=== PATIENT | male | born 1940 | race Caucasian/White ===

== ENCOUNTER → 2017-03-07 | Outpatient (CLI) | payer BC, OTHER ==
[~2017-03-07] MED LIST: AMANTADINE50 MG/5 ML PO; B COMPLEX1 EAC1 PO; B COMPLEX1 EACH PO; CENTRUM SILVER1 EAC2 PO; CIPRO500 MG PERTUBE; CIPRO500 MG PO; COENZYME Q10100 MG PO; COZAAR 50 MG TA50 M2 PO; CUBICIN500 MG IV; DIFLUCAN200 MG PO; EFFEXOR XR37.5 MG PO; EFFEXOR XR75 MG PO; JUVEN PACKET1 EACH PO; LIPITOR 20 MG T20 M1 PO; LOPRESSOR50 PO; METHYLPHENIDATE10 MG PO; MINOCIN100 MG PO; MOBIC7.5 MG PO; NEXIUM20 MG PO; NEXIUM40 MG PO; NORCO 5-325 TA1 EACH PO; NORVASC5 MG PO; NYSTATIN 1100000 U/M PO; OXYBUTYNIN 5 MG5 M2 PO; PLAVIX 75 MG TA75 M1 PO; PROSCAR 5MG TABL5 MG PO; VANCOMYCIN1 GM/2502 IVPB; VITAMIN D2000 UNIT PO; VITAMIN D3400 UNIT PO; VITAMINC500 PO; Vitamin D3 PO; XANAX 0.25 MG0.25 MG PO; ZINC50 MG PO
--- NOTE | 2017-03-08 13:25 | CON ---
[address] [address] CONSULTATION Name: GIANCARLODENIS Salomon Room: [facility]#: [id number] Admission: 03/07/17 Attend Phys: Jhonny Barahona DPM Discharge: Date of : 42 Report #: [id number] THIS REPORT FOR: //name// CC: Jhonny Arevalo DATE OF SERVICE: 03/07/2017 ATTENDING PHYSICIAN: Jhonny Barahona DPM REASON FOR EVALUATION: Right heel chronic ulceration with probable osteomyelitis involving the calcaneus. HISTORY OF PRESENT ILLNESS: Chart reviewed, the patient examined. The patient returns in followup. Clinically, he is about the same. Per spouse, he is eating well and has no evidence of fevers. On examination, the wound does appear to be generally clean; however, there is clearly exposed bone per debridement by Dr. Barahona. There is some bloody drainage. There is no evidence of purulence and no odor at this point. Deep right heel infection with exposed bone. I think at this point, we would extend the antibiotics, particularly minocycline at least another 2 weeks and may will be longer, he seems to be tolerating it okay, I suspect this is a better option than some sort of intervention where he ultimately his leg. <ELECTRONICALLY SIGNED> By: Travis Copeland MD 03/08/17 1325 0740 [id number] Copeland MD /kaden
== END ==
LOC: M.WC 01:51
DX: L89.614 Pressure ulcer of right heel, stage 4 (principal); I10 Essential (primary) hypertension; M86.071 Acute hematogenous osteomyelitis, right ankle and foot; Z85.51 Personal history of malignant neoplasm of bladder

== ENCOUNTER → 2017-03-21 | Outpatient (CLI) | payer BC, OTHER | LOC: M.WC 01:25 | DX: L89.614 Pressure ulcer of right heel, stage 4 (principal); M86.071 Acute hematogenous osteomyelitis, right ankle and foot; Z85.51 Personal history of malignant neoplasm of bladder; I10 Essential (primary) hypertension ==

== ENCOUNTER → 2017-04-04 | Outpatient (CLI) | payer BC, OTHER ==
--- NOTE | 2017-04-05 13:58 | CON ---
[address] [address] CONSULTATION Name: DENIS MONDRAGON Room: [facility].#: [id number] Admission: 04/04/17 Attend Phys: Jhonny Barahona DPM Discharge: Date of : 42 Report #: [id number] THIS REPORT FOR: //name// CC: Jhonny Arevalo DATE OF SERVICE: 04/04/2017 ATTENDING PHYSICIAN: Dr. Jhonny Mccann. He is seen in the outpatient wound care center for chronic infection involving the right heel, probable calcaneal osteomyelitis. 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 He was switched to a topical gentamicin. The wound clinically has improved. There is a minimal residual inflammation, it has actually decreased in size fairly dramatically, although there is still communication with the bone on probing. Chronic calcaneal osteomyelitis. At this point, continue current approach and see how he does clinically with the topical gentamicin. Secondly, he has developed some cloudiness in his urine. He has a longstanding indwelling catheter that was replaced recently. He is followed by Urology who did a culture earlier this week. Spouse is waiting to hear. At this point, he is not particularly symptomatic. He has not been systemically ill. He is not showing signs that he typically shows with urinary tract infections. We will hold off awaiting the culture results before we prescribe antibiotics. She is to call Urology in the morning. If family unable, to let me know and can empirically prescribe some therapy. <ELECTRONICALLY SIGNED> By: Travis Copeland MD 04/05/17 1358 0656 1054Josealirio Copeland MD /nt
== END ==
LOC: M.WC 01:28
DX: L89.614 Pressure ulcer of right heel, stage 4 (principal); M86.071 Acute hematogenous osteomyelitis, right ankle and foot; L89.892 Pressure ulcer of other site, stage 2; L89.893 Pressure ulcer of other site, stage 3; I10 Essential (primary) hypertension; Z85.51 Personal history of malignant neoplasm of bladder

== ENCOUNTER → 2017-04-18 | Outpatient (CLI) | payer BC, OTHER ==
--- NOTE | 2017-04-19 12:55 | CON ---
[address] [address] CONSULTATION Name: DENIS MONDRAGON Room: [facility]#: [id number] Admission: 04/18/17 Attend Phys: Jhonny Barahona DPM Discharge: Date of : 41 Report #: [id number] THIS REPORT FOR: //name// CC: Jhonny Arevalo DATE OF SERVICE: 04/18/2017 INFECTIOUS DISEASE CONSULTATION ATTENDING PHYSICIAN: Jhonny Barahona DPM. HISTORY OF PRESENT ILLNESS: He is here for ongoing treatment of right medial heel chronic ulceration and has clinical evidence of osteomyelitis, although he generally had been stable. The patient returns today in followup. He is on topical gentamicin at this point. The wound appears to be getting smaller, although there is still exposed bone. There is really minimal inflammation noted at the site. On questioning his spouse, he has not had fevers. He has been eating fairly well. He has had couple episodes of unexplained emesis, which is unusual for him. ASSESSMENT AND PLAN: Chronic right medial heel ulcer. At this point, we would continue the topical gentamicin based on previous cultures. We will monitor on an intermittent basis. At any point if he gets ill, we may have to reconsider systemic antibiotics. The wound appears to be getting smaller. The bone is hard at this point per Dr. Barahona. We will see him as needed. <ELECTRONICALLY SIGNED> By: Travis Copeland MD 04/19/17 1255 0728 1055Travis Copeland MD /kaden
== END ==
LOC: M.WC 01:46
DX: L89.614 Pressure ulcer of right heel, stage 4 (principal); M86.071 Acute hematogenous osteomyelitis, right ankle and foot; I10 Essential (primary) hypertension; L84 Corns and callosities; Z85.51 Personal history of malignant neoplasm of bladder

== ENCOUNTER → 2017-05-02 | Outpatient (CLI) | payer BC ==
--- NOTE | 2017-05-03 11:32 | CON ---
[address] [address] CONSULTATION Name: DENIS MONDRAGON Room: [facility].#: [id number] Admission: 05/02/17 Attend Phys: Jhonny Barahona DPM Discharge: Date of : 42 Report #: [id number] THIS REPORT FOR: //name// CC: Jhonny Arevalo DATE OF SERVICE: 05/02/2017 ATTENDING PHYSICIAN: Dr. Jhonny Barahona. He is here for chronic osteomyelitis involving the right calcaneus medial aspect setting of a chronic wound. HISTORY OF PRESENT ILLNESS: The patient returns today in followup of ongoing treatment, essentially topical for chronic osteomyelitis involving the left calcaneus. He has been fairly stable. He did receive a course of systemic antibiotics to treat a difficult complicated urinary tract infection and seems to have improved based on appearance and the spouse's opinion. He has not had fevers. He has been eating fairly well. On examination, the wound was debrided by Dr. Barahona. He noted there was some hard bone noted at the base, although milder inflammation noted superficially. Chronic ulceration involving the medial aspect of the right heel with suspected chronic osteomyelitis. We will continue topical gentamicin at this point. Wound actually seems to be healing with a sinus tract. Although given his overall situation and apparent lack of any sort of discomfort associated with it, I think it is reasonable to continue on this approach. See him in [address] weeks, [address]. Barahona is going to see him in 2. <ELECTRONICALLY SIGNED> By: Travis Copeland MD 05/03/17 1132 0653 0745Josealirio Copeland MD /nt
== END ==
LOC: M.WC 03:30
DX: L89.614 Pressure ulcer of right heel, stage 4 (principal); I10 Essential (primary) hypertension; M86.071 Acute hematogenous osteomyelitis, right ankle and foot; Z85.51 Personal history of malignant neoplasm of bladder

== ENCOUNTER → 2017-05-16 | Outpatient (CLI) | payer BC | LOC: M.WC 01:57 | DX: L89.614 Pressure ulcer of right heel, stage 4 (principal); I10 Essential (primary) hypertension; M86.071 Acute hematogenous osteomyelitis, right ankle and foot; Z85.51 Personal history of malignant neoplasm of bladder ==

== ENCOUNTER → 2017-05-30 | Outpatient (CLI) | payer BC ==
--- NOTE | 2017-05-31 10:52 | CON ---
[address] [address] CONSULTATION Name: DENIS MONDRAGON Room: [facility]#: [id number] Admission: 05/30/17 Attend Phys: Jhonny Barahona DPM Discharge: Date of : 41 Report #: [id number] THIS REPORT FOR: //name// CC: Jhonny Arevalo DATE OF SERVICE: 05/30/2017 ATTENDING PHYSICIAN: Jhonny Barahona DPM HISTORY OF PRESENT ILLNESS: He is here for chronic ulceration involving the posterolateral aspect of the right heel. On evaluation, it was noted surprisingly, he did have further decrease in the overall size of the wound, had longstanding issues with exposed bone that along with the case, has been utilizing topical therapy with gentamicin; however, he has developed 2 new wounds overlying 2 sites involving the Achilles as the insertion site was more proximal. These appear to be pressure related. There was some necrotic tissue at the base. Dr. Barahona removed that and bled easily. Secondly, he was called earlier this week, noted darkening of the urine, so urinalysis was sent off on Sunday which would have been the ; we are awaiting those results. The patient will perhaps start systemic antibiotics if indeed that culture proved to be positive. At this point, he is not overtly toxic. He had the catheter changed on the date of the culture and was collected after the exchange. Push the fluids including potentially acidifying the urine. We will discuss with him the next day or two as the results are available. We will see him back in 4 weeks. Continue topical therapy and wound care as prescribed by Dr. Barahona. <ELECTRONICALLY SIGNED> By: Travis Copeland MD 05/31/17 1052 1658 23Joyu Copeland MD /nt
== END ==
LOC: M.WC 02:26
DX: L89.614 Pressure ulcer of right heel, stage 4 (principal); M86.071 Acute hematogenous osteomyelitis, right ankle and foot; I10 Essential (primary) hypertension; Z85.51 Personal history of malignant neoplasm of bladder

== ENCOUNTER → 2017-06-06 | Outpatient (CLI) | payer BC | LOC: M.WC 01:43 | DX: S91.201D Unspecified open wound of right great toe with damage to nail, subsequent encounter (principal); S91.204D Unspecified open wound of right lesser toe(s) with damage to nail, subsequent encounter; S91.105D Unspecified open wound of left lesser toe(s) without damage to nail, subsequent encounter; L89.894 Pressure ulcer of other site, stage 4; M86.071 Acute hematogenous osteomyelitis, right ankle and foot; I10 Essential (primary) hypertension; Z85.51 Personal history of malignant neoplasm of bladder; X58.XXXD Exposure to other specified factors, subsequent encounter ==

== ENCOUNTER → 2017-06-13 | Outpatient (CLI) | payer BC | LOC: M.WC 02:52 | DX: L89.614 Pressure ulcer of right heel, stage 4 (principal); L89.893 Pressure ulcer of other site, stage 3; M86.071 Acute hematogenous osteomyelitis, right ankle and foot; I10 Essential (primary) hypertension; Z85.51 Personal history of malignant neoplasm of bladder ==

== ENCOUNTER → 2017-07-04 | Outpatient (CLI) | payer BC ==
[2017-07-04 15:05] LABS: URINE BILIRUBIN NEGATIVE (Negative); URINE BLOOD TRACE (Negative); URINE CLARITY CLOUDY; URINE COLOR YELLOW; URINE GLUCOSE-RANDOM NEGATIVE (Negative); URINE KETONES NEGATIVE (Negative); URINE LEUKOCYTES-REFLEX 2+ (Negative); URINE NITRITE-REFLEX POSITIVE (Negative); URINE PROTEIN 1+ (Negative); URINE SPECIFIC GRAVITY >= 1.030 (1.005-1.030); URINE UROBILINOGEN 0.2 E.U./dl (0.2-1.0)
[2017-07-04 15:12] LABS: HYALINE CASTS 0-3 Few /LPF (None Seen)
[2017-07-04 15:14] LABS: BACTERIA-REFLEX >30 Many /HPF (None Seen)
[2017-07-04 15:15] LABS: MUCUS 0-3 Light strn/LPF (None Seen); URINE WBC-REFLEX >25 Many /HPF (0-5); WBC CLUMPS Few (None Seen)
[2017-07-04 15:16] LABS: CRYSTALS None Seen /LPF (None Seen); SQUAMOUS 0-3 Few /LPF (0-3); URINE RBC 0-2 Rare /HPF (0-2)
--- NOTE | 2017-07-05 12:18 | CON ---
[address] [address] CONSULTATION Name: GIANCARLODENIS Latif Room: [facility]#: [id number] Admission: 07/04/17 Attend Phys: Jhonny Barahona DPM Discharge: Date of : 41 Report #: [id number] THIS REPORT FOR: //name// CC: Jhonny Arevalo DATE OF SERVICE: 07/04/2017 INFECTIOUS DISEASE CONSULTATION ATTENDING PHYSICIAN: Jhonny Barahona DPM. HISTORY OF PRESENT ILLNESS: Here for right heel chronic ulceration. Chart reviewed, the patient examined. The patient returns today in followup. Apparently, he has not been feeling well per spouse. Difficult to ascertain all the details. Certainly concerned about complicated urinary tract infection. He has a chronic indwelling Dumont. In addition to that, he has progression of the size of his heel wound. It is clear that he is unable to keep pressure off situated in his wheelchair. On examination, there is no exposed calcaneus at this point. ASSESSMENT AND PLAN: Chronic heel ulceration. We will continue efforts to offload in the setting of foot drop and ankle deviation, including topical therapy. We will additionally order a urinalysis for culture as required. We will see him back in 2 weeks. <ELECTRONICALLY SIGNED> By: Travis Copeland MD 07/05/17 1218 1453 [id number] Copeland MD /kaden
== END ==
LOC: M.WC 02:55
PROVIDERS: Podiatrist Foot & Ankle Surgery
DX: L89.614 Pressure ulcer of right heel, stage 4 (principal); I10 Essential (primary) hypertension; M86.071 Acute hematogenous osteomyelitis, right ankle and foot; R82.99 Other abnormal findings in urine; Z87.820 Personal history of traumatic brain injury; Z85.51 Personal history of malignant neoplasm of bladder

== ENCOUNTER → 2017-07-18 | Outpatient (CLI) | payer BC ==
--- NOTE | 2017-07-19 12:33 | CON ---
[address] [address] CONSULTATION Name: DENIS MONDRAGON Room: [facility].#: [id number] Admission: 07/18/17 Attend Phys: Jhonny Barahona DPM Discharge: Date of : 41 Report #: [id number] THIS REPORT FOR: //name// CC: Jhonny Arevalo DATE OF SERVICE: 07/18/2017 INFECTIOUS DISEASE CONSULTATION FOLLOWUP The patient is seen at the [facility] [place]. ATTENDING PHYSICIAN: Dr. Jhonny Mccann. HISTORY OF PRESENT ILLNESS: He is here for followup right posterior heel chronic ulceration. He likely has a calcaneal chronic osteomyelitis. The patient returns in followup, having been seen in the last couple of weeks. He was determined to have complicated urinary tract infection. He does have a long-standing indwelling Dumont catheter with growth of Escherichia coli. He was placed on ciprofloxacin and seems to have responded. On wound evaluation, there is still a moderate degree of debris and some necrotic material. There is no exposed bone at this point. The original wound seems to have healed over the medial aspect. ASSESSMENT AND PLAN: Chronic calcaneal osteomyelitis. At this point, utilizing some topical therapy to the wound site. He has been clinically stable. He is on ciprofloxacin and we will extend that. Due to ongoing issues with malodor of the urine, the catheter needs to be changed as well. I did discuss with the patient's spouse to see in followup at his next visit. <ELECTRONICALLY SIGNED> By: Travis Copeland MD 07/19/17 1233 0837 1035Josealirio Copeland MD /nt
== END ==
LOC: M.WC 03:41
DX: L89.614 Pressure ulcer of right heel, stage 4 (principal); S91.101D Unspecified open wound of right great toe without damage to nail, subsequent encounter; S91.204D Unspecified open wound of right lesser toe(s) with damage to nail, subsequent encounter; S91.105D Unspecified open wound of left lesser toe(s) without damage to nail, subsequent encounter; I10 Essential (primary) hypertension; M86.071 Acute hematogenous osteomyelitis, right ankle and foot; Z87.820 Personal history of traumatic brain injury; Z85.51 Personal history of malignant neoplasm of bladder; X58.XXXD Exposure to other specified factors, subsequent encounter

== ENCOUNTER → 2017-08-01 | Outpatient (CLI) | payer BC | LOC: M.WC 04:15 | DX: L89.614 Pressure ulcer of right heel, stage 4 (principal); I10 Essential (primary) hypertension; M86.071 Acute hematogenous osteomyelitis, right ankle and foot; Z87.820 Personal history of traumatic brain injury; Z85.51 Personal history of malignant neoplasm of bladder ==

== ENCOUNTER 2017-08-08 03:36 | Inpatient (IN) | payer BC ==
[~2017-08-08] VITALS: Ht 172.7 cm; Wt 76.2 kg
[~2017-08-08 03:36] MED LIST changes: -COENZYME Q10100 MG PO; -PLAVIX 75 MG TA75 M1 PO; -XANAX 0.25 MG0.25 MG PO; -ZINC50 MG PO
[2017-08-08 14:15] VITALS: BP 124/65
[2017-08-08] MEDS ORDERED: ZINC50 MG PO (15:31)
[2017-08-08] MEDS ORDERED: LOPRESSOR50 PO (15:32)
[2017-08-08] MEDS ORDERED: MOBIC7.5 MG PO (15:34)
[2017-08-08] MEDS ORDERED: COENZYME Q10100 MG PO (15:39)
[2017-08-08] MEDS ORDERED: AMANTADINE50 MG/5 ML PO (15:40)
[2017-08-08] MEDS ORDERED: XANAX 0.25 MG0.25 MG PO (15:40)
[2017-08-08 16:05] LABS: HEMATOCRIT 39.7 % (42.0-52.0); HEMOGLOBIN 13.3 gm/dL (14.0-18.0); MCH 29.7 pg (26.0-34.0); MCHC 33.6 g/dL (28.0-37.0); MCV 88.4 fL (80.0-100.0); MPV 8.2 fl. (7.2-11.1); RBC 4.49 mil/uL (4.50-6.00); RDW-CV 13.9 % (10.5-14.5); WBC 15.8 thou/uL (4.0-11.0)
[2017-08-08 16:05] LABS: URINE BILIRUBIN NEGATIVE (Negative); URINE BLOOD TRACE (Negative); URINE CLARITY CLEAR; URINE COLOR YELLOW; URINE GLUCOSE-RANDOM NEGATIVE (Negative); URINE KETONES NEGATIVE (Negative); URINE LEUKOCYTES-REFLEX 3+ (Negative); URINE NITRITE-REFLEX POSITIVE (Negative); URINE PROTEIN NEGATIVE (Negative); URINE SPECIFIC GRAVITY 1.025 (1.005-1.030); URINE UROBILINOGEN 0.2 E.U./dl (0.2-1.0)
[2017-08-08 16:13] LABS: SQUAMOUS NONE SEEN /LPF (0-3); URINE WBC-REFLEX >25 Many /HPF (0-5)
[2017-08-08 16:13] LABS: INR 1.1; PROTIME 10.4 Seconds (9.20-11.50)
[2017-08-08 16:14] LABS: CASTS None Seen /LPF (None Seen); CRYSTALS None Seen /LPF (None Seen); MUCUS None Seen strn/LPF (None Seen); URINE RBC 0-2 Rare /HPF (0-2); WBC CLUMPS Few (None Seen)
[2017-08-08 16:15] LABS: CALCIUM 9.9 mg/dL (8.5-10.1); CREATININE 0.9 mg/dL (0.6-1.3); POTASSIUM 4.2 mmol/L (3.5-5.1)
[2017-08-08 16:29] LABS: ALBUMIN 3.3 g/dL (3.4-5.0); TOTAL BILIRUBIN 0.4 mg/dL (<0.1-1.0); TOTAL PROTEIN 7.4 g/dL (6.4-8.2)
[2017-08-09 00:29] VITALS: BP 124/82
[2017-08-09 04:57] LABS: ABSOLUTE BASOPHILS 0.1 thou/uL (0.0-0.2); ABSOLUTE EOSINOPHILS 0.5 thou/uL (0.0-0.7); ABSOLUTE LYMPHOCYTES 3.1 thou/uL (0.8-5.3); ABSOLUTE MONOCYTES 1.3 thou/uL (0.0-1.2); ABSOLUTE NEUTROPHILS 7.9 thou/uL (1.6-8.1); BASOPHILS 0.9 %; EOSINOPHILS 3.7 %; HEMATOCRIT 37.8 % (42.0-52.0); HEMOGLOBIN 12.6 gm/dL (14.0-18.0); MCH 29.4 pg (26.0-34.0); MCHC 33.5 g/dL (28.0-37.0); MONOCYTES 10.3 %; MPV 8.2 fl. (7.2-11.1); NUCLEATED RBCS 0 /100WBC; PLATELET COUNT* 318 thou/uL (150-400); POLYS 61.1 %; RDW-CV 13.9 % (10.5-14.5); WBC 12.9 thou/uL (4.0-11.0)
[2017-08-09 05:09] LABS: CALCIUM 9.4 mg/dL (8.5-10.1); CREATININE 0.9 mg/dL (0.6-1.3); POTASSIUM 3.7 mmol/L (3.5-5.1)
[2017-08-09 09:30] VITALS: BP 113/55
--- NOTE | 2017-08-09 11:52 | CON ---
[facility] [address] [place] [address] CONSULTATION Name: DENIS MONDRAGON Room: [address] IN M.R.#: [id number] Admission: 08/08/17 Attend Phys: Ezekiel Downs MD Discharge: Date of : 41 Report #: [id number] THIS REPORT FOR: //name// CC: Ezekiel [facility] DATE OF SERVICE: 08/08/2017 INFECTIOUS DISEASE CONSULTATION ATTENDING PHYSICIAN: Ezekiel Downs M.D. REASON FOR EVALUATION: Chronic osteomyelitis involving the right calcaneus. HISTORY OF PRESENT ILLNESS: Chart reviewed, the patient examined. This is a 77-year-old with extensive medical history, who has traumatic brain injury; it has left quite debilitated. He is noncommunicative at the moment, but generally has very little interaction. It is unclear the degree in which he understands. He is paraplegic. He has had a chronic ulceration involving the right heel. He has been followed by the Wound Care Center. He had been on chronic suppressive therapy due to isolation with methicillin-resistant Staphylococcus aureus. He was seen in the Wound Care today and was felt to have progressed significantly from previous. He had been relatively stable from the wound standpoint for the last several weeks. He has had issues ongoing with chronic indwelling catheter and recurrent urinary tract infections. He continues to show evidence of marked pyuria and cultures, both the wound and the urine are pending, although gram stain of the former shows gram-positive cocci. He is scheduled for n.p.o. status for possible surgery. Imaging studies are pending. ALLERGIES: None known. MEDICATIONS: Include metoprolol, oxybutynin, finasteride, cholecalciferol, venlafaxine, amlodipine, pantoprazole, atorvastatin, losartan, ascorbic acid, enoxaparin, p.r.n. analgesics and antiemetics. PAST MEDICAL HISTORY: As described above, traumatic brain injury, hypertension, history of bladder cancer and right carotid endarterectomy. SOCIAL HISTORY: Former smoker. No ethanol. FAMILY HISTORY: Noncontributory. REVIEW OF SYSTEMS: Not obtained. PHYSICAL EXAMINATION: [place] [address] CONSULTATION Name: DENIS MONDRAGON Room: [address] IN [facility]#: [id number] Admission: 08/08/17 Attend Phys: Ezekiel Downs MD Discharge: Date of : 41 Report #: [id number] GENERAL: He is chronically ill-appearing. He is really minimally responsive at this point, in lcbu-ni-dhynnpob distress. VITAL SIGNS: Temperature 98.2, pulse 78, respirations 16 and blood pressure 124/65. SKIN: Warm and dry. NECK: Appears to be supple. LUNGS: Diminished breath sounds; otherwise, I think, fairly clear. HEART: Regular. I do not appreciate a murmur. ABDOMEN: Soft, mildly distended. There are no peritoneal signs. EXTREMITIES: He has got a dressing on his foot. GENITOURINARY: Deferred. RECTAL: Deferred. LABORATORY DATA: His wound culture is pending. Gram stain showed moderate gram-positive cocci, few white cells. CBC: White count of 15.8, H and H 13.3 and 39.7 and platelets of 342,000. Urinalysis greater than 25 white cells, 10-30 bacteria. Lactic acid 2.1. Electrolytes: Sodium 139, potassium 4.2, chloride 100, bicarbonate is 30, BUN and creatinine 25 and 0.9 and glucose 104. LFTs unremarkable. Albumin of 3.3. Total protein of 7.4. Estimated GFR of 82. ASSESSMENT AND PLAN: Chronic osteomyelitis involving the right calcaneus. We will start empiric therapy. He has known history of methicillin-resistant Staphylococcus aureus. He has really been on chronic suppressive therapy for a number of weeks to months, now seems to have worsened. We will await imaging studies, pending decision by Dr. Barahona about any surgical intervention at that point. I know there has been a discussion in the past about possible amputation. At this point, it does not seem like the leg is particularly functional and it may be a considered course of action. <ELECTRONICALLY SIGNED> By: Travis Copeland MD 08/09/17 1152 1646 0210Joyu Copeland MD /nt
--- NOTE | 2017-08-09 15:18 | EKG ---
[place] [address] ELECTROCARDIOGRAM REPORT Name: DENIS MONDRAGON Room: [address] ADM IN M.R.#: [id number] Admission: 08/08/17 Attend Phys: Ezekiel Downs MD Discharge: Date of : 41 Report #: [id number] THIS REPORT FOR: //name// [facility] Test Date: 2017-08-09 Test Time: 12:59:54 Pat Name: DENIS MONDRAGON Department: Room: [address] Gender: M Ammonia Refrigeration Technician: : 1940 Requested By: Jhonny Barahona Order Number: [id number] Reading MD: Harry Woody Measurements Intervals [place] Rate: 61 P: -59 SD: 232 QRS: 4 QRSD: 89 T: 101 QT: 405 QTc: 408 Interpretive Statements Sinus or ectopic atrial rhythm Prolonged SD interval Abnormal R-wave progression, early transition Nonspecific T abnormalities, lateral leads Compared to ECG 01/31/2017 16:22:03 Ectopic atrial rhythm now present First degree AV block now present Sinus rhythm no longer present T-wave abnormality still present Electronically Signed On 08-09-2017 15:18:04 CDT by Harry Woody [email or web address] <ELECTRONICALLY SIGNED> By: Harry Woody MD, [facility] 08/09/17 1518 1259 1259 Harry Woody MD, [facility] /EPI
[2017-08-09 18:54] VITALS: BP 131/68
[2017-08-09 19:45] VITALS: BP 152/65
[2017-08-10 00:31] VITALS: BP 120/54
[2017-08-10 03:53] VITALS: BP 133/58
[2017-08-10 07:50] VITALS: BP 114/54
[2017-08-10 11:09] VITALS: BP 120/47
[2017-08-10 16:59] VITALS: BP 132/62
[2017-08-10 19:45] VITALS: BP 105/60
[2017-08-11] VITALS (7 sets, daily range): BP systolic 103–139; BP diastolic 40–89
[2017-08-12 03:35] VITALS: BP 126/40
[2017-08-12 04:21] LABS: HEMATOCRIT 34.2 % (42.0-52.0); HEMOGLOBIN 11.5 gm/dL (14.0-18.0); MCH 29.9 pg (26.0-34.0); MCHC 33.8 g/dL (28.0-37.0); MCV 88.5 fL (80.0-100.0); MPV 8.1 fl. (7.2-11.1); RBC 3.86 mil/uL (4.50-6.00); RDW-CV 13.8 % (10.5-14.5); WBC 10.4 thou/uL (4.0-11.0)
[2017-08-12 04:42] LABS: CALCIUM 8.6 mg/dL (8.5-10.1); CREATININE 0.9 mg/dL (0.6-1.3)
[2017-08-12 08:06] VITALS: BP 136/64
[2017-08-12 12:00] VITALS: BP 120/58
[2017-08-12 16:08] VITALS: BP 100/51
[2017-08-12 20:30] VITALS: BP 137/59
[2017-08-13] VITALS (11 sets, daily range): BP systolic 115–154; BP diastolic 51–70
[2017-08-13 04:21] LABS: HEMATOCRIT 33.7 % (42.0-52.0); HEMOGLOBIN 11.3 gm/dL (14.0-18.0); MCH 29.4 pg (26.0-34.0); MCHC 33.4 g/dL (28.0-37.0); MCV 88.2 fL (80.0-100.0); RBC 3.83 mil/uL (4.50-6.00); RDW-CV 13.6 % (10.5-14.5); WBC 11.3 thou/uL (4.0-11.0)
[2017-08-13 04:38] LABS: CALCIUM 8.6 mg/dL (8.5-10.1); POTASSIUM 3.4 mmol/L (3.5-5.1)
[2017-08-14] VITALS (7 sets, daily range): BP systolic 112–158; BP diastolic 39–70
[2017-08-14 11:59] LABS: URINE BILIRUBIN NEGATIVE (Negative); URINE BLOOD NEGATIVE (Negative); URINE CLARITY CLEAR; URINE COLOR YELLOW; URINE GLUCOSE-RANDOM NEGATIVE (Negative); URINE KETONES NEGATIVE (Negative); URINE LEUKOCYTES-REFLEX NEGATIVE (Negative); URINE NITRITE-REFLEX NEGATIVE (Negative); URINE PROTEIN TRACE (Negative); URINE SPECIFIC GRAVITY 1.015 (1.005-1.030); URINE UROBILINOGEN 0.2 E.U./dl (0.2-1.0)
[2017-08-15] MEDS ORDERED: PLAVIX 75 MG TA75 M1 PO (00:15)
[2017-08-15 04:00] VITALS: BP 137/57
[2017-08-15 08:10] VITALS: BP 133/44
[2017-08-15 15:03] VITALS: BP 133/44
[2017-08-15 16:58] VITALS: BP 116/52
[2017-08-15 19:40] VITALS: BP 137/55
[2017-08-16] VITALS (8 sets, daily range): BP systolic 118–133; BP diastolic 44–55
[2017-08-16] MEDS ORDERED: PLAVIX 75 MG TA75 M1 PO (12:00)
--- NOTE | 2017-08-16 16:12 | PATH ---
[address] [address] PATHOLOGY RPT PROCEDURE Name: DENIS WILKINS Room: [address] IN M.R.#: [id number] Admission: 08/08/17 Date of : 42 Discharge: 08/16/17 Report #: [id number] Path Case #: [id number] [facility] Accession Number: [id number] . 01 Material submitted: . RIGHT CALCANEUS BONE, SUTURE ON DEEP BONE . 02 Diagnosis: Right calcaneus (suture on deep bone): - Two segments of benign bone with prominent osteomyelitis, and with sutured surface (black-inked) free of osteomyelitis. (DEBORAH:db; 08/16/2017) LBQ/08/16/2017 . 02 Electronically signed: . Cruzito Pompa MD, Pathologist NPI- [id number] . 01 Gross description: . Received in formalin labeled "Denis Wilkins, right calcaneus suture on deep bone" and consists of 2 solid, brown, taveras, and hemorrhagic bone fragments measuring 4.6 x 4.3 x 2.5 cm and 4.5 x 3.5 x 1.2 cm. A suture is attached to the smaller bone fragment. The side with attached suture is inked black. The larger bone fragment shows a smooth uniform margin while the opposite side is convex with markedly roughened articular cartilage. Sectioning the larger fragment reveals solid yellow taveras cancellous bone. Sectioning the smaller reveals a similar parenchyma. Caseworker sections are submitted in cassettes A1-A3 after decalcification. . A1 larger fragment of bone, hvac sales representative A2-A3 smaller fragment of bone with attached suture, hvac sales representative . ([facility]; 08/14/2017) . The wet specimen is reexamined and additional sections are submitted in A4-A6 (small oriented fragment of bone). ([facility]; 08/15/2017) JBR/JBR . 02 CPT . 964567, [id number] Performed at: [address] [id number] MD Adin Corcoran MD Phone: [phone] Performed at: [address] [address] [place], [place] [id number] [place] [address] PATHOLOGY RPT PROCEDURE Name: JUVENTINO WILKINSE Salomon Room: [address] IN M.R.#: [id number] Admission: 08/08/17 Date of : 42 Discharge: 08/16/17 Report #: [id number] Path Case #: [id number] [facility] Phone: [phone]
--- NOTE | 2017-08-22 12:45 | OP ---
[address] [address] OPERATIVE REPORT Name: DENIS MONDRAGON Room: [address] IN M.R.#: [id number] Admission: 08/08/17 Attend Phys: Ezekiel Downs MD Discharge: 08/16/17 Date of : 41 Report #: [id number] THIS REPORT FOR: //name// CC: Ezekiel Arevalo DATE OF SERVICE: 08/09/2017 SURGEON: Jhonny Barahona DPM PREOPERATIVE DIAGNOSIS: Osteomyelitis, right posterior calcaneus with nonhealing ulceration. POSTOPERATIVE DIAGNOSIS: Osteomyelitis, right posterior calcaneus with nonhealing ulceration. PROCEDURES: 1. Partial calcanectomy, right foot. 2. Pedicle skin flap, right foot. 3. Incision and drainage, right foot. ANESTHESIA: General endotracheal. INJECTABLES: 30 mL of a 1:1 mixture of 0.5% Marcaine plain and 1% lidocaine plain. HEMOSTASIS: Right calf tourniquet at 250 mmHg. ESTIMATED BLOOD LOSS: Minimal. SPECIMENS: Calcaneus, right foot. CULTURES: 1. Bone, right calcaneus, aerobic and anaerobic. 2. Soft tissue, right foot, aerobic and anaerobic. SUTURES: 2-0 nylon. COMPLICATIONS: None. DESCRIPTION OF PROCEDURE: The patient was brought to the OR and placed on the table supine with induction of general endotracheal anesthesia. He was then placed prone and proper positioning with padding. A well-padded right calf tourniquet was placed and the right ankle block was given. The extremity was prepped and draped aseptically, exsanguinated with inflation of the tourniquet. [address] [address] OPERATIVE REPORT Name: DENIS MONDRAGON Room: [address] IN M.R.#: [id number] Admission: 08/08/17 Attend Phys: Ezekiel Downs MD Discharge: 08/16/17 Date of : 41 Report #: [id number] Anesthesia was checked and found to be adequate. A #10 surgical blade was utilized to create a linear incision over the right posterior calcaneus. The incision originated at the distal tendo Achilles and I advanced it longitudinally along the central aspect of the calcaneus through the wound to the inferior heel where there was intact soft tissue. I then excised the posterior ulceration down to bone and excised it and sent to represent a portion for aerobic and anaerobic soft tissue cultures. The soft tissue envelope was reflected off the posterior calcaneus and the bone was discolored, soft and necrotic. There was an infected and necrotic soft tissue adjacent to the bone, which I debrided. A large oscillating saw blade was utilized to transect the right posterior calcaneus down to what appeared to be clinically create a healthy bone free of necrosis or infection. A portion of the transected bone was sent for aerobic and anaerobic bone cultures. Remaining bone was sent for pathology. I would like to note that 2 separate portions of bone were sent for pathology. The initial and larger tuberosity segment was submitted and then, a second thinner slice of bone was sent, which I placed a suture in for identification, which we labeled the proximal or deeper bone margin. Electrocautery was utilized for hemostasis and the wound was pulse lavaged with 3 liters of sterile saline with bacitracin irrigant. The skin was remodeled and the pedicled skin flap from the lateral aspect of the foot was mobilized more centrally and sutured with 2-0 nylon in simple interrupted fashion. Roughly 90% of the wound was primarily closed with suture and the central area where the tissue could not be was then packed with half inch NuGauze. The foot was cleansed and dried and dressed with 4 x 4s, ABDs, Kerlix and Darek wrap. Tourniquet was deflated. The patient left the OR alert and oriented with no complications noted. <ELECTRONICALLY SIGNED> By: Jhonny Barahona DPM 08/22/17 1245 2100Dasuad Barahona DPM /kaden
--- NOTE | 2017-08-22 12:45 | CON ---
[address] [address] CONSULTATION Name: DENIS MONDRAGON Room: [address] IN M.R.#: [id number] Admission: 08/08/17 Attend Phys: Ezekiel Downs MD Discharge: 08/16/17 Date of : 42 Report #: [id number] THIS REPORT FOR: //name// CC: Ezekiel Arevalo DATE OF SERVICE: 08/11/2017 CHIEF COMPLAINT: Status post right partial calcanectomy for osteomyelitis growing MRSA. He is on parenteral vancomycin and ceftazidime. He is scheduled for right lower extremity angiogram on Sunday for treatment of popliteal stenosis. No new labs for review. PHYSICAL EXAMINATION: Surgical incision is well coapted with no dehiscence, inflammation or kris cellulitis. The postoperative wound to the right heel has been packed with Aquacel Ag, with some delayed capillary refill to the domi-wound skin margins. There is no underlying fluctuance or crepitation. There is no active bleeding. Small amount of serous drainage is present on his bandage. His distal foot and toes are warmer today, with capillary refill roughly 0.5 seconds. IMPRESSION: Osteomyelitis, right calcaneus, status post partial calcanectomy. PLAN: I debrided the wound with a sterile curette to remove subcutaneous tissue and slough from the wound interior. Scant bleeding stopped with pressure. The wound was then flushed and packed with Aquacel Ag and then the exterior incision covered with the same. ABDs, Kerlix and loosely applied Darek were applied followed by a PRAFO boot for offloading. I will change the patient's bandage tomorrow. He is scheduled for angiogram on Sunday to address his right lower extremity to evaluate his right popliteal disease. <ELECTRONICALLY SIGNED> By: Jhonny Barahona DPM 08/22/17 1245 1151 1319Dasuad Barahona DPM /nt
--- NOTE | 2017-08-22 12:45 | CON ---
[address] [address] CONSULTATION Name: GIANCARLODENIS Salomon Room: [address] IN M.R.#: [id number] Admission: 08/08/17 Attend Phys: Ezekiel Downs MD Discharge: 08/16/17 Date of : 42 Report #: [id number] THIS REPORT FOR: //name// CC: Ezekiel Arevalo DATE OF SERVICE: 08/14/2017 CHIEF COMPLAINT: Status post right partial calcanectomy and status post angioplasty and popliteal stent to right lower extremity. He is stable. Surgical cultures growing MRSA. Surgical pathology report is pending. There are no new labs today for review. PHYSICAL EXAMINATION: Surgical incision is well coapted with no pallor, cyanosis or signs of dehiscence. The distal open surgical wound has some pallor and necrosis at the margins with no active bleeding from the wound bed. No inflammation or kris cellulitis to the right posterior heel or periwound. IMPRESSION: Osteomyelitis of right calcaneus, type 2 diabetes mellitus, peripheral vascular disease. PLAN: The wound was cleansed and repacked with Aquacel Ag. Externally, it was covered with Aquacel Ag, ABDs, Kerlix gauze and offload in a PRAFO boot. We will check surgical pathology for margins when available. <ELECTRONICALLY SIGNED> By: Jhonny Barahona DPM 08/22/17 1245 1740 [id number] Barahona DPM /kaden
--- NOTE | 2017-08-22 12:45 | CON ---
[address] [address] CONSULTATION Name: DENIS MONDRAGON Room: [address] IN M.R.#: [id number] Admission: 08/08/17 Attend Phys: Ezekiel Downs MD Discharge: 08/16/17 Date of : 42 Report #: [id number] THIS REPORT FOR: //name// CC: Ezekiel Arevalo DATE OF SERVICE: 08/15/2017 CHIEF COMPLAINT: Status post right partial calcanectomy for osteomyelitis with recent right popliteal angioplasty and stent placement. Surgical tissue and bone cultures growing MRSA. I do not see a surgical pathology report in the computer, so I have to call Pathology Department for that. The patient has been afebrile with no constitutional symptoms. No new labs for review. PHYSICAL EXAMINATION: Foot is warmer since the angioplasty and stenting. Surgical incision has well coapted with no dehiscence. The distal postoperative wound has some necrosis to the margins with purpura, relatively unchanged since yesterday. There is no active bleeding. Capillary refill is less than 1 second to the intact periwound tissue. IMPRESSION: Osteomyelitis, right calcaneus; type 2 diabetes mellitus; peripheral arterial disease. PLAN: Excisional ulcer debridement with a curette to remove subcutaneous tissue from the wound bed. The wound was cleansed and packed with Aquacel Ag, covered with ABDs, Kerlix, and a PRAFO boot. I will change bandage daily while he is hospitalized. <ELECTRONICALLY SIGNED> By: Jhonny Barahona DPM 08/22/17 1245 1502 [id number] Barahona DPM /nt
--- NOTE | 2017-08-22 12:45 | CON ---
[address] [address] CONSULTATION Name: GIANCARLODENIS Salomon Room: [address] IN M.R.#: [id number] Admission: 08/08/17 Attend Phys: Ezekiel Downs MD Discharge: 08/16/17 Date of : 42 Report #: [id number] THIS REPORT FOR: //name// CC: Ezekiel Arevalo MD DATE OF SERVICE: 08/12/2017 CHIEF COMPLAINT AND HISTORY OF PRESENT ILLNESS: Status post right partial calcanectomy for osteomyelitis that grew MRSA and bone and soft tissue. He is on parenteral ceftazidime and vancomycin. He is scheduled for a right lower extremity angiogram tomorrow with Dr. Ramesh. He has been afebrile, stable vitals. Pain appears well controlled. Surgical pathology is pending. LABORATORY DATA: WBC 10.4, RBC 3.86, hemoglobin 11.5, hematocrit 34.2, platelets 290. His BUN is 13, creatinine 0.9, glucose is 90. PHYSICAL EXAMINATION: The proximal incision remains well coapted with no inflammation, dehiscence or signs of acute vascular embarrassment. The surgical wound is stable with some nonblanching purpura along the skin margins indicative of some vascular compromise to the skin edges. No active bleeding, no fluctuance or crepitation, no odor or necrosis. The foot temperature gradient is warm proximally to cool to the toes. This is unchanged since prior to surgery. No popliteal adenopathy, no calf tenderness. IMPRESSION: Osteomyelitis, right calcaneus, status post partial calcanectomy. PLAN: Excisional wound debridement with a curette to excise subcutaneous tissue from the wound bed margin. Scant bleeding was stopped with pressure. The wound was cleansed and packed with Aquacel Ag and covered with Aquacel Ag, ABDs and Kerlix gauze with PRAFO boot for offloading. <ELECTRONICALLY SIGNED> By: Jhonny Barahona DPM 08/22/17 1245 1100 [id number] Barahona DPM /nt
--- NOTE | 2017-09-26 08:35 | OP ---
[facility] [address] [place] [address] OPERATIVE REPORT Name: DENIS MONDRAGON Room: [address] IN M.R.#: [id number] Admission: 08/08/17 Attend Phys: Ezekiel Downs MD Discharge: 08/16/17 Date of : 41 Report #: [id number] THIS REPORT FOR: //name// CC: Jhonny Aervalo DATE OF SERVICE: 08/13/2017 PREOPERATIVE DIAGNOSIS: Peripheral vascular disease with heel ulcer, right lower extremity. POSTOPERATIVE DIAGNOSIS: Peripheral vascular disease with heel ulcer, right lower extremity. SURGEON: John Ramesh DO. PLATING STRIPPER: None. PROCEDURE: 1. Ultrasound-guided access of left common femoral artery. 2. Aortogram. 3. Right lower extremity angiogram catheter position third order. 4. Angioplasty of tibioperoneal trunk, popliteal artery and distal superficial femoral artery with Bard Ultraverse 3 mm x 150 angioplasty balloon. 5. Stenting of the right popliteal and proximal superficial femoral artery with Bard LifeStent 6 mm x 120 mm, postdilated with Ultraverse 035, 6 mm x 100 mm. 6. Limited angiogram of the left common femoral artery. 7. Angio-Seal closure of the left common femoral artery. ANESTHESIA: Moderate sedation. ESTIMATED BLOOD LOSS: Minimal. SPECIMEN: None. COMPLICATIONS: None. CONDITION: Stable. DISPOSITION: Floor. INDICATIONS FOR THE PROCEDURE AND CONSENT: The patient is a 77-year-old male being managed by Dr. Barahona for a right heel ulcer. The patient was identified to have significant severe peripheral vascular disease unlikely to heal given inadequate blood flow. Recommendation for a right lower extremity angiogram and possible intervention was made. Risks and benefits were discussed, infection, [address] [address] OPERATIVE REPORT Name: DENIS MONDRAGON Room: [address] IN M.R.#: [id number] Admission: 08/08/17 Attend Phys: Ezekiel Downs MD Discharge: 08/16/17 Date of : 41 Report #: [id number] bleeding, need for additional procedures including bypass, amputation despite intervention, stroke, heart attack and . The patient wished to proceed, was consented and scheduled. PROCEDURE IN DETAIL: After timeout was performed, the patient was placed in the supine position with sterile prep and drape of the anterior and bilateral groins and bilateral thighs. Ultrasound was utilized to identify the left common femoral artery and Seldinger technique used to place 6-Japanese sheath. Glidewire Advantage and UF catheter were advanced into the infrarenal aorta and the aortogram performed. This demonstrated the aorta, bilateral common internal and external iliac arteries to be widely patent without flow limitation or stenosis. There is significant hardware visualized in the right hip area from previous orthopedic surgery. I retracted the UF catheter to the aortogram position and advanced the Glidewire Advantage and UF catheter into the right external iliac artery and performed a right lower extremity angiogram. This demonstrated the right proximal SFA to be patent in approximately the mid level just above Jeremy's canal. There were tandem stenoses. There was a significant stenosis of more than 95% just above the patella on the right side. Then the popliteal artery appeared to occlude. There was reconstitution of the vasculature through geniculate collaterals of the distal popliteal artery, which appeared diminutive and small. The anterior tibial, tibioperoneal trunk, posterior tibial and peroneal arteries appeared patent, although the posterior tibial had significant stenosis and disease proximally. Distally, the anterior tibial vessel appeared to be the main outflow for the foot. The posterior tibial distally was never well visualized. It appeared occluded in the midcalf and may perhaps have an AV malformation at that level. At the ankle level, the posterior tibial did reconstitute. I then systemically heparinized the patient with 6000 units of heparin with intention to treat. A 6-Japanese up and over sheath was advanced in the right external iliac artery and a Glidewire Advantage and seeker catheter were advanced down to the level of the near occlusion. I then was able to negotiate the Glidewire Advantage beyond the 95% stenosis and the wire actually advanced fairly easily down into the distal popliteal vessel. Repeat imaging at this level demonstrated a dissective pattern; however, the distal vasculature still appeared patent and I felt that at some point there was a connection between the anterior tibial on the location of the catheter at the popliteal vessel. I was able to negotiate a 0.014 wire into the anterior tibial vessel and performed balloon angioplasty of the occluded popliteal segment with the 3 mm Ultraverse balloon. After this was performed, I repeated imaging proximally using a ____ technology and there appeared to be in line flow into the anterior tibial vessel. I therefore stented the heavily calcified popliteal occlusion with the 6 mm LifeStent back and using a longer stent was able to treat the Jeremy's canal disease as well. This was then postdilated with a 6 mm balloon more gently distally as the vessel was small. A completion imaging demonstrated [address] [address] OPERATIVE REPORT Name: DENIS MONDRAGON Room: [facility] IN M.R.#: [id number] Admission: 08/08/17 Attend Phys: Ezekiel Downs MD Discharge: 08/16/17 Date of : 41 Report #: [id number] excellent radiographic result without flow limitation and preservation of the trifurcation. I was satisfied with this radiographic result. Retracting my sheath into the left external iliac artery, I performed a limited angiogram. The left common femoral artery appeared patent and appropriate for Angio-Seal closure. The proximal superficial femoral artery did demonstrate some calcific disease and the profunda artery was open. I deployed Angio-Seal in standard fashion. The patient tolerated the procedure well. Lap, needle and instrument counts correct. <ELECTRONICALLY SIGNED> By: John Ramesh DO 09/26/17 0835 1032 [id number] Ramesh DO /nt
== END 2017-08-16 14:32 | disposition home health service (06) | DRG 622 ==
LOC: M.WC 03:36 → M.3W 13:28 → M.WC 08-15 14:00 → M.3W 08-16 14:32
PROVIDERS: Internal Medicine; ADMIT Internal Medicine
PROC: 047M3ZZ Dilation of Right Popliteal Artery, Percutaneous Approach (ICD-10-PCS; principal; 2017-08-09)
PROC: B41F1ZZ Fluoroscopy of Right Lower Extremity Arteries using Low Osmolar Contrast (ICD-10-PCS; principal; 2017-08-09)
PROC: 0JBQ0ZZ Excision of Right Foot Subcutaneous Tissue and Fascia, Open Approach (ICD-10-PCS; principal; 2017-08-09)
PROC: 0QBL0ZZ Excision of Right Tarsal, Open Approach (ICD-10-PCS; principal; 2017-08-09)
PROC: 02HV33Z Insertion of Infusion Device into Superior Vena Cava, Percutaneous Approach (ICD-10-PCS; 2017-08-14)
PROC: B548ZZA Ultrasonography of Superior Vena Cava, Guidance (ICD-10-PCS; 2017-08-14)
PROC: B5181ZA Fluoroscopy of Superior Vena Cava using Low Osmolar Contrast, Guidance (ICD-10-PCS; 2017-08-14)
DX: E11.69 Type 2 diabetes mellitus with other specified complication (principal); L89.614 Pressure ulcer of right heel, stage 4; G93.40 Encephalopathy, unspecified; M86.8X7 Other osteomyelitis, ankle and foot; R65.10 Systemic inflammatory response syndrome (SIRS) of non-infectious origin without acute organ dysfunction; N39.0 Urinary tract infection, site not specified; E11.51 Type 2 diabetes mellitus with diabetic peripheral angiopathy without gangrene; I10 Essential (primary) hypertension; D64.9 Anemia, unspecified; J44.9 Chronic obstructive pulmonary disease, unspecified; Z93.3 Colostomy status; Z87.820 Personal history of traumatic brain injury; Z85.51 Personal history of malignant neoplasm of bladder; Z87.891 Personal history of nicotine dependence; Z82.49 Family history of ischemic heart disease and other diseases of the circulatory system; Z83.3 Family history of diabetes mellitus; Z79.899 Other long term (current) drug therapy

== ENCOUNTER → 2017-08-22 | Outpatient (CLI) | payer BC ==
[~2017-08-22] MED LIST changes: +COENZYME Q10100 MG PO; +PLAVIX 75 MG TA75 M1 PO; +XANAX 0.25 MG0.25 MG PO; +ZINC50 MG PO
--- NOTE | 2017-08-24 06:43 | CON ---
[address] [address] CONSULTATION Name: DENIS MONDRAGON Room: [facility].#: [id number] Admission: 08/22/17 Attend Phys: Jhonny Barahona DPM Discharge: Date of : 42 Report #: [id number] THIS REPORT FOR: //name// CC: Jhonny Arevalo DATE OF SERVICE: 08/22/2017 ATTENDING PHYSICIAN: Dr. Jhonny Barahona. REASON FOR FOLLOWUP: Right foot calcaneal osteomyelitis. HISTORY OF PRESENT ILLNESS: Chart reviewed, patient examined. The patient returns today in followup, having been hospitalized and discharged within the last week, underwent operative debridement with partial removal of the calcaneus on the right, was confirmed to have chronic osteomyelitis. He had been discharged on parenteral antimicrobial therapy for a planned 6-week course. He is accompanied by his spouse. It is difficult to ascertain terms of his degree of discomfort, although he does when you try to manipulate the foot to get a better look at the plantar posterior aspect. There is some necrosis associated with the skin at the incision line and there is a residual cavity that has been packed. Overall degree of inflammation is somewhat decreased from preop. ASSESSMENT AND PLAN: Chronic osteomyelitis. We will continue the vancomycin, was made aware the trough is somewhat elevated at 24. We will decrease the dose from 1.25 q.12h. to 1.0 grams IV q.12h. We will continue to follow labs on a weekly basis including the vancomycin level trough, sed rate. Continue wound care as prescribed by Dr. Barahona. We will see him in 1 week. <ELECTRONICALLY SIGNED> By: Travis Copeland MD 08/24/17 0643 0847 1940Joyu Copeland MD /nt
== END ==
LOC: M.WC 04:10
DX: L89.614 Pressure ulcer of right heel, stage 4 (principal); I10 Essential (primary) hypertension; M86.071 Acute hematogenous osteomyelitis, right ankle and foot; Z85.51 Personal history of malignant neoplasm of bladder

== ENCOUNTER → 2017-08-22 | Outpatient (CLI) | payer BC ==
[2017-08-23 02:08] LABS: GLYCOHEMOGLOBIN (HGB A1C) 5.3 % (4.8-5.6)
== END ==
LOC: M.LAB 15:25
PROVIDERS: Nurse Practitioner
DX: E16.2 Hypoglycemia, unspecified (principal)

== ENCOUNTER → 2017-08-29 | Outpatient (CLI) | payer BC ==
--- NOTE | 2017-08-30 11:08 | CON ---
[address] [address] CONSULTATION Name: GIANCARLODENIS Salomon Room: [facility].#: [id number] Admission: 08/29/17 Attend Phys: Jhonny Barahona DPM Discharge: Date of : 42 Report #: [id number] THIS REPORT FOR: //name// CC: Jhonny Arevalo DATE OF SERVICE: 08/29/2017 ATTENDING PHYSICIAN: Dr. Jhonny Barahona. REASON FOR EVALUATION: The patient is right calcaneal osteomyelitis. He has got a chronic wound at this point and undergoing serial debridements, does have a wound VAC, baseline wound care approach. He has been on vancomycin, having completed roughly 3 weeks, always difficult to ascertain level of discomfort. Overall, he appears fairly stable, has not been systemically ill per spouse. Chronic osteomyelitis involving the calcaneus. He is post partial osteoectomy. We will continue the current approach with the antibiotics, I would imagine at least additional 3 weeks and see how he does. I will follow weekly labs. Continue wound care as per Dr. Barahona. <ELECTRONICALLY SIGNED> By: Travis Copeland MD 08/30/17 1108 0801 [id number] Copeland MD /nt
== END ==
LOC: M.WC 05:09
DX: L89.614 Pressure ulcer of right heel, stage 4 (principal); I10 Essential (primary) hypertension; Z85.51 Personal history of malignant neoplasm of bladder

== ENCOUNTER → 2017-09-12 | Outpatient (CLI) | payer BC ==
--- NOTE | 2017-09-13 12:30 | CON ---
[address] [address] CONSULTATION Name: GIANCARLODENIS Salomon Room: [facility].#: [id number] Admission: 09/12/17 Attend Phys: Jhonyn Barahona DPM Discharge: Date of : 41 Report #: [id number] THIS REPORT FOR: //name// CC: Jhonny Arevalo DATE OF SERVICE: 09/12/2017 ATTENDING PHYSICIAN: Jhonny Barahona DPM. HISTORY OF PRESENT ILLNESS: Here for followup of chronic osteomyelitis involving the right calcaneus. He is post partial calcanectomy roughly 5 weeks ago. This gentleman is doing fairly well per spouse. It is difficult to ascertain details due to his underlying neurological disease. Overall, apparently he has less pain. It is not clear if he has had any systemic illness. No fevers. Again, he has completed roughly 5 weeks of parenteral therapy with vancomycin. Review of the labs showed a decreasing sed rate. PHYSICAL EXAMINATION: On examination, the wound appears to be a diminishing in dimension. There is moderate degree of slough that was present. Dr. Barahona removed it in an excisional fashion. He noted there was some persistent exposed bone. ASSESSMENT AND PLAN: Chronic osteomyelitis involving the calcaneus post partial calcanectomy. We will continue the vancomycin at least an additional week. We will see him on a weekly basis and reevaluate. Continue weekly labs. Adjust dosing vancomycin as required. <ELECTRONICALLY SIGNED> By: Travis Copeland MD 09/13/17 1230 0807 [id number] Copeland MD /nt
== END ==
LOC: M.WC 04:41
DX: L89.614 Pressure ulcer of right heel, stage 4 (principal); M86.071 Acute hematogenous osteomyelitis, right ankle and foot; I10 Essential (primary) hypertension; Z85.3 Personal history of malignant neoplasm of breast; Z87.820 Personal history of traumatic brain injury

== ENCOUNTER → 2017-09-26 | Outpatient (CLI) | payer BC ==
--- NOTE | 2017-09-27 13:07 | CON ---
[address] [address] CONSULTATION Name: GIANCARLODENIS Salomon Room: [facility].#: [id number] Admission: 09/26/17 Attend Phys: Jhonny Barahona DPM Discharge: Date of : 41 Report #: [id number] THIS REPORT FOR: //name// CC: Jhonny Arevalo DATE OF SERVICE: 09/26/2017 ATTENDING PHYSICIAN: Jhonny Barahona DPM HISTORY OF PRESENT ILLNESS: He is seen in the wound care center for followup chronic osteomyelitis involving his right calcaneus. He is post partial osteoectomy, completed roughly 6 weeks of parenteral therapy, isolation of oxacillin-resistant Staphylococcus aureus. Currently, he has been doing fairly well. The appearance of the wound suggests increased granulation tissue. Wound was probed, palpated, did not seem to be exposed bone at this point. Overall degree of inflammation is diminished. Osteomyelitis at this point, we plan to discontinue the parenteral therapy, although I think is reasonable, so I give him some linezolid for at least additional couple of weeks. Wound care per Dr. Barahona. We see him in 2 weeks as well. Discussed with the patient's spouse. <ELECTRONICALLY SIGNED> By: Travis Copeland MD 09/27/17 1307 0731 [id number] Copeland MD /kaden
== END ==
LOC: M.WC 04:48
DX: L89.614 Pressure ulcer of right heel, stage 4 (principal); M86.071 Acute hematogenous osteomyelitis, right ankle and foot; I10 Essential (primary) hypertension; Z87.820 Personal history of traumatic brain injury; Z85.51 Personal history of malignant neoplasm of bladder

== ENCOUNTER → 2017-10-10 | Outpatient (CLI) | payer BC ==
--- NOTE | 2017-10-12 07:49 | CON ---
[address] [address] CONSULTATION Name: DENIS MONDRAGON Room: [facility].#: [id number] Admission: 10/10/17 Attend Phys: Jhonny Barahona DPM Discharge: Date of : 41 Report #: [id number] THIS REPORT FOR: //name// CC: Jhonny Arevalo DATE OF SERVICE: 10/10/2017 ATTENDING PHYSICIAN: Dr. Jhonny Barahona. HISTORY OF PRESENT ILLNESS: He is here for chronic wound involving the posterior aspect of his right foot involving the previous partial calcanectomy for chronic osteomyelitis. He has been undergoing long-term wound care. Additionally, he has been on combination of parenteral then enteral antibiotics. On evaluation per Dr. Barahona, the wound has significantly improved. There is no exposed bone at this point. He did undergo debridement. Per spouse, he is not having significant systemic illness. Generally, he has been eating satisfactorily. ASSESSMENT AND PLAN: Deep wound with chronic osteomyelitis. At this point, I think we can discontinue the antibiotics and observe. Continue offloading is the trejo, optimizing nutritional status. Wound care per Dr. Barahona. I will see as needed. <ELECTRONICALLY SIGNED> By: Travis Copeland MD 10/12/17 0749 0834 [id number] Copeland MD /nt
== END ==
LOC: M.WC 04:10
DX: L89.614 Pressure ulcer of right heel, stage 4 (principal); S91.101D Unspecified open wound of right great toe without damage to nail, subsequent encounter; S91.204D Unspecified open wound of right lesser toe(s) with damage to nail, subsequent encounter; S91.105D Unspecified open wound of left lesser toe(s) without damage to nail, subsequent encounter; M86.071 Acute hematogenous osteomyelitis, right ankle and foot; I10 Essential (primary) hypertension; Z87.820 Personal history of traumatic brain injury; Z85.51 Personal history of malignant neoplasm of bladder; X58.XXXD Exposure to other specified factors, subsequent encounter

== ENCOUNTER → 2017-10-24 | Outpatient (CLI) | payer BC | LOC: M.WC 01:36 | DX: L89.614 Pressure ulcer of right heel, stage 4 (principal); S91.101D Unspecified open wound of right great toe without damage to nail, subsequent encounter; S91.204D Unspecified open wound of right lesser toe(s) with damage to nail, subsequent encounter; S91.105D Unspecified open wound of left lesser toe(s) without damage to nail, subsequent encounter; M86.071 Acute hematogenous osteomyelitis, right ankle and foot; I10 Essential (primary) hypertension; Z85.51 Personal history of malignant neoplasm of bladder; Z87.820 Personal history of traumatic brain injury; Z89.421 Acquired absence of other right toe(s) ==

== ENCOUNTER → 2017-10-31 | Outpatient (CLI) | payer BC | LOC: M.WC 04:36 | DX: L89.614 Pressure ulcer of right heel, stage 4 (principal); S91.101D Unspecified open wound of right great toe without damage to nail, subsequent encounter; S91.105D Unspecified open wound of left lesser toe(s) without damage to nail, subsequent encounter; S91.204D Unspecified open wound of right lesser toe(s) with damage to nail, subsequent encounter; M86.071 Acute hematogenous osteomyelitis, right ankle and foot; I10 Essential (primary) hypertension; F41.9 Anxiety disorder, unspecified; F32.9 Major depressive disorder, single episode, unspecified; Z85.51 Personal history of malignant neoplasm of bladder; Z87.820 Personal history of traumatic brain injury; X58.XXXD Exposure to other specified factors, subsequent encounter ==

== ENCOUNTER → 2017-11-14 | Outpatient (CLI) | payer BC, OTHER | LOC: M.WC 03:05 | DX: L89.614 Pressure ulcer of right heel, stage 4 (principal); M86.071 Acute hematogenous osteomyelitis, right ankle and foot; I10 Essential (primary) hypertension; Z85.51 Personal history of malignant neoplasm of bladder; Z87.820 Personal history of traumatic brain injury ==

== ENCOUNTER → 2017-11-21 | Outpatient (CLI) | payer BC | LOC: M.WC 05:19 | DX: T86.828 Other complications of skin graft (allograft) (autograft) (principal); L89.614 Pressure ulcer of right heel, stage 4; M86.071 Acute hematogenous osteomyelitis, right ankle and foot; I10 Essential (primary) hypertension; Z87.820 Personal history of traumatic brain injury; Z85.51 Personal history of malignant neoplasm of bladder; Z89.422 Acquired absence of other left toe(s); Y83.2 Surgical operation with anastomosis, bypass or graft as the cause of abnormal reaction of the patient, or of later complication, without mention of misadventure at the time of the procedure ==

== ENCOUNTER → 2017-11-28 | Outpatient (CLI) | payer BC | LOC: M.WC 04:30 | DX: T86.828 Other complications of skin graft (allograft) (autograft) (principal); L89.614 Pressure ulcer of right heel, stage 4; I10 Essential (primary) hypertension; M86.071 Acute hematogenous osteomyelitis, right ankle and foot; Z85.51 Personal history of malignant neoplasm of bladder; Z87.820 Personal history of traumatic brain injury; Z89.422 Acquired absence of other left toe(s); Y83.2 Surgical operation with anastomosis, bypass or graft as the cause of abnormal reaction of the patient, or of later complication, without mention of misadventure at the time of the procedure ==

== ENCOUNTER → 2017-12-05 | Outpatient (CLI) | payer BC | LOC: M.WC 03:59 | DX: T86.828 Other complications of skin graft (allograft) (autograft) (principal); L89.614 Pressure ulcer of right heel, stage 4; I10 Essential (primary) hypertension; M86.071 Acute hematogenous osteomyelitis, right ankle and foot; Z85.51 Personal history of malignant neoplasm of bladder; Z87.820 Personal history of traumatic brain injury; Z89.422 Acquired absence of other left toe(s); Y83.2 Surgical operation with anastomosis, bypass or graft as the cause of abnormal reaction of the patient, or of later complication, without mention of misadventure at the time of the procedure ==

== ENCOUNTER → 2017-12-12 | Outpatient (CLI) | payer BC | LOC: M.WC 01:56 | DX: T86.828 Other complications of skin graft (allograft) (autograft) (principal); L89.614 Pressure ulcer of right heel, stage 4; M86.071 Acute hematogenous osteomyelitis, right ankle and foot; I10 Essential (primary) hypertension; Z87.820 Personal history of traumatic brain injury; Z85.51 Personal history of malignant neoplasm of bladder; Y83.5 Amputation of limb(s) as the cause of abnormal reaction of the patient, or of later complication, without mention of misadventure at the time of the procedure ==

== ENCOUNTER → 2017-12-19 | Outpatient (CLI) | payer BC | LOC: M.WC 05:42 | DX: T86.828 Other complications of skin graft (allograft) (autograft) (principal); L89.614 Pressure ulcer of right heel, stage 4; I10 Essential (primary) hypertension; Z87.820 Personal history of traumatic brain injury; Z85.51 Personal history of malignant neoplasm of bladder; Y83.2 Surgical operation with anastomosis, bypass or graft as the cause of abnormal reaction of the patient, or of later complication, without mention of misadventure at the time of the procedure ==

== ENCOUNTER → 2017-12-26 | Outpatient (CLI) | payer BC | LOC: M.WC 04:28 | DX: T86.828 Other complications of skin graft (allograft) (autograft) (principal); L89.614 Pressure ulcer of right heel, stage 4; I10 Essential (primary) hypertension; M86.071 Acute hematogenous osteomyelitis, right ankle and foot; Z89.421 Acquired absence of other right toe(s); Z85.51 Personal history of malignant neoplasm of bladder; Z87.820 Personal history of traumatic brain injury; Y83.2 Surgical operation with anastomosis, bypass or graft as the cause of abnormal reaction of the patient, or of later complication, without mention of misadventure at the time of the procedure ==

== ENCOUNTER → 2018-01-15 | Outpatient (CLI) | payer BC | LOC: M.WC 01-09 03:11 | DX: L89.614 Pressure ulcer of right heel, stage 4 (principal); M86.071 Acute hematogenous osteomyelitis, right ankle and foot; I10 Essential (primary) hypertension; Z87.820 Personal history of traumatic brain injury; Z85.51 Personal history of malignant neoplasm of bladder ==

== ENCOUNTER → 2018-01-23 | Outpatient (CLI) | payer BC | LOC: M.WC 05:05 | DX: L89.614 Pressure ulcer of right heel, stage 4 (principal); M86.071 Acute hematogenous osteomyelitis, right ankle and foot; I10 Essential (primary) hypertension; Z87.820 Personal history of traumatic brain injury; Z85.51 Personal history of malignant neoplasm of bladder; Z89.422 Acquired absence of other left toe(s); Z89.421 Acquired absence of other right toe(s) ==

== ENCOUNTER 2018-08-07 23:39 | Inpatient (IN) | payer BC ==
[~2018-08-07] VITALS: Ht 177.8 cm; Wt 90.4 kg
[2018-08-07 23:39] VITALS: BP 168/63
[2018-08-08 00:18] LABS: URINE BILIRUBIN NEGATIVE (Negative); URINE BLOOD TRACE (Negative); URINE CLARITY CLEAR; URINE COLOR YELLOW; URINE GLUCOSE-RANDOM NEGATIVE (Negative); URINE KETONES NEGATIVE (Negative); URINE PROTEIN TRACE (Negative); URINE UROBILINOGEN 0.2 E.U./dl (0.2-1.0)
[2018-08-08 00:24] VITALS: BP 149/74
[2018-08-08 00:24] LABS: BE 0.6 mmol/L (-2 to +3); PCO2 45.2 mmHg (35.0-45.0); PO2 72.5 mmHg (75.0-100.0)
[2018-08-08] MEDS ORDERED: SYNTHROID50 MCG PO (00:24)
[2018-08-08 00:27] LABS: URINE LEUKOCYTES-REFLEX 3+ (Negative); URINE NITRITE-REFLEX POSITIVE (Negative)
[2018-08-08 00:29] LABS: ABSOLUTE BASOPHILS 0.2 thou/uL (0.0-0.2); ABSOLUTE EOSINOPHILS 0.6 thou/uL (0.0-0.7); ABSOLUTE LYMPHOCYTES 2.5 thou/uL (0.8-5.3); ABSOLUTE MONOCYTES 1.4 thou/uL (0.0-1.2); ABSOLUTE NEUTROPHILS 11.1 thou/uL (1.6-8.1); BASOPHILS 1.1 %; EOSINOPHILS 3.9 %; HEMATOCRIT 44.9 % (42.0-52.0); HEMOGLOBIN 14.8 gm/dL (14.0-18.0); LYMPHOCYTES 15.8 %; MCH 29.6 pg (26.0-34.0); MCHC 32.8 g/dL (28.0-37.0); MCV 90.2 fL (80.0-100.0); MONOCYTES 8.6 %; MPV 8.7 fl. (7.2-11.1); NUCLEATED RBCS 0 /100WBC; PLATELET COUNT* 283 thou/uL (150-400); POLYS 70.6 %; RBC 4.98 mil/uL (4.50-6.00); RDW-CV 13.9 % (10.5-14.5); WBC 15.8 thou/uL (4.0-11.0)
[2018-08-08 00:30] LABS: BACTERIA-REFLEX >30 Many /HPF (None Seen); CASTS None Seen /LPF (None Seen); CRYSTALS None Seen /LPF (None Seen); SQUAMOUS 4-10 Moderate /LPF (0-3); URINE RBC 3-10 Few /HPF (0-2); URINE WBC-REFLEX >25 Many /HPF (0-5)
--- NOTE | 2018-08-08 00:30 | NUR ---
PATIENTS SO AND DPOA ARRIVED EDEN RODRIGUEZ [phone]
[2018-08-08 00:33] LABS: CALCIUM 9.4 mg/dL (8.5-10.1); CREATININE 1.1 mg/dL (0.6-1.3)
[2018-08-08 00:37] LABS: TOTAL BILIRUBIN 0.3 mg/dL (<0.1-1.0); TOTAL PROTEIN 7.1 g/dL (6.4-8.2)
[2018-08-08 00:50] VITALS: BP 109/52; BP 149/74
[2018-08-08 02:21] VITALS: BP 163/59
--- NOTE | 2018-08-08 06:18 | NUR ---
PT ARRIVED ON UNIT FROM ER ASSISTED TO ROOM ORIENTED TO SURROUNDINGS VS AND ASSESSMENT STABLE. PT NON VERBAL TURNED Q2H. WILL CONTINUE PLAN OF CARE
[2018-08-08 07:30] VITALS: BP 137/65
--- NOTE | 2018-08-08 14:03 | NUR ---
LABORER STORES SPOKE TO THE PATIENT AND HIS SPOUSE TO DISCUSS THE PATIENT'S HOME SITUATION, DISCHARGE PLANNING, AND TO INFORM OF THE ROLE OF CM. PATIENT ALERT, AND NON-VERBAL. PATIENT'S SPOUSE ANSWERING ALL QUESTIONS DURING THE ASSESSMENT. PATIENT RESIDES AT HOME WITH SPOUSE AND SHE IS THE PATIENT'S PRIMARY CAREGIVER. PATIENT OWNS POWER WHEELCHAIR, STAND LIFT, HOSPITAL BED, LOW AIR-LOSS MATTRESS. PATIENT'S SPOUSE ALSO INFORMS THAT SHE RECENTLY ORDERED THE PATIENT A NEW [facility] BED. PATIENT CURRENTLY ON-SERVICE WITH [facility] FOR NURSING FOR CATH CARE AND CHANGES, AND ALSO HAS A BATHAIDE 2X/WK. PLANS IS FOR THE PATIENT TO RETURN HOME AT D/C AND PATIENT'S SPOUSE WILL PROVIDE TRANSPORTATION. CM WILL REMAIN AVAILABLE TO ASSIST AND FOLLOW NEEDED.
[2018-08-08 16:00] VITALS: BP 106/59; BP 113/73
--- NOTE | 2018-08-08 17:03 | NUR ---
PATIENT HAS BEEN ALERT PART OF THE DAY SLEEPING THE REST OF IT. FAMILY HAS BEEN AT BEDSIDE MOST OF THE DAY. SPOUSE HELPED FEED HIM LUNCH, TOLERATED OKAY. NO COMPLAINTS OF ANY KIND TODAY. PATIENT VERY HARD TO UNDERSTAND BUT CAN FIGURE OUT NEEDS WITH TIME. NOLASCO AND COLOSTOMY IN PLACE DRAINING WELL. CALL LIGHT IS IN REACH, FREQUENT CHECKS, BED ALARM ON, WILL CONTINUE TO MONITOR.
[2018-08-08 22:15] VITALS: BP 144/62
--- NOTE | 2018-08-09 05:58 | NUR ---
PATIENT SLEPT WELL THROUGHOUT THE NIGHT. VSS ON 2L 02 VIA NASAL CANNULA. NOLASCO TO DEPENDENT DRAINAGE. COLOSTOMY IN PLACE. PATIENT REPOSITIONED EVERY 2HRS AND PRN. PATIENT TAKES MEDICATIONS CRUSHED WITH PUDDING. IV IN LEFT HAND-NS @ 100ML/HR. FALL PRECAUTIONS IN PLACE AND HOURLY ROUNDS MADE. WILL CONTINUE WITH PLAN OF CARE AND NURSING TO MONITOR.
[2018-08-09 07:30] VITALS: BP 126/64
--- NOTE | 2018-08-09 15:07 | NUR ---
QA REVIEWER SPOKE TO THE PATIENT'S SPOUSE TO DISCUSS DISCHARGE PLANNING NEEDS. PATIENT'S SPOUSE INFORMS THAT THE PLAN IS FOR THE PATIENT TO RETURN HOME WITH HER AND SHE WILL CONTINUING PROVIDING ALL CARES AT D/C. PATIENT'S SPOUSE ALSO INFORMS THAT SHE WILL PROVIDE TRANSPORTATION HOME, SHE OWNS A WHEELCHAIR ACCEPSSIBLE VAN. CM WILL REMAIN AVAILABLE TO ASSIST AND FOLLOW NEEDED.
[2018-08-09 16:30] VITALS: BP 150/78
--- NOTE | 2018-08-09 17:40 | NUR ---
PATIENT HAS BEEN ALERT AND AWAKE MOST OF THE DAY. VITAL SIGNS STABLE ON 2 LITERS OF OXYGEN THROUGH NASAL CANNULA. NO COMPLAINTS OF ANY KIND TODAY. APPETITE IS GOOD NOLASCO HAS GOOD OUT PUT WELL COLOSTOMY. BED ALARM IS ON, CALL LIGHT IS IN REACH, WILL CONTINUE TO [place].
[2018-08-09 21:50] VITALS: BP 124/52
--- NOTE | 2018-08-10 04:59 | NUR ---
PT SLEPT THROUGHT THE NIGHT. VITALS STABLE WITH 2L O2 BY NC. MEDS GIVEN ORDERED. NEW COLOSTOMY BAG GIVEN AND CHANGED BY . NOLASCO IN PLACE. HOURLY ROUNDING, Q2 TURN COMPLETED. WILL CONTINUE TO MONITOR.
[2018-08-10 07:30] VITALS: BP 150/65
--- NOTE | 2018-08-10 14:34 | NUR ---
AT 1410, ENTERED ROOM WITH Raul MAGANA. PT. SPOUSE IN ROOM. DISCUSSED OT SERVICES WITH PT. SPOUSE WHO STATES SHE DOES NOT WANT SERVICES FOR PT. AT THIS TIME. SHE HAS BEEN HIS CAREGIVER FOR OVER 3 YEARS AND HAS SERVICES SET UP FOR HIM AT HOME. SHE STATES THAT SHE DOES NOT WANT OT SERVICES FOR PT.
--- NOTE | 2018-08-10 14:34 | NUR ---
SPENT FROM 1410 TO 1431 WITH O.T. AND SPOUSE DISCUSSING PT'S PLOF. PT HAD TBI IN 2015. HE IS DEPENDENT CARE IN HOME SETTING WITH SPOUSE PRIMARY CAREGIVER. SPOUSE REPORTS PT HAS HOSPITAL BED WITH LOW AIR-LOSS MATTRESS AT HOME. SHE HELPS HIM OOB TWICE A WEEK VIA MECHANICAL LIFT. HE HAS A POWER W/C WHICH WITH CONTROLS ON THE BACK SO SPOUSE CAN CONTROL. W/C ACCESSIBLE VAN. PT RECEIVES BATH AIDE 2X WEEK FOR SPONGE BATHING. HE RECEIVES HOME HEALTH TWICE A MONTH TO CHANGE CATHETER. SPOUSE ASSISTS PT WITH FEEDING AND COLOSTOMY. SPOUSE DECLINES ANY FURTHER QUESTIONS OR NEEDS FROM P.T./O.T. SERVICES AT THIS TIME PT IS DEPENDENT LEVEL AT HOME. IF PT REMAINS IN HOSPITAL, RECOMMEND LOW AIR-LOSS MATTRESS TO ASSIST WITH PREVENTION OF PRESSURE ULCERS. NO FURTHER RECOMMENDATIONS OR P.T. NEEDS IDENTIFIED AT THIS TIME.
[2018-08-10 16:30] VITALS: BP 141/62
--- NOTE | 2018-08-10 18:47 | NUR ---
PATIENT COOPERATIVE W/ ASSESS AND CARES THIS SHIFT. BEDREST. TURNS Q2HRS W/ X2 ASST. CURRENTLY TO RT SIDE W/ HEELS FLOATING OVER PILLOW, HOB ELEVATED APPROX 30 DEGREES, O2 99% RA AT THIS TIME. IN TO SEE PATIENT THIS AFTERNOON, STATES SHE ASST W/ SHAVING PATIENT AND GIVING HIM SNACKS. . EDUCATED ON POC. NOLASCO CATH NOTED PATENT THRU SHIFT, CLEAR YELLOW URINE NOTED. CATH SITE NOTED WNL, MARIO CARES DONE, W/ BARRIER OINTMENT APPLIED. IV SITE NOTED WNL. SKIN INTACT. NOTED MARIO AREA BLANCHABLE. COLOSTOMY INTACT W/ SOFT BROWN STOOL NOTED IN BAG. PATIENT RESPONDS W/ YES/NO ANSWERS. SLOW TO RESPOND. ORAL CARES DONE. PATIENT ASST W/ MEALS PER COFFEE ATTENDANT. ~TJRN
[2018-08-10 20:00] VITALS: BP 140/84
[2018-08-11 04:03] LABS: HEMATOCRIT 40.4 % (42.0-52.0); HEMOGLOBIN 13.6 gm/dL (14.0-18.0); MCH 29.8 pg (26.0-34.0); MCHC 33.8 g/dL (28.0-37.0); MCV 88.2 fL (80.0-100.0); MPV 8.6 fl. (7.2-11.1); RBC 4.58 mil/uL (4.50-6.00); RDW-CV 13.9 % (10.5-14.5)
[2018-08-11 04:16] LABS: CALCIUM 9.1 mg/dL (8.5-10.1); CREATININE 0.8 mg/dL (0.6-1.3); POTASSIUM 3.6 mmol/L (3.5-5.1)
--- NOTE | 2018-08-11 06:29 | NUR ---
Oriented x 1 and nonverbal. Vitals were stable. He has been turned every 2 hours as allowed. He is taking his oral meds crushed in applesauce. He had good urine output and output per colostomy. He has not showed any discomfort this shift. He has slept well.
[2018-08-11 09:30] VITALS: BP 107/44
[2018-08-11 16:30] VITALS: BP 130/68
--- NOTE | 2018-08-11 18:26 | NUR ---
PRESENT IN ROOM CURRENTLY. STATES THAT PATIENT IS DNR, ORDER REC'D AND BRACELET PLACED. PATIENT BEDREST. PATIENT COOPERATIVE AND CALM THIS SHIFT, Q2 TURNS W/ X2 ASST. IV CATH SITE NOTED WNL. O2 RA, NO RESP DISTRESS NOTED. +COUGH THIS AM, NO PROD. NOLASCO CATH PATENT, MARIO CARES DONE. SKIN NOTED INTACT. COLOSTOMY SITE NOTED WNL, SOFT BROWN STOOL NOTED IN BAG. HEELS FLOATED OFF PILLOW. HOB UP SEMI FOWLERS. CORN CUTTER OPERATOR ASST W/ MEALS. PATIENT RESPONDING W/ YES/NO. STATES PATIENT UNAWARE OF WHO SHE IS AT THIS TIME. NO OTHER NURSING NEEDS AT THIS TIME. ~TJRN
--- NOTE | 2018-08-11 18:36 | NUR ---
LY ROUNDS COMPLETED. ~JOSHUARTiburcio
[2018-08-11 20:00] VITALS: BP 142/68
--- NOTE | 2018-08-12 06:53 | NUR ---
Oriented x 1 and drowsy. He is nonverbal and nonambulatory. He has turned every 2 hours. He is cooperative. He taked oral meds crushed in applesauce. Vitals are stable. He has slept well.
[2018-08-12 07:40] VITALS: BP 133/72
[2018-08-12] MEDS ORDERED: LEVAQUIN 750 M750 MG PO (11:17)
[2018-08-12] MEDS ORDERED: HOME MEDICATION PO (11:17)
[2018-08-12 12:23] VITALS: BP 133/72
--- NOTE | 2018-08-12 12:24 | NUR ---
Pt to dc home with today and resumption of HH follow up services. [facility] faxed referral info and dc orders/summary/med list to pt current HH agency, [facility] [phone] fax [phone].
--- NOTE | 2018-08-12 16:57 | NUR ---
PT REMAINED ALERT AND ORIENTED. PT RESTING IN ROOM. FALL RISK PRECAUTIONS IN PLACE. HOURLY ROUNDING COMPLETED. WILL CONTINUE TO MONITOR.
[2018-08-12 19:50] VITALS: BP 140/66
--- NOTE | 2018-08-13 05:16 | NUR ---
PT SLEPT MOST OF SHIFT. ASSESSMENT DOCUMENTED. MEDS GIVEN PER E-MAY. IV PATENT. NO APPARENT PAIN. PT ATE SEVERAL SNACKS THROUGH THE NIGHT. COLOSTOMY AND NOLASCO IN PLACE. PT REPOSITIONED THROUGH NIGHT. WILL CONTINUE WITH PLAN OF CARE.
[2018-08-13 07:30] VITALS: BP 155/68
--- NOTE | 2018-08-13 11:57 | NUR ---
WOUND CARE NOTE: CONSULT FOR HEEL WOUNDS PTS NURSE STATES PT IS NON VERBAL, ALSO HE HAS NO CURRENT WOUNDS THAT SHE IS AWARE OF. PT HAS OLD HEALED WOUND FROM SURGERY TO RIGHT HEEL. THERE IS A SCAR PRESENT WHERE THE HEEL APPEARS TO HAVE BEEN REMOVED. THE SKIN IS DRY AND APPROPRIATE. THE LEFT HEEL IS BOGGY AND BLANCHES. THE PTS FEET ARE OFFLOADED OFF THE BED WITH PILLOWS. PTS BOTTOM ASSESED, THERE IS AN AREA ON THE COCCYX OF HEALED SKIN. NO NEW ULCERS PRESENT. PT IS TURNED TO THE RIGHT AND NURSE REPORTS BARRIOR CREAM HAS BEEN IN USE. NO NEW ORDERS AT THIS TIME. RECCOMED: TURN Q2 HRS BARRIOR CREAM OFFLOAD HEELS FROM BED AT ALL TIMES PLEASE CALL WOUND CARE IF THERE ARE ANY NEW CONCERNS
--- NOTE | 2018-08-13 15:52 | NUR ---
SW called and spoke with pt about dc planning as pt did not dc yesterday after all and pt anticipates pt to ready to dc home tomorrow. Pt was concerned about infection fully clearing and pt said that pt seems to be much improving and pt expressed thankfulness that pt infection clearing again but was concerned by pt cognition on Sunday. Pt said she hopes that tonight when she visits pt that pt will be more ready to dc tomorrow. SW asked if pt felt she needed anymore resources or care at home; pt expressed support in place at home and again wants to resume HH services through [facility]. SW to continue to follow to assist with finalizing safe dc plan.
[2018-08-13 16:30] VITALS: BP 104/69
[2018-08-13 16:31] LABS: URINE BILIRUBIN NEGATIVE (Negative); URINE BLOOD 1+ (Negative); URINE CLARITY CLEAR; URINE COLOR YELLOW; URINE GLUCOSE-RANDOM NEGATIVE (Negative); URINE KETONES NEGATIVE (Negative); URINE LEUKOCYTES-REFLEX 1+ (Negative); URINE PROTEIN NEGATIVE (Negative); URINE SPECIFIC GRAVITY 1.025 (1.005-1.030); URINE UROBILINOGEN 0.2 E.U./dl (0.2-1.0)
[2018-08-13 16:32] LABS: URINE NITRITE-REFLEX POSITIVE (Negative)
[2018-08-13 16:38] LABS: CASTS None Seen /LPF (None Seen); CRYSTALS None Seen /LPF (None Seen); SQUAMOUS NONE SEEN /LPF (0-3); URINE RBC 0-2 Rare /HPF (0-2); URINE WBC-REFLEX 6-15 Few /HPF (0-5)
--- NOTE | 2018-08-13 17:07 | NUR ---
PT ALERT. PT RESTING IN ROOM. PT DID NOT SHOW ANY SIGNS OF DISTRESS THIS SHIFT. Q2 TURNS. FALL RISK PRECAUTIONS IN PLACE. HOURLY ROUNDING COMPLETED.WILL CONTINUE TO MONITOR.
[2018-08-13 22:08] VITALS: BP 109/65
--- NOTE | 2018-08-14 03:22 | NUR ---
ASSUMED CARE AT START OF SHIFT AT BEDSIDE PT ANSWER WITH ONE WORD RESPONSES,PO MEDICATION TAKEN WITH APPLESAUCES AND TOLERATED WELL. PT TURNED EVERY 2 HOURS , RESTED WELL THROUGHOUT HOURLY ROUNDS WILL CONINTUE WITH CURRENT PLAN OF CARE AND WILL REPORT CHANGES OR ABNORMAL FINDINGS.
[2018-08-14 07:20] VITALS: BP 159/80
[2018-08-14 16:08] VITALS: BP 125/53; BP 142/66
--- NOTE | 2018-08-14 16:59 | NUR ---
PT REMAINED ALERT AND ORIENTED. PT RESTING IN BED. NO APPARENT PAIN. ISOLATION REMOVED DUE TO NO MRSA ACTIVE OR VRE IN THE URINE. FALL RISK PRECAUTIONS IN PLACE. Q2 TURNS. PT FED MEALS. HOURLY ROUNDING COMPLETED.WILL CONTINUE TO MONITOR.
[2018-08-15] VITALS: BP 141/77
--- NOTE | 2018-08-15 05:19 | NUR ---
PT SLEPT WELL OVERNIGHT. NOLASCO DRAINING YELLOW URINE. COLOSTOMY WITH MUSHY BROWN STOOL PRESENT. ALERT, AWAKE, NONVERBAL THIS SHIFT. L HAND IV SL, FLUSHES WELL. SCDS ON. PT TURNED AND REPOSITIONED Q2 HOURS AND PRN FOR SKIN CARE AND COMFORT. ROOM AIR. NO LABS THIS MORNING. DNR. ID CONSULT. TAKES PILLS CRUSHED WITH APPLESAUCE WITHOUT DIFFICULTY.
[2018-08-15 07:30] VITALS: BP 135/56
[2018-08-15 16:30] VITALS: BP 135/75
--- NOTE | 2018-08-15 17:34 | NUR ---
ASSUMED CARE OF ALINE AT APPROX 0730. ALERT BUT NON RESPONSIVE, PATIENTS EYES FOLLOW YOU BUT HE IS NON VERBAL. ASSESSMENT COMPLETED AND CHARTED. VSS ON ROOM AIR. NO APPARENT SIGNS OF PAIN OR DISCOMFOT. PATIENT TURNED EVERY TWO HOURS. STAFF ASSISTED IN FEEDING AT MEAL TIMES. ANTIBIOTICS INFUSED ORDERED. NOLASCO IN PLACE AND DRAINING DEPENDENTLY. SOFT BROWN STOOL OBSERVED IN COLOSTOMY. FALL PRECAUTIONS IN PLACE. CALL LIGHT IN REACH AND HOURLY ROUNDS COMPLETED. WILL CONTINUE TO MONITOR.
[2018-08-15 20:15] VITALS: BP 136/61
--- NOTE | 2018-08-16 05:01 | NUR ---
PT SLEPT WELL OVERNIGHT. ALERT AND AWAKE AT TIMES BUT NONVERBAL. TURNED AND REPOSITIONED Q2 HOURS AND PRN FOR SKIN CARE AND COMFORT. LHAND SLIV. PO ABX GIVEN ORDERED. TAKES MEDS CRUSHED WITH APPLESAUCE. SCDS ON. COLOSTOMY WITH BROWN MUSHY STOOL PRESENT. NOLASCO DRAINING YELLOW URINE. VSS. NO LABS THIS MORNING. POSSIBLE DISCHARGE HOME TODAY ON PO ABX, WITH SERVICES.
[2018-08-16 07:12] VITALS: BP 133/66
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
[2018-08-16] MEDS ORDERED: BACTRIM DS TAB1 EACH PO (10:45)
--- NOTE | 2018-08-16 12:54 | NUR ---
Nutrition: Pt admitted with fever. H/o heel ulcer. Nonverbal, feed assist. Regular diet. BG 126, albumin 3. Seen for LOS. Wt usually 200#; fluctuates 200-168#. Currently, 199#. No nutrition interventions needed at this time. Consider low nutrition risk.
--- NOTE | 2018-08-16 13:00 | NUR ---
SPOKE WITH . SHE SAID SHE HAD SPOKEN WITH . SHE WAS WORRIED STILL ABOUT HER . SHE SAID HE WILL USUALLY COMMUNICATE WITH HER BUT HE HAS BEEN NONVERBAL WITH HER ALSO, THE LAST SEVERAL DAYS. SHE SAID WAS GOING TO ORDER A CT OF THE HEAD. SHE IS PREPARED TO TAKE HIM HOME WHEN THE DRIvetteDISCHARGES HIM BUT WANTS TO MAKE SURE HE IS BACK TO BASELINE. CM DISCUSSED WITH THIS AM.
--- NOTE | 2018-08-16 15:47 | NUR ---
ASSESSMENT COMPLETE. PT ALERT AND ORIENTED TO SELF. NON VERBAL DURING THE DAY. EXPRESSED CONCERN WITH PATIENT BEING NON VERBAL WITH HER WELL, CT OF HEAD ORDERED PER REQUEST. PT TAKES MEDS CRUSHED WITH APPLESAUCE. FEED FOR MEALS. Q2 TURN. NOLASCO AND COLOSTOMY IN PLACE. PT IS ON ROOM AIR, VSS. PT PLACED IN ISOLATION FOR MRSA IN URINE. SPOUSE AT BEDSIDE WITH NO OTHER CONCERNS. SEE ASSESSMENT AND VITALS FOR OTHER DETAILS. CALL LIGHT WITHIN REACH, WILL CONTINUE PLAN OF CARE
[2018-08-16 16:01] VITALS: BP 145/70
[2018-08-16 20:00] VITALS: BP 132/53
[2018-08-17 04:26] LABS: HEMATOCRIT 41.3 % (42.0-52.0); HEMOGLOBIN 13.8 gm/dL (14.0-18.0); MCH 29.5 pg (26.0-34.0); MCHC 33.3 g/dL (28.0-37.0); MCV 88.4 fL (80.0-100.0); MPV 7.9 fl. (7.2-11.1); RBC 4.67 mil/uL (4.50-6.00); WBC 13.8 thou/uL (4.0-11.0)
[2018-08-17 04:38] LABS: CALCIUM 9.9 mg/dL (8.5-10.1); CREATININE 1.2 mg/dL (0.6-1.3); MAGNESIUM 1.9 mg/dL (1.8-2.4); POTASSIUM 4.3 mmol/L (3.5-5.1)
--- NOTE | 2018-08-17 05:37 | NUR ---
Oriented x 1-2. He is nonverbal. Vitals are stable skin is intact. He has been turned every 2 hours. Colostomy and ferrera are having adequate output. He takes oral meds crushed with applesauce. Labs today were mostly normal. He has slept well.
[2018-08-17 08:00] VITALS: BP 157/65
[2018-08-17 16:18] VITALS: BP 143/58
--- NOTE | 2018-08-17 18:36 | NUR ---
ASSUMED PT CARE AT 0700, PT ALERT TO VERBAL AND TACTILE STIMULI, NONVERBAL, UP WITH ASSIST X2 AND ERENDIRA, LISSETH, RA, LS CTA. NOLASCO PATENT AND DRAINING CLEAR, YELLOW URINE, COLOSTOMY BAG IN PLACE, NEW BAG PLACED THIS SHIFT D/T PT PULLING OLD BAG OFF. HOURLY ROUNDING AND Q 2 TURNS COMPLETED.
[2018-08-17 21:50] VITALS: BP 151/80
--- NOTE | 2018-08-18 04:26 | NUR ---
PT ORIENTED TIMES 2,3. NON-VERBAL. VITALS STABLE RA. MEDS CRUSHED AND GIVEN IN APPLE SAUCE. NO APPARENT PAIN. NOLASCO, COLOSTOMY BAG IN PLACE. STOMA ON LT ABD CLEAN AND INTACT. HOURLY ROUNDING, Q2 TURN COMPLETED. WILL CONTINUE TO MONITOR.
[2018-08-18 08:10] VITALS: BP 134/62
[2018-08-18 16:54] VITALS: BP 148/55
--- NOTE | 2018-08-18 17:32 | NUR ---
PATIENT RESTING IN BED. PATIENT IS NONVERBAL BUT ALERT AND COOPERATIVE. PATIENT HAS BEEN ASSISTED WITH MEALS AND REPOSITIONING. PATIENT DOES NOT APPEAR TO BE IN PAIN. PATIENT FAMILY AT BEDSIDE. CALL LIGHT WITHIN REACH. BED ALARM ON. WILL CONTINUE TO MONITOR.
[2018-08-18 19:45] VITALS: BP 139/51
--- NOTE | 2018-08-19 05:19 | NUR ---
PT SLEPT WELL OVERNIGHT. TURNED AND REPOSITIONED Q2 HOURS AND PRN FOR SKIN CARE AND COMFORT. NOLASCO DRAINING YELLOW URINE, COLOSTOMY WITH BROWN FORMED STOOL. SCDS ON. NO IV ACCESS. ROOM AIR. NO APPARENT PAIN. TAKES MEDS CRUSHED WITH APPLESAUCE WITHOUT DIFFICULTY. REMAINS ON CONTACT ISOLATION FOR +MRSA URINE. AM LABS. PLAN FOR DISCHARGE HOME TODAY WITH AND HH. CALL LITE IN EASY REACH, BED ALARM ON FOR SAFETY.
[2018-08-19 05:22] LABS: HEMATOCRIT 42.1 % (42.0-52.0); HEMOGLOBIN 13.9 gm/dL (14.0-18.0); MCH 29.4 pg (26.0-34.0); MCHC 33.1 g/dL (28.0-37.0); MPV 7.9 fl. (7.2-11.1); RBC 4.73 mil/uL (4.50-6.00); RDW-CV 13.8 % (10.5-14.5); WBC 12.2 thou/uL (4.0-11.0)
[2018-08-19 05:25] LABS: CALCIUM 9.4 mg/dL (8.5-10.1); CREATININE 1.3 mg/dL (0.6-1.3); MAGNESIUM 2.1 mg/dL (1.8-2.4); POTASSIUM 4.2 mmol/L (3.5-5.1)
[2018-08-19] MEDS ORDERED: BACTRIM DS TAB1 EACH PO (07:57)
[2018-08-19 08:00] VITALS: BP 148/60
[2018-08-19 08:43] VITALS: BP 133/72
--- NOTE | 2018-08-19 10:20 | NUR ---
AM ASSESSMENT AND VITAL SIGNS COMPLETED DOCUMENTED. PT LYING IN BED AWAKE AND ALERT, NO INDICATION OF DISCOMFORT. E LEARNING COORDINATOR GAVE HIM A BED BATH AND FED HIM BREAKFAST. AM MEDS WERE GIVEN CRUSHED AND MIXED WITH APPLESAUCE. PO BACTRIM GIVEN FOR UTI. FALL PRECAUTIONS, HOURLY ROUNDING AND Q2 HR TURNS CONTINUE.
[2018-08-19 10:44] VITALS: BP 133/72
--- NOTE | 2018-08-19 11:07 | NUR ---
MANUFACTURING TECHNOLOGIST INFORMED BY THE PHYSICIAN THAT THE PATIENT IS READY TO D/C TODAY, HOME WITH [facility] . D/C UNION REPRESENTATIVE SPOKE TO THE PATIENT'S SPOUSE AND SHE IS IN AGREEMENT WITH THE PLAN AND INFORMS THAT SHE WILL PROVIDE TRANSPORTATION HOME FOR THE PATIENT IN HER W/C ACCESSIBLE VAN. D/C UNION REPRESENTATIVE CALLED AND INFORMED [facility] DELCID OF THE PATIENT'S D/C AND FAXED THE PATIENT'S D/C ORDERS. CM WILL REMAIN AVAILABLE TO ASSIST AND FOLLOW NEEDED. [facility] DELC[facility] PHONE: [phone] FAX: [phone]
--- NOTE | 2018-08-19 16:19 | NUR ---
DISCHARGE INSTRUCTIONS AND BACTRIM PRESCRIPTION PROVIDED TO PT'S . PT TRANSFERRED FROM THE BED TO HIS WHEELCHAIR. STAFF ACCOMPANIED PT TO THE EXIT WHERE HIS LOADED HIM INTO HER WC VAN. DISCHARGED HOME IN STABLE CONDITION.
== END 2018-08-19 16:21 | disposition home health service (06) | DRG 91 ==
LOC: M.ERS 23:39 → M.TBA-ER 08-08 01:40 → M.ORTHSURG 08-08 01:40
PROVIDERS: Internal Medicine; Personal Emergency Response Attendant; ADMIT Internal Medicine
DX: G92 Toxic encephalopathy (principal); R65.11 Systemic inflammatory response syndrome (SIRS) of non-infectious origin with acute organ dysfunction; N39.0 Urinary tract infection, site not specified; M86.60 Other chronic osteomyelitis, unspecified site; I10 Essential (primary) hypertension; F03.90 Unspecified dementia, unspecified severity, without behavioral disturbance, psychotic disturbance, mood disturbance, and anxiety; E78.5 Hyperlipidemia, unspecified; E03.9 Hypothyroidism, unspecified; R13.10 Dysphagia, unspecified; B96.1 Klebsiella pneumoniae [K. pneumoniae] as the cause of diseases classified elsewhere; Z87.820 Personal history of traumatic brain injury; Z89.421 Acquired absence of other right toe(s); Z85.51 Personal history of malignant neoplasm of bladder; Z87.440 Personal history of urinary (tract) infections; Z79.899 Other long term (current) drug therapy; Z87.891 Personal history of nicotine dependence; Z82.49 Family history of ischemic heart disease and other diseases of the circulatory system; Z83.3 Family history of diabetes mellitus; Z83.6 Family history of other diseases of the respiratory system; Z93.3 Colostomy status; Z22.322 Carrier or suspected carrier of Methicillin resistant Staphylococcus aureus

== ENCOUNTER → 2019-03-11 | Outpatient (CLI) | payer BC ==
[~2019-03-11] MED LIST changes: +BACTRIM DS TAB1 EACH PO; +HOME MEDICATION PO; +LEVAQUIN 750 M750 MG PO; +SYNTHROID50 MCG PO
== END ==
LOC: M.WC 14:00
DX: L89.153 Pressure ulcer of sacral region, stage 3 (principal); I10 Essential (primary) hypertension; Z87.820 Personal history of traumatic brain injury; Z85.51 Personal history of malignant neoplasm of bladder

== ENCOUNTER → 2019-04-01 | Outpatient (CLI) | payer BC | LOC: M.WC 03:34 | DX: L89.153 Pressure ulcer of sacral region, stage 3 (principal); I10 Essential (primary) hypertension; Z85.51 Personal history of malignant neoplasm of bladder; Z87.820 Personal history of traumatic brain injury ==

== ENCOUNTER → 2019-04-29 | Outpatient (CLI) | payer BC | LOC: M.WC 03:55 | DX: L89.153 Pressure ulcer of sacral region, stage 3 (principal); I10 Essential (primary) hypertension; Z87.820 Personal history of traumatic brain injury; Z85.51 Personal history of malignant neoplasm of bladder ==

== ENCOUNTER 2019-05-16 12:06 | Inpatient (IN) | payer BC ==
[~2019-05-16] VITALS: Ht 170.2 cm; Wt 85.3 kg
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
[~2019-05-16 12:06] MED LIST changes: -NORVASC5 MG PO
[2019-05-16 12:56] LABS: URINE BILIRUBIN NEGATIVE (Negative); URINE BLOOD NEGATIVE (Negative); URINE CLARITY CLEAR; URINE COLOR YELLOW; URINE GLUCOSE-RANDOM NEGATIVE (Negative); URINE KETONES NEGATIVE (Negative); URINE LEUKOCYTES-REFLEX TRACE (Negative); URINE PROTEIN NEGATIVE (Negative); URINE SPECIFIC GRAVITY 1.015 (1.005-1.030); URINE UROBILINOGEN 0.2 E.U./dl (0.2-1.0)
[2019-05-16 12:57] LABS: URINE NITRITE-REFLEX POSITIVE (Negative)
[2019-05-16 13:05] LABS: CASTS None Seen /LPF (None Seen); SQUAMOUS 0-3 Few /LPF (0-3); URINE RBC None Seen /HPF (0-2); URINE WBC-REFLEX 6-15 Few /HPF (0-5); WBC CLUMPS Few (None Seen)
[2019-05-16 13:06] LABS: CRYSTALS None Seen /LPF (None Seen)
[2019-05-16 13:37] LABS: ABSOLUTE BASOPHILS 0.1 thou/uL (0.0-0.2); ABSOLUTE EOSINOPHILS 0.6 thou/uL (0.0-0.7); ABSOLUTE LYMPHOCYTES 2.2 thou/uL (0.8-5.3); ABSOLUTE NEUTROPHILS 8.8 thou/uL (1.6-8.1); BASOPHILS 1.1 %; EOSINOPHILS 4.5 %; HEMOGLOBIN 14.3 gm/dL (14.0-18.0); LYMPHOCYTES 17.4 %; MCH 30.4 pg (26.0-34.0); MCHC 33.9 g/dL (28.0-37.0); MCV 89.7 fL (80.0-100.0); MONOCYTES 8.2 %; MPV 9.1 fl. (7.2-11.1); NUCLEATED RBCS 0 /100WBC; PLATELET COUNT* 224 thou/uL (150-400); POLYS 68.8 %; RBC 4.69 mil/uL (4.50-6.00); RDW-CV 13.9 % (10.5-14.5); WBC 12.8 thou/uL (4.0-11.0)
[2019-05-16 13:47] LABS: CALCIUM 9.2 mg/dL (8.5-10.1); CREATININE 0.9 mg/dL (0.6-1.3); POTASSIUM 4.1 mmol/L (3.5-5.1)
[2019-05-16 13:48] LABS: APTT 23.6 Seconds (25.0-31.3)
[2019-05-16 13:58] LABS: ALBUMIN 3.4 g/dL (3.4-5.0); TOTAL BILIRUBIN 0.3 mg/dL (<0.1-1.0); TOTAL PROTEIN 7.6 g/dL (6.4-8.2)
--- NOTE | 2019-05-16 16:52 | EKG ---
[place] [address] ELECTROCARDIOGRAM REPORT Name: DENIS MONDRAGON Room: [place] [address] ADM IN M.R.#: [id number] Admission: 05/16/19 Attend Phys: Erica Kwan Discharge: Date of : 42 Date of Service: 05/16/19 1240 Report #: [id number] THIS REPORT FOR: //name// [facility] ED Test Date: 2019-05-16 Test Time: 12:40:09 Pat Name: DENIS MONDRAGON Department: Room: [facility] Gender: M Vmware Engineer: : 1940 Requested By: Franko Coleman Order Number: [id number] MD: Dc Ware Measurements Intervals [place] Rate: 73 P: -59 FL: 225 QRS: -17 QRSD: 91 T: 87 QT: 381 QTc: 420 Interpretive Statements Sinus rhythm Ventricular premature complex Prolonged FL interval Abnormal R-wave progression, early transition Inferior infarct, old Compared to ECG 08/09/2017 12:59:54 Ventricular premature complex(es) now present Electronically Signed On 05-16-2019 16:51:39 CDT by Dc Ware [email or web address] <ELECTRONICALLY SIGNED> By: Dc Ware MD, FACC 05/16/19 1651 1240 1240 Dc Ware MD, [facility] /EPI
[2019-05-16 17:42] VITALS: BP 144/65
[2019-05-16] MEDS ORDERED: AMANTADINE 100100 MG PO (18:07)
[2019-05-16] MEDS ORDERED: LOSARTAN POTAS100 MG PO (18:11)
[2019-05-16] MEDS ORDERED: MACROBID 100 M100 MG PO (18:59)
[2019-05-16 19:20] VITALS: BP 105/48
--- NOTE | 2019-05-16 19:43 | NUR ---
REPORT RECEIVED FROM KRISTIN MARTINEZ. PATIENT ARRIVED AT 1800. DR. DEAN COMPLETED WOUND CARE AT APPROXIMATELY 1900. WOUND PHOTO TAKEN. PATIENT AWAKE IN BED WITH AT BEDSIDE. ALL SAFETY MEASURES MAINTAINED.
--- NOTE | 2019-05-17 00:09 | NUR ---
PT SLEEPY DURING ADMISISON HX AND ASSESSMENT. OCCASSIONALLY AWAKE. NONVERBAL. WIE SAYS HE TAKLS TO HER SOMETIMES BUT DOES NOT TALK TO OTHER PEOPLE. PT AND ORIENTED TO ROOM AND CALL LIGHT. RPVIDEE ADM HX. PT ON FALL PRECAUTIONS. PT CURRENTLY SLEEPING. LEFT FOR HOME. WILL CONTINUE TO MONITOR.
--- NOTE | 2019-05-17 04:57 | NUR ---
PT SLEPT WELL THIS SHIFT. Q2 TURN. FALL PRECAUTIONS IN PLACE. MEDS GIVEN PER EMAR. PT HAD NON PRODUCTIVE COUGH. NOLASCO IN PLACE. ILLEOSTOMY IN PLACE. WILL CONTINUE TO MONITOR.
[2019-05-17 07:40] VITALS: BP 112/58
[2019-05-17 15:57] VITALS: BP 123/49
--- NOTE | 2019-05-17 17:29 | NUR ---
PT AWAKE AT TIME OF ASSESSMENT THIS AM. PT REMAINS NONVERBAL/BASELINE THIS SHIFT. PT IS BEDBOUND, Q2H TURNS FOR SKIN INTEGRITY. PT HAS INTERMITTENT NON-PRODUCTIVE COUGH. PT IS ADMITTED WITH CHRONIC URINARY CATHETER IN PLACE. CATHETER REMAINS PATENT, YELLO URINE VISIBLE IN COLLECTION BAG. PT HAS ILEOSTOMY UPON ADMISSION. IV TO R WRIST, PATENT, SALINE LOCKED. PT ASSISTED TO EAT AT MEALS AND SNACK TIMES. WOUND EXAMINED BY DR RIVERA THIS AFTERNOON. PT RESTS IN BED WITH SPOUSE AT BEDSIDE. CALL IGHT REMAINS IN REACH OF PT.
[2019-05-17 19:10] VITALS: BP 151/49
[2019-05-18 02:14] LABS: URINE BILIRUBIN NEGATIVE (Negative); URINE BLOOD TRACE (Negative); URINE CLARITY CLEAR; URINE COLOR YELLOW; URINE GLUCOSE-RANDOM NEGATIVE (Negative); URINE KETONES NEGATIVE (Negative); URINE LEUKOCYTES 1+ (Negative); URINE NITRITE POSITIVE (Negative); URINE PROTEIN NEGATIVE (Negative); URINE UROBILINOGEN 0.2 E.U./dl (0.2-1.0)
[2019-05-18 03:05] LABS: CASTS None Seen /LPF (None Seen); SQUAMOUS NONE SEEN /LPF (0-3)
[2019-05-18 03:06] LABS: CRYSTALS None Seen /LPF (None Seen); URINE RBC 0-2 Rare /HPF (0-2); URINE WBC >25 Many /HPF (0-5)
--- NOTE | 2019-05-18 05:56 | NUR ---
PT SLEPT WELL THIS SHIFT. ASSESSMENT DOCUMENTED. MEDS GIVEN PER EMAR. Q2 TURN. WAS AT BEDSIDE BEGINNING OF SHIFT. WOUND DRESSING TO SACRUM CHANGED. ILLEOSTOMY INTACT. FALL PRECAUTIONS IN PLACE. CALL LIGHT WITHIN REACH. WILL CONTINUE TO MONITOR.
[2019-05-18 07:30] VITALS: BP 128/50
--- NOTE | 2019-05-18 16:59 | NUR ---
Remains alert and nonverbal. Respirations remain even and unlabored on room air. No s/sx of pain or discomfort. Repositioned frequently PRN with wedge. Total assist with care. Chronic ferrera intact and draining. Dressing CDI to chronic sacral wound. Pics of sacral wound taken and placed in chart. Continues on IV atbx without s/sx of reaction. Bed alarm remains set on exiting mode for safety. Call solorzano within reach. Nsg will continue to assess.
[2019-05-18 19:50] VITALS: BP 123/55
--- NOTE | 2019-05-19 04:35 | NUR ---
PT AWAKE DURING ASSESSMENT. VSS ON RA. MEDS GIVEN PER EMAR. AT BEDTIME DURING ASSESSMENT. CODE STATUS CURRENTLY SAYS FULL CODE WHILE AD INTENT SAYS DNR. VERIFIED FROM THAT CODE STATUS IS DNR. PER (DPOA), HOSPITAL HAVE COPY. WILL PASS ON TO HAVE MR FAX COPY TO UNIT. PT SLEPT WELL THIS SHIFT. Q2 TURN, ISOLATION PRECAUTION IN PLACE. ILLEOSTOMY INTACT. HOURLY ROUNDINGS MADE. WILL CONTINUE TO MONITOR
[2019-05-19 08:00] VITALS: BP 137/67
[2019-05-19] MEDS ORDERED: CIPRO250 M2 PO (11:09)
--- NOTE | 2019-05-19 11:18 | NUR ---
Nutrition: Pt admitted with infected decub ulcer. Chronic stage IV on sacrum. Zinc sulfate ordered. RECOMMEND MVI USE WELL. Alb 3.4, BG 126. Wt: 188#. Regular diet. Increased nutrient needs R/T wound healing AEB chronic sacral ulcer. Recommend MVI, Brian is ordered. Mild risk.
[2019-05-19 11:43] VITALS: BP 123/55
[2019-05-19] MEDS ORDERED: NORVASC5 MG PO (11:58)
[2019-05-19 14:39] LABS: ABSOLUTE BASOPHILS 0.1 thou/uL (0.0-0.2); ABSOLUTE EOSINOPHILS 0.6 thou/uL (0.0-0.7); ABSOLUTE LYMPHOCYTES 2.5 thou/uL (0.8-5.3); ABSOLUTE NEUTROPHILS 7.6 thou/uL (1.6-8.1); EOSINOPHILS 4.8 %; HEMATOCRIT 38.3 % (42.0-52.0); HEMOGLOBIN 13.1 gm/dL (14.0-18.0); LYMPHOCYTES 21.2 %; MCH 30.5 pg (26.0-34.0); MCHC 34.3 g/dL (28.0-37.0); MONOCYTES 8.3 %; MPV 8.8 fl. (7.2-11.1); NUCLEATED RBCS 0 /100WBC; PLATELET COUNT* 225 thou/uL (150-400); POLYS 64.7 %; RDW-CV 13.8 % (10.5-14.5); WBC 11.8 thou/uL (4.0-11.0)
[2019-05-19 15:04] LABS: CALCIUM 8.5 mg/dL (8.5-10.1); POTASSIUM 3.9 mmol/L (3.5-5.1); TOTAL BILIRUBIN 0.3 mg/dL (<0.1-1.0); TOTAL PROTEIN 6.8 g/dL (6.4-8.2)
[2019-05-19 15:29] VITALS: BP 123/55
--- NOTE | 2019-05-19 15:41 | NUR ---
FAXED HOME HEALTH REFERRAL TO [facility]. CONFIRMED WITH RUSSELL/INTAKE THAT [facility] HAS BEEN THE HOME HEALTH SERVICE PATIENT HAS HAD FOR SEVERAL YEARS. SPOKE TO [facility]/ AND ANGIE/DAUGHTER THAT [facility] WILL CONTACT PATIENT TOMORROW, 05/20/19 TO SCHEDULE AND BEGIN SERVICES. [facility] [phone]
--- NOTE | 2019-05-19 15:41 | NUR ---
CM INFORMED BY THE PHYSICIAN THAT THE PATIENT IS READY TO D/C TODAY, AND INFORMS THAT 'IF THE PATIENT'S SIGNIFICANT OTHER ([facility]) WOULD LIKE TO DISCUSS HOPSICE THEN HE WOUDL BE AVAILABLE TO DISCUSS THIS'. PATIENT'S SIG O INFORMS THAT 'WE ARE NOT READY FOR HOSPICE AT THIS TIME. MY DAUGHTER IS A NURSE AND SHE ASSIST ME AT HOME WITH [facility] THE HH, AND HE HAS AN APPOINTMENT TOMORROW FOR WOUND CARE'. PATIENT TO D/C HOME TODAY WITH TRANSPORTATION PROVIDED BY [facility]. D/C PLANNNER TO SEND [facility] ORDERS TO RESUME HH. CM WILL REMAIN AVAILABLE TO ASSIST AND FOLLOW NEEDED.
[2019-05-19 16:40] VITALS: BP 123/55
--- NOTE | 2019-05-19 17:09 | NUR ---
1640 DISCHARGED HOME WITH HOME HEALTH ACCOMPANIED BY . DISCHARGE INSTRUCTIONS EXPLAINED AND GIVEN.
== END 2019-05-19 16:40 | disposition home health service (06) | DRG 698 ==
LOC: M.ERS 12:06 → M.TBA-ER 14:55 → M.3W 14:55
PROVIDERS: Family Medicine; ADMIT Internal Medicine
DX: T83.511A Infection and inflammatory reaction due to indwelling urethral catheter, initial encounter (principal); G82.50 Quadriplegia, unspecified; I21.A1 Myocardial infarction type 2; M46.28 Osteomyelitis of vertebra, sacral and sacrococcygeal region; G93.40 Encephalopathy, unspecified; Z16.39 Resistance to other specified antimicrobial drug; R65.10 Systemic inflammatory response syndrome (SIRS) of non-infectious origin without acute organ dysfunction; L89.159 Pressure ulcer of sacral region, unspecified stage; N30.90 Cystitis, unspecified without hematuria; L89.301 Pressure ulcer of unspecified buttock, stage 1; E03.9 Hypothyroidism, unspecified; I10 Essential (primary) hypertension; E78.5 Hyperlipidemia, unspecified; Y84.6 Urinary catheterization as the cause of abnormal reaction of the patient, or of later complication, without mention of misadventure at the time of the procedure; I73.9 Peripheral vascular disease, unspecified; X58.XXXS Exposure to other specified factors, sequela; Z86.73 Personal history of transient ischemic attack (TIA), and cerebral infarction without residual deficits; Z83.3 Family history of diabetes mellitus; Z82.49 Family history of ischemic heart disease and other diseases of the circulatory system; Z85.51 Personal history of malignant neoplasm of bladder; Z89.421 Acquired absence of other right toe(s); Z79.899 Other long term (current) drug therapy; Z93.3 Colostomy status; Z87.891 Personal history of nicotine dependence; Z74.01 Bed confinement status; Y92.89 Other specified places as the place of occurrence of the external cause; S06.890S Other specified intracranial injury without loss of consciousness, sequela

== ENCOUNTER → 2019-05-20 | Outpatient (CLI) | payer BC ==
[~2019-05-20] MED LIST changes: +AMANTADINE 100100 MG PO; +CIPRO250 M2 PO; +LOSARTAN POTAS100 MG PO; +MACROBID 100 M100 MG PO; +NORVASC5 MG PO
== END ==
LOC: M.WC 13:00
DX: L89.153 Pressure ulcer of sacral region, stage 3 (principal); I10 Essential (primary) hypertension; Z85.51 Personal history of malignant neoplasm of bladder; Z87.820 Personal history of traumatic brain injury

== ENCOUNTER → 2019-06-10 | Outpatient (CLI) | payer BC | LOC: M.WC 04:50 | DX: L89.153 Pressure ulcer of sacral region, stage 3 (principal); I10 Essential (primary) hypertension; Z87.820 Personal history of traumatic brain injury; Z85.51 Personal history of malignant neoplasm of bladder ==

== ENCOUNTER → 2019-06-24 | Outpatient (CLI) | payer BC | LOC: M.WC 04:24 | DX: L89.153 Pressure ulcer of sacral region, stage 3 (principal); I10 Essential (primary) hypertension; Z87.820 Personal history of traumatic brain injury; Z85.51 Personal history of malignant neoplasm of bladder ==

== ENCOUNTER → 2019-07-08 | Outpatient (CLI) | payer BC ==
[2019-07-08 13:38] LABS: ABSOLUTE BASOPHILS 0.1 thou/uL (0.0-0.2); ABSOLUTE EOSINOPHILS 0.7 thou/uL (0.0-0.7); ABSOLUTE LYMPHOCYTES 3.2 thou/uL (0.8-5.3); ABSOLUTE MONOCYTES 1.4 thou/uL (0.0-1.2); ABSOLUTE NEUTROPHILS 7.4 thou/uL (1.6-8.1); BASOPHILS 1.1 %; EOSINOPHILS 5.4 %; HEMATOCRIT 45.4 % (42.0-52.0); HEMOGLOBIN 15.2 gm/dL (14.0-18.0); LYMPHOCYTES 25.1 %; MCH 29.5 pg (26.0-34.0); MCHC 33.5 g/dL (28.0-37.0); MONOCYTES 10.8 %; MPV 8.4 fl. (7.2-11.1); NUCLEATED RBCS 0 /100WBC; PLATELET COUNT* 197 thou/uL (150-400); POLYS 57.6 %; RBC 5.15 mil/uL (4.50-6.00); RDW-CV 14.5 % (10.5-14.5); WBC 12.9 thou/uL (4.0-11.0)
[2019-07-08 13:43] LABS: CALCIUM 9.4 mg/dL (8.5-10.1); CREATININE 1.2 mg/dL (0.6-1.3); POTASSIUM 4.2 mmol/L (3.5-5.1)
[2019-07-08 13:48] LABS: ALBUMIN 3.7 g/dL (3.4-5.0); TOTAL BILIRUBIN 0.3 mg/dL (<0.1-1.0); TOTAL PROTEIN 8.3 g/dL (6.4-8.2)
[2019-07-08 14:41] LABS: ESR (SEDRATE) 41 mm/hr (0-20)
== END ==
LOC: M.WC 03:05
PROVIDERS: Emergency Medicine Undersea and Hyperbaric Medicine
DX: L89.154 Pressure ulcer of sacral region, stage 4 (principal); I10 Essential (primary) hypertension; Z87.820 Personal history of traumatic brain injury; Z85.51 Personal history of malignant neoplasm of bladder

== ENCOUNTER 2019-07-22 12:18 | Inpatient (IN) | payer BC ==
[~2019-07-22] VITALS: Ht 177.8 cm; Wt 84.4 kg
[2019-07-22 12:20] VITALS: BP 122/53
[2019-07-22 12:33] LABS: ABSOLUTE BASOPHILS 0.1 thou/uL (0.0-0.2); ABSOLUTE EOSINOPHILS 0.2 thou/uL (0.0-0.7); ABSOLUTE LYMPHOCYTES 1.5 thou/uL (0.8-5.3); ABSOLUTE MONOCYTES 1.3 thou/uL (0.0-1.2); ABSOLUTE NEUTROPHILS 8.2 thou/uL (1.6-8.1); BASOPHILS 0.7 %; EOSINOPHILS 1.9 %; HEMATOCRIT 32.6 % (42.0-52.0); HEMOGLOBIN 11.1 gm/dL (14.0-18.0); LYMPHOCYTES 13.4 %; MCH 29.5 pg (26.0-34.0); MCHC 33.9 g/dL (28.0-37.0); MCV 87.1 fL (80.0-100.0); MONOCYTES 11.3 %; MPV 8.9 fl. (7.2-11.1); NUCLEATED RBCS 0 /100WBC; PLATELET COUNT* 168 thou/uL (150-400); POLYS 72.7 %; RBC 3.75 mil/uL (4.50-6.00); RDW-CV 14.3 % (10.5-14.5); WBC 11.3 thou/uL (4.0-11.0)
[2019-07-22 12:45] LABS: ALBUMIN 3.1 g/dL (3.4-5.0); CALCIUM 9.3 mg/dL (8.5-10.1); CREATININE 1.4 mg/dL (0.6-1.3); MAGNESIUM 2.3 mg/dL (1.8-2.4); POTASSIUM 4.9 mmol/L (3.5-5.1); TOTAL BILIRUBIN 0.3 mg/dL (<0.1-1.0); TOTAL PROTEIN 7.4 g/dL (6.4-8.2)
[2019-07-22] MEDS ORDERED: LINEZOLID600 MG PO (12:50)
[2019-07-22 13:05] LABS: BE -0.8 mmol/L (-2 to +3); PCO2 37.8 mmHg (35.0-45.0); PO2 74.4 mmHg (75.0-100.0); pH 7.413 (7.340-7.450)
[2019-07-22 13:33] LABS: URINE BILIRUBIN NEGATIVE (Negative); URINE BLOOD NEGATIVE (Negative); URINE CLARITY CLEAR; URINE COLOR YELLOW; URINE GLUCOSE-RANDOM NEGATIVE (Negative); URINE KETONES NEGATIVE (Negative); URINE PROTEIN NEGATIVE (Negative); URINE UROBILINOGEN 0.2 E.U./dl (0.2-1.0)
[2019-07-22 13:34] LABS: URINE LEUKOCYTES-REFLEX 3+ (Negative); URINE NITRITE-REFLEX POSITIVE (Negative)
[2019-07-22 13:41] LABS: APTT 33.1 Seconds (25.0-31.3); PROTIME 10.5 Seconds (9.20-11.50)
[2019-07-22 13:46] LABS: BACTERIA-REFLEX 1-9 Few /HPF (None Seen); MUCUS None Seen strn/LPF (None Seen); SQUAMOUS NONE SEEN /LPF (0-3); URINE RBC 0-2 Rare /HPF (0-2); URINE WBC-REFLEX >25 Many /HPF (0-5); WBC CLUMPS Moderate (None Seen)
[2019-07-22 13:47] LABS: CASTS None Seen /LPF (None Seen); CRYSTALS None Seen /LPF (None Seen)
[2019-07-22 15:20] VITALS: BP 115/70
[2019-07-22 16:00] VITALS: BP 117/48
--- NOTE | 2019-07-22 19:43 | NUR ---
PT ARRIVED ON UNIT AROUND 1545, VSS, UNABLE TO ORIENT DUE TO NONVERBAL CONDITION OF PATIENT, PT HAD TBI IN 2015 CAUSING APHASIA AND IMMOBILITY. SPOUSE REPORTS PATIENT CAN "SCOOT" IN BED, AND HAS GOOD USE OF RIGHT ARM AND HAND. GRIMACES WITH PAIN, ADMISSION COMPLETED, INFORMATION PROVIDED BY SPOUSE. NOLASCO CATHETER, COLOSTOMY, SR TO ST ON TELE, HOURLY ROUNDING COMPLETED
[2019-07-22 20:00] VITALS: BP 111/40
[2019-07-23] VITALS: BP 103/56
[2019-07-23 04:00] VITALS: BP 135/63
--- NOTE | 2019-07-23 07:02 | NUR ---
PT NONVERBAL. PHOTO TAKEN OF WOUND ON SACRUM, WOULD CARE CONSULTED, OPTIFOAM PLACED OVER WOUND. SPOKE WITH FAMILY, STATED THAT HE TAKES PILLS CRUSHED, AND TO HAVE HIM ON A MECH ALTER DIET, BUT CAN STILL DO THIN LIQUIDS, PASSED BEDSIDE SWALLOW TEST.
[2019-07-23 08:00] VITALS: BP 113/54
--- NOTE | 2019-07-23 09:22 | NUR ---
Nutrition: Per notes, family is wanting pt to be on Chopped diet - RD restricted his diet to Chopped. H/o TBI, chronic sacral ulcer. Pt is nonverbal. BG 117, albumin 3.1. Wt stable at 181#. RD ordered Brian TID for wound healing. Increased nutrient needs R/T wound healing AEB chronic sacral ulcer. Recommend MVI as well. Mild risk.
[2019-07-23 12:18] VITALS: BP 98/32
--- NOTE | 2019-07-23 15:33 | NUR ---
CM spoke with Pt's SO of 26 years via phone. Pt is total care, SO does everything for him, SO's dtr assists also PRN. Pt has a sit to stand, power wc, hospital bed, handicapped van. Pt has an ostomy and catheter. An aide from [facility] comes in twice/week to bathe Pt, nurse comes twice/week to assist with wound care. Pt sees Dr Zarate at the wound care center. Hx of [facility] and [facility]. Hx of [facility]. Per , wound care to see, await cultures, Pt may need IVABX at [place]. Following.
[2019-07-23 16:13] VITALS: BP 99/62
--- NOTE | 2019-07-23 16:13 | NUR ---
PT IS AWAKE BUT NONVERBAL DUE TO TBI YEARS AGO.BP HAS BEEN SOFT.SUPERVISOR DUMPING IN PLACE.NO APPARENT PAIN.Q2 HOUR POSITION CHANGES.PT SEEN BY SPEECH THERAPY WITH RECOMMENDATIONS OF KEEPING PT NPO UNTIL VIDEO SWALLOW COMPLETED TOMORROW 07/23/19.ISOLATION MAINTAINED FOR MRSA IN WOUND.WILL CONTINUE TO MONITOR FOR DURATION OF SHIFT.
[2019-07-23 18:10] LABS: HEMOGLOBIN 9.4 gm/dL (14.0-18.0); MCH 29.9 pg (26.0-34.0); MCHC 34.8 g/dL (28.0-37.0); MCV 85.9 fL (80.0-100.0); MPV 8.7 fl. (7.2-11.1); NUCLEATED RBCS 0 /100WBC; PLATELET COUNT* 137 thou/uL (150-400); RBC 3.14 mil/uL (4.50-6.00); RDW-CV 14.3 % (10.5-14.5); WBC 8.4 thou/uL (4.0-11.0)
[2019-07-23 18:19] LABS: CALCIUM 8.2 mg/dL (8.5-10.1); CREATININE 1.3 mg/dL (0.6-1.3); POTASSIUM 4.2 mmol/L (3.5-5.1)
[2019-07-23 18:40] LABS: ABSOLUTE EOSINOPHILS 0.7 thou/uL (0.0-0.7); ABSOLUTE LYMPHOCYTES 1.5 thou/uL (0.8-5.3); ABSOLUTE MONOCYTES 1.2 thou/uL (0.0-1.2); ANISOCYTOSIS Occasional; PLATELET ESTIMATE DECREASED
[2019-07-24] VITALS: BP 121/54
[2019-07-24 04:00] VITALS: BP 146/57
--- NOTE | 2019-07-24 05:49 | NUR ---
RECEIVED REPORT AND ASSUMED CARE OF PT AT 1900. VSS. NO ACUTE CHANGES THROUGHOUT SHIFT. ALL ROUNDINGS COMPLETED, ALL NEEDS MET, FULL ASSESSMENT COMPLETED CHARTED. FULL ORAL CARE COMPLETED BY RN.
[2019-07-24 08:00] VITALS: BP 123/84
--- NOTE | 2019-07-24 11:31 | CON ---
[address] [address] CONSULTATION Name: GIANCARLODENIS Salomon Room: [address] IN M.R.#: [id number] Admission: 07/22/19 Attend Phys: Ezekiel Downs MD Discharge: Date of : 42 Report #: [id number] THIS REPORT FOR: //name// cc: Ezekiel Arevalo MD, David L. MD ~ THIS REPORT FOR: //name// CC: Ezekiel Arevalo DATE OF SERVICE: 07/23/2019 INFECTIOUS DISEASE CONSULTATION ATTENDING PHYSICIAN: Ezekiel Downs MD REASON FOR EVALUATION: Febrile illness with encephalopathy. HISTORY OF PRESENT ILLNESS: The patient has profound deficits known him from previous. This is a 79-year-old, essentially is nonverbal, previous brain injury several years ago. He has longstanding, chronically indwelling bladder catheter. He gets multiple decubitus ulcers, most recently upon the sacrococcygeal area; apparently, followed by the wound care. Also has recurrent urinary tract infections, was admitted through the Emergency Room, noted to have fevers, felt that he had decreased responsiveness as well. Evaluations noted some pyuria. Chest x-ray reveals question of a subtle infiltrate. Recent cultures of his wound, latter part of June, showed polymicrobial growth including Pseudomonas and MRSA. Due to concern about infectious etiology, he was started empirically on combination therapy with levofloxacin, Zosyn and vancomycin. It is notable that Pseudomonas was quite susceptible. He is more alert today. This seems about his baseline from, historically, my interactions with him. He has been afebrile. Vital signs show evidence of mild hypotension. ALLERGIES: None known. CURRENT MEDICATIONS: Include levofloxacin, losartan, amantadine, cholecalciferol, levothyroxine, pantoprazole, vancomycin, atorvastatin, ascorbic acid, enoxaparin, Zosyn and p.r.n. analgesics. PAST MEDICAL HISTORY: As described above; history of hypertension; right carotid endarterectomy; decubitus ulcer, stage 4; suspected osteomyelitis; history of brain injury; recurrent UTIs. SOCIAL HISTORY: He is profoundly disabled. Nonsmoker, no ethanol [place] [address] CONSULTATION Name: DENIS MONDRAGON Room: [address]#: [id number] Admission: 07/22/19 Attend Phys: Ezekiel Downs MD Discharge: Date of : 42 Report #: [id number] FAMILY HISTORY: Noncontributory. REVIEW OF SYSTEMS: Not obtainable. PHYSICAL EXAMINATION: GENERAL: His eyes are open. He is alert. It is not clear that he is aware of my presence. He is in mild distress. He appears chronically ill. VITAL SIGNS: Temperature 97.8, pulse 94, respirations 20, blood pressure 98/32. SKIN: Warm, dry, no rashes. HEENT: Normocephalic. Extraocular muscles intact. NECK: Supple. Some resistance to exam. LUNGS: Diminished breath sounds. HEART: Regular. Borderline tachycardic. I do not appreciate a murmur. ABDOMEN: Soft. There are no apparent peritoneal signs. He has got an ostomy, left side; suprapubic catheter. LABORATORY AND X-RAY DATA: Blood cultures sterile thus far. Lactic acid initially 2.3, repeat was up to 2.5 and now 2.0. Urinalysis, greater than 25 white cells, 1-9 bacteria. ABGs: pH 7.413, pCO2 of 37.8, pO2 of 74.4 on room air. Electrolytes: Sodium 140, potassium 4.9, chloride 104, bicarbonate of 27, anion gap of 9, BUN and creatinine 39 and 1.4, glucose of 117. Albumin of 3.1. Total protein 7.4. Estimated GFR of 49. CBC: White count of 11.3, H and H 11.1 and 32.6, platelets of 168 and monocytosis. ASSESSMENT AND PLAN: Encephalopathy, likely complicated urinary tract infection, cannot entirely exclude a pneumonitis as well, certainly is high risk for infectious complications, who had the ongoing decubitus ulcer with suspected osteomyelitis. We will continue empiric broad-spectrum antibiotics at this point, certainly beneficial of his spouse there to give us more insight during the COVID-19, this is not possible. We will monitor expectantly. Certainly at risk for additional complications. <ELECTRONICALLY SIGNED> By: Travis Copeland MD 07/24/19 1131 1552 [id number] Copeland MD /nt
[2019-07-24 12:00] VITALS: BP 109/43
--- NOTE | 2019-07-24 14:22 | NUR ---
Per , Pt is on IVABX, wound care consulted, waiting on cultures. Anticipate dc to home in a few more days. Pt current with [facility]. Following.
--- NOTE | 2019-07-24 15:26 | NUR ---
low air loss mattress [facility]. conf # [id number]
--- NOTE | 2019-07-24 15:34 | NUR ---
WOUND NURSE: PATIENT SEEN TO ADDRESS COCCYX WOUND WHICH DEVELOPED EARLY Feb 2019 per previous documentation in [facility]. CURRENTLY PRESENTS STAGE 4 PRESSURE INJURY MEASURING 4.0 X 3.5 X 1.0 CM. CONTAINS UNDERMINING FROM 9 TO 5 O'CLOCK MEASURING 3.0 CM. THERE IS PINK GRANULATION TISSUIE IN THE WOUND BED, BUT THERE IS ALSO EXPOSED BONE NOTED. THERE IS MODERATE AMOUNT OF SEROUSANGUINOUS DRAINAGE NOTED. CLEANSED WITH WOUND CLEANSER AND GAUZE, RINSED, THEN PATTED DRY. PACKED LIGHTLY WITH AQUACEL AG UNDER ABD. SECURED WITH TAPE. PATIENT WAS THEN POSITIONED ONTO HIS RIGHT SIDE. PATIENT IS NONTEACHEABLE DUE TO COGNITIVE CHANGES FROM OLD TBA. LOW AIRLOSS MATTRESS REQUESTED FROM NURSING MACHINE PECAN PICKER.
--- NOTE | 2019-07-24 15:48 | NUR ---
VSS,NO APPARENT PAIN.DRESSING CHANGED BY WOUND CARE-DRESSING ORDERS IN CHART.NOLASCO SECURE AND PATENT.COLOSTOMY SECURE AND PATENT WITH FORMED/HARD STOOL.VIDEO SWALLOW COMPLETED WITH RECOMMENDATIONS FOR MECHANCIAL CHOPPED WITH THIN LIQUIDS AND PILLS CRUSHED IN PUREE.Q2 HOUR POSITION COMPLETED.FALL PRECAUTIONS IN PLACE.WILL CONTINUE TO MONITOR FOR DURATION OF SHIFT.
[2019-07-24 16:00] VITALS: BP 117/54
--- NOTE | 2019-07-24 18:27 | NUR ---
LOW AIRLOSS MATTRESS ORDERED AND RECEIVED FOR PT.
[2019-07-24 20:00] VITALS: BP 142/51
[2019-07-25] VITALS: BP 107/56; BP 132/39
[2019-07-25 04:00] VITALS: BP 142/51
--- NOTE | 2019-07-25 05:49 | NUR ---
ASSESSMENTS COMPLETED AT BEDSIDE, PLEASE REFER TO CHARTING. MEDICATIONS CRUSHED AND ADMINISTERED PER MAR. PT IS NONVERBAL AND DOESNT APPEAR TO BE IN ANY PAIN. AIR LOSS MATRESS IN PLACE, D4PIYOR COMPLETED. HOURLY ROUNDING FOR SAFETY.
[2019-07-25 08:00] VITALS: BP 136/47
[2019-07-25 12:00] VITALS: BP 124/53
--- NOTE | 2019-07-25 12:58 | NUR ---
ASSUMED PT CARE REPORT RECEIVED FROM NURSE PT IS ALERT AWAKE, NONVERBAL, FLAT AFFECT, OPEN EYES TO SOUND. ON RA. HEAD OF BED ELEVATED. ORAL CARE PROVIDED. PT HAS POOR APPETTIE. PT WOULD DRINK BUT NOT EAT. PT TRACING SINUS RYTHM PVC ON GRANULAR OPERATOR. MRSA ISOLATION IN PLACE. WOUND CARE PERFORMED AT BEDSIDE. IV ANTIBIOTICS ADMINISTERED. PILLS GIVEN. PO INTAKE ENCOURAGED. CALL LIGTH AT REACH. NOLASCO IN PLACE
--- NOTE | 2019-07-25 14:34 | NUR ---
Per , continue to await cultures. Anticipate dc in a few days. Pt may need IVABX at dc and wound care.
[2019-07-25 16:09] VITALS: BP 120/37
--- NOTE | 2019-07-25 16:25 | NUR ---
PT REPOSITIONED AGAIN. Q2TURN. PROTEIN SHAKE GIVEN TO PATIENT.
[2019-07-25 20:00] VITALS: BP 134/66
[2019-07-26] VITALS: BP 144/56
[2019-07-26 04:00] VITALS: BP 148/62
--- NOTE | 2019-07-26 05:51 | NUR ---
ASSESSMENTS COMPLETED AT BEDSIDE, PLEASE REFER TO CHARTING. MEDICATIONS CRUSHED AND ADMINISTERED PER MAR. PT IS NONVERBAL AND DOESNT APPEAR TO BE IN ANY PAIN. AIR LOSS MATRESS IN PLACE, [id number] COMPLETED. HOURLY ROUNDING FOR SAFETY.
[2019-07-26 08:00] VITALS: BP 133/46
[2019-07-26 12:00] VITALS: BP 116/44
[2019-07-26 16:00] VITALS: BP 137/65
--- NOTE | 2019-07-26 18:13 | NUR ---
ASSUMED PT CARE REPORT RECEIVED FROM NURSE. PT IS ALERT AWAKE, NON-VERBAL, NO COMPLAINT. VSS. ON RA. Q2TURN. PROTEIN INTAKE PROVIDED AT MEAL TIME. ORAL CARE PERFORMED AT BEDSIDE. NO FURTHER COMPLAINT.
--- NOTE | 2019-07-26 18:49 | NUR ---
COLOSTOMY CARE AND COLOSTOMY BAG CHANGED AT BEDSIDE.
[2019-07-26 20:00] VITALS: BP 95/53
[2019-07-27] VITALS: BP 113/52
[2019-07-27 04:00] VITALS: BP 126/49
--- NOTE | 2019-07-27 04:50 | NUR ---
PT ALERT WA WITH FLAT AFFECT. TURN Q 2 HRS. TELEMETRY SHOWS SR. GAURAV FOR RETENTION. COLOSTOMY WITH ABDULAZIZ ESCOTO. DRSG ON COCCYX D/I.=
[2019-07-27 05:10] LABS: HEMATOCRIT 29.1 % (42.0-52.0); HEMOGLOBIN 9.8 gm/dL (14.0-18.0); MCH 28.9 pg (26.0-34.0); MCHC 33.7 g/dL (28.0-37.0); MCV 85.8 fL (80.0-100.0); RBC 3.39 mil/uL (4.50-6.00); RDW-CV 14.3 % (10.5-14.5); WBC 13.3 thou/uL (4.0-11.0)
[2019-07-27 05:25] LABS: ALBUMIN 2.9 g/dL (3.4-5.0); CALCIUM 8.8 mg/dL (8.5-10.1); CREATININE 1.2 mg/dL (0.6-1.3); MAGNESIUM 2.2 mg/dL (1.8-2.4); PHOSPHORUS* 2.5 mg/dL (2.5-4.9); POTASSIUM 3.5 mmol/L (3.5-5.1)
[2019-07-27 08:00] VITALS: BP 101/69
--- NOTE | 2019-07-27 11:14 | NUR ---
ASSUMED PT CARE REPORT RECEIVED FROM NURSE. PT IS ALERT AWAKE, NONVERBAL.OPEN EYES. FLAT AFFECT. ON RA. VSS. NORMAL SALINE ADMINISTERED ORDERED. WOUND PICTURE TAKEN IT IS SUNDAY. AND WOUND CARE PERFORMED AT BEDSIDE. Q2 TURN. PT FED SOFT FOOD WITH PROTEIN SUPPLEMENT. PT/OT ORDERED. NOLASCO IN PLACE. ISOLATION IN PLACE. WILL CONTINUE TO MONITOR
[2019-07-27 12:00] VITALS: BP 117/54
[2019-07-27 16:00] VITALS: BP 118/46
[2019-07-27 19:35] VITALS: BP 112/47
[2019-07-28] VITALS: BP 151/47
[2019-07-28 04:00] VITALS: BP 129/51
--- NOTE | 2019-07-28 06:58 | NUR ---
PATIENT PROGRESSING TOWARDS GOALS: NO SIGNS OF ASPIRATION THROUGHOUT SHIFT. PATIENT REMAINS ON ROOM AIR. NOLASCO AND COLOSTOMY IN PLACE. NO APPARENT SIGNS OF PAIN.
[2019-07-28 08:00] VITALS: BP 128/54; BP 129/51
[2019-07-28 08:16] LABS: HEMATOCRIT 25.8 % (42.0-52.0); HEMOGLOBIN 8.6 gm/dL (14.0-18.0); MCH 28.9 pg (26.0-34.0); MCHC 33.2 g/dL (28.0-37.0); MCV 87.1 fL (80.0-100.0); MPV 7.4 fl. (7.2-11.1); RBC 2.96 mil/uL (4.50-6.00); RDW-CV 14.5 % (10.5-14.5); WBC 12.2 thou/uL (4.0-11.0)
[2019-07-28 08:26] LABS: ALBUMIN 2.6 g/dL (3.4-5.0); CALCIUM 8.1 mg/dL (8.5-10.1); CREATININE 1.2 mg/dL (0.6-1.3); PHOSPHORUS* 2.7 mg/dL (2.5-4.9); POTASSIUM 3.6 mmol/L (3.5-5.1)
[2019-07-28] MEDS ORDERED: LEVAQUIN 500 M500 M2 PO (10:44)
[2019-07-28 12:00] VITALS: BP 134/58
--- NOTE | 2019-07-28 15:14 | NUR ---
ASSUMED CARE OF PATIENT THIS AM AT 0730. PATIENT IS UNRESPONSIVE VERBALLY. TELE SHOWS NSR. DOCTORS WERE IN TO ROUND AND DISCHARGE ORDERS WERE WRITTEN. PATIENT ASSISTED WITH ADLS THROUGHOUT THE DAY. PATIENT TO DISCHARGE HOME WITH HOME HEALTH.
[2019-07-28 16:00] VITALS: BP 128/52
[2019-07-28 19:45] VITALS: BP 122/51
[2019-07-29 00:16] VITALS: BP 102/41
[2019-07-29 04:36] VITALS: BP 137/47
--- NOTE | 2019-07-29 05:57 | NUR ---
NO CHANGED IN PATIENT'S STATUS. PATIENT STILL PENDING DISCHARGE WHEN HIS FAMILY IS BACK IN TOWN. PATIENT DOES NOT APPEAR TO BE IN ANY PAIN OR DISCOMFORT. NOLASCO AND COLOSTOMY IN PLACE, CHRONIC.
--- NOTE | 2019-07-29 07:05 | NUR ---
CHANGE OF SHIFT BEDSIDE REPORT GIVEN PATIENT SEEN AT BEDSIDE PATIENT IN BED RESTING ASSUMED PATIENT CARE
[2019-07-29 08:00] VITALS: BP 137/52
--- NOTE | 2019-07-29 12:29 | NUR ---
PT.HAS DISCHARGE ORDERS FOR TODAY. HARINI SPOKE WITH EDEN/PTS S.O. AT [phone]. SHE IS READY TO RECEIVE HIM HOME. SHE CONTINUES TO WANT TO USE [facility] FOR HOME HEALTH. HARINI CONTACTED JAVIER/FIONA AND FAXED HER DISCHARGE SUMMARY,H&P,WOUND NURSE NOTE AND WOUND CARE ORDERS. DEEN SAID PT.USUALLY SEES IN WOUND CLINIC ON SUNDAY. EXPLAINED WANTED TO SEE HIM IN 2 WEEKS IN WOUND CENTER.TOLD HER TO EXPECT PT.AOUBT 3:30 AT HOME PER AMBULANCE.
[2019-07-29 12:33] VITALS: BP 137/52
--- NOTE | 2019-07-29 12:47 | NUR ---
Nutrition: Consult received for wound. Pt is discharging home today and will follow outpt in wound clinic. RD ordered Brian for pt last week upon initial assessment. MAIKOL is resolved. Wt stable @ 186#. Chopped diet. Nonverbal s/p TBI. Chronic sacral ulcer. Mild to moderate risk. Increased nutrient needs R/T wound healing AEB chronic ulcer. Recommend contuing Brian at home, as well as MVI use.
[2019-07-29 12:57] VITALS: BP 137/52
--- NOTE | 2019-07-29 14:58 | NUR ---
AMBULANCE ARRANGED WITH [facility] FOR RECYCLING TECHNICIAN BETWEEN 3-3:30. THEY ARE DISPATCHING NOW. APPT MADE WITH WOUND CARE CENTER TO SEE FOR NEXT 08/04. THEY WILL DISCUSS FOLLOW UP WITH FOR 2 WKS WITH HIS S.O. AT APPT NEXT .
--- NOTE | 2019-07-29 16:10 | NUR ---
PATIENT DISCHARGED TO HOME WITH H/H IV AND HEART MONITOR RMOVED PERSONAL BELONGINGS BAGGED AND SENT SO, EDEN CALLED AND NOTIFIED OF AMBULANCE PICKUP AND DEPARTURE
== END 2019-07-29 16:14 | disposition home health service (06) | DRG 871 ==
LOC: M.ERS 12:18 → M.2W 14:21 → M.TBA-ER 14:21 → M.2W 15:50
PROVIDERS: Family Medicine; Personal Emergency Response Attendant; ADMIT Internal Medicine
DX: A41.9 Sepsis, unspecified organism (principal); L89.154 Pressure ulcer of sacral region, stage 4; G92 Toxic encephalopathy; J18.9 Pneumonia, unspecified organism; T83.518A Infection and inflammatory reaction due to other urinary catheter, initial encounter; N17.9 Acute kidney failure, unspecified; N39.0 Urinary tract infection, site not specified; I10 Essential (primary) hypertension; E86.0 Dehydration; B96.5 Pseudomonas (aeruginosa) (mallei) (pseudomallei) as the cause of diseases classified elsewhere; Y83.9 Surgical procedure, unspecified as the cause of abnormal reaction of the patient, or of later complication, without mention of misadventure at the time of the procedure; F03.90 Unspecified dementia, unspecified severity, without behavioral disturbance, psychotic disturbance, mood disturbance, and anxiety; Z93.3 Colostomy status; Z74.01 Bed confinement status; Z89.421 Acquired absence of other right toe(s); Z85.51 Personal history of malignant neoplasm of bladder; Z79.899 Other long term (current) drug therapy; Y92.89 Other specified places as the place of occurrence of the external cause

== ENCOUNTER → 2019-08-05 | Outpatient (CLI) | payer BC ==
[~2019-08-05] MED LIST changes: +LEVAQUIN 500 M500 M2 PO; +LINEZOLID600 MG PO
== END ==
LOC: M.WC 04:44
DX: L89.154 Pressure ulcer of sacral region, stage 4 (principal); I10 Essential (primary) hypertension; Z87.820 Personal history of traumatic brain injury; Z85.51 Personal history of malignant neoplasm of bladder

== ENCOUNTER → 2019-08-12 | Outpatient (CLI) | payer BC ==
[~2019-08-12] MED LIST changes: +NORVASC 2.5 MG2.5 M1 PO; +NOXIFOL-D32500 UNIT PO; -VITAMIN D2000 UNIT PO; +ZOSYN 3.373.375 GM/1 IV; +ZYVOX600 MG PO
== END ==
LOC: M.WC 04:25
PROVIDERS: ATTEND Emergency Medicine Undersea and Hyperbaric Medicine
DX: L89.154 Pressure ulcer of sacral region, stage 4 (principal); I10 Essential (primary) hypertension; Z87.820 Personal history of traumatic brain injury; Z85.51 Personal history of malignant neoplasm of bladder

== ENCOUNTER 2019-08-17 13:08 | Inpatient (IN) | payer BC ==
[~2019-08-17] VITALS: Ht 175.3 cm; Wt 50.4 kg
--- NOTE | ~2019-08-17 | PROC ---
[facility] [address] [place] [address] PROCEDURE REPORT Name: DENIS MONDRAGON Room: [address] IN M.R.#: [id number] Admission: 08/17/19 Attend Phys: Erika Coburn MD Discharge: Date of : 42 Report #: [id number] THIS REPORT FOR: //name// cc: Ezekiel Arevalo MD, David L. MD ~ THIS REPORT FOR: //name// For GI report, please see the Provation report in Perceptive 7 content. By: [facility]4Medical Records Staff [facility] /YUAN
[~2019-08-17 13:08] MED LIST changes: -NORVASC 2.5 MG2.5 M1 PO; -ZOSYN 3.373.375 GM/1 IV; -ZYVOX600 MG PO
[2019-08-17 13:24] VITALS: BP 119/55
[2019-08-17 13:49] LABS: ABSOLUTE BASOPHILS 0.1 thou/uL (0.0-0.2); ABSOLUTE EOSINOPHILS 1.1 thou/uL (0.0-0.7); ABSOLUTE LYMPHOCYTES 3.4 thou/uL (0.8-5.3); ABSOLUTE MONOCYTES 1.1 thou/uL (0.0-1.2); ABSOLUTE NEUTROPHILS 6.1 thou/uL (1.6-8.1); BASOPHILS 1.1 %; EOSINOPHILS 9.7 %; HEMATOCRIT 31.5 % (42.0-52.0); HEMOGLOBIN 10.2 gm/dL (14.0-18.0); LYMPHOCYTES 28.6 %; MCH 30.5 pg (26.0-34.0); MCHC 32.5 g/dL (28.0-37.0); MCV 93.8 fL (80.0-100.0); MONOCYTES 9.1 %; MPV 10.2 fl. (7.2-11.1); NUCLEATED RBCS 0 /100WBC; PLATELET COUNT* 136 thou/uL (150-400); POLYS 51.5 %; RBC 3.36 mil/uL (4.50-6.00); WBC 11.8 thou/uL (4.0-11.0)
[2019-08-17] MEDS ORDERED: ZYVOX600 MG PO ×2 (13:49)
[2019-08-17] MEDS ORDERED: NORVASC 2.5 MG2.5 M1 PO ×2 (13:49)
[2019-08-17 13:56] LABS: CALCIUM 9.5 mg/dL (8.5-10.1); CREATININE 1.5 mg/dL (0.6-1.3)
[2019-08-17 13:58] LABS: POTASSIUM 5.1 mmol/L (3.5-5.1)
[2019-08-17 14:00] LABS: ALBUMIN 3.6 g/dL (3.4-5.0); TOTAL BILIRUBIN 0.3 mg/dL (<0.1-1.0); TOTAL PROTEIN 7.8 g/dL (6.4-8.2)
[2019-08-17 14:57] LABS: URINE BILIRUBIN NEGATIVE (Negative); URINE BLOOD NEGATIVE (Negative); URINE CLARITY CLEAR; URINE COLOR YELLOW; URINE GLUCOSE-RANDOM NEGATIVE (Negative); URINE KETONES NEGATIVE (Negative); URINE PROTEIN NEGATIVE (Negative); URINE SPECIFIC GRAVITY <= 1.005 (1.005-1.030); URINE UROBILINOGEN 0.2 E.U./dl (0.2-1.0)
[2019-08-17 14:58] LABS: URINE LEUKOCYTES-REFLEX 2+ (Negative); URINE NITRITE-REFLEX POSITIVE (Negative)
[2019-08-17 15:17] LABS: HYALINE CASTS 0-3 Few /LPF (None Seen); MUCUS 0-3 Light strn/LPF (None Seen)
[2019-08-17 15:19] LABS: BACTERIA-REFLEX >30 Many /HPF (None Seen); CRYSTALS None Seen /LPF (None Seen); URINE WBC-REFLEX >25 Many /HPF (0-5)
[2019-08-17 15:20] LABS: SQUAMOUS 0-3 Few /LPF (0-3); URINE RBC None Seen /HPF (0-2)
[2019-08-17 16:45] VITALS: BP 122/40
--- NOTE | 2019-08-17 16:45 | NUR ---
er admit to 201 telephone report given prior to arrival patient nonverbal no s/s of pain
[2019-08-17 16:46] VITALS: BP 122/82
[2019-08-17 19:39] VITALS: BP 92/45
[2019-08-18] VITALS: BP 98/35
[2019-08-18 04:00] VITALS: BP 106/40
--- NOTE | 2019-08-18 06:55 | NUR ---
NO ACUTE CHANGES THROUGHOUT SHIFT. ALL ROUNDINGS COMPLETED, ALL NEEDS MET, FULL ASSESSMENT COMPLETED CHARTED.
[2019-08-18 08:00] VITALS: BP 112/42
--- NOTE | 2019-08-18 10:01 | NUR ---
WOUND NURSE: PATIENT SEEN TO ADDRESS STAGE 4 PRESSURE INJURY TO COCCYX. MEASURES 4.3 X 3.0 X 1.3 CM AND IS UNDERMINED FROM 9 TO 5 O'CLOCK 2.3 CM. PATIET IS SEEN IN WOUND CENTER. THERE IS A VERY SMALL AREA OF EXPOSED BONE IN THE CENTER OF THE WOUND AND THER REMAINING PORTION OF THE WOUND BED CONTAINS THIN LAYER OF PINK, RED, AND DARK RED GRANULATION TISSUE. THERE IS A MODERATE AMOUNT OF YELLOW DRAINAGE ON THE OLD DRESSING. THERE IS NO PERIWOUND REDNESS, WARMTH, OR INDURATION. WOUND WAS CLEANSED WITH SOAP AND WATER, RINSED WITH WATER, THEN PATTED DRY. RINSED WOUND BED WITH NORMAL SALINE AND OBTAINED AEROBIC AND ANEROBIC SWAB C&S. THEN WOUND VAC DRESSING WAS APPLIED PER PROTOCAL USING SKIN PEP, TRANSPARENT DRAPE, GRANUFOAM, AND TRAC PAD. VAC ULTA WAS USED AND SETTINGS WERE 125MMHG CONTINUOUS NEGATIVE PRESSURE, INTENSITY HIGH. PATIENT IS SEEN IN [facility] AND WOUND ONSET DATE FROM THERE IS 02/25/2019. PATIENT IS NONCOMMUNICATIVE AND NON TEACHEABLE. PLAN TO REQUEST LOW AIRLOSS MATTRESS FOR PATIENT.
--- NOTE | 2019-08-18 11:20 | EKG ---
[place] [address] ELECTROCARDIOGRAM REPORT Name: DENIS MONDRAGON Room: [address] ADM IN ..#: [id number] Admission: 08/17/19 Attend Phys: Erika Coburn, Discharge: Date of : 42 Date of Service: 08/17/19 1321 Report #: [id number] THIS REPORT FOR: //name// [facility] ED Test Date: 2019-08-17 Test Time: 13:21:33 Pat Name: DENIS MONDRAGON Department: Room: [facility] Gender: M Director Of Medical Services: [place] : 1940 Requested By: Franko Coleman Order Number: [id number] MD: Ezekiel Martinez Measurements Intervals [place] Rate: 92 P: -55 [place]: 195 QRS: -5 QRSD: 82 T: 133 QT: 339 QTc: 420 Interpretive Statements Sinus or ectopic atrial rhythm Abnormal R-wave progression, early transition Anteroseptal infarct, old Abnormal T, consider ischemia, lateral leads Baseline wander in lead(s) V3 Compared to ECG 05/16/2019 12:40:09 Ectopic atrial rhythm now present T-wave abnormality now present Possible ischemia now present Ventricular premature complex(es) no longer present Myocardial infarct finding still present Electronically Signed On 08-18-2019 11:19:43 CDT by Ezekiel Martinez [email or web address] <ELECTRONICALLY SIGNED> By: Ezekiel Martinez MD, [facility] 08/18/19 1119 1321 1321 Ezekiel Martinez MD, [facility] /EPI
[2019-08-18 12:08] VITALS: BP 112/42
[2019-08-18 13:19] LABS: ABSOLUTE BASOPHILS 0.1 thou/uL (0.0-0.2); ABSOLUTE EOSINOPHILS 0.7 thou/uL (0.0-0.7); ABSOLUTE LYMPHOCYTES 2.4 thou/uL (0.8-5.3); ABSOLUTE MONOCYTES 1.3 thou/uL (0.0-1.2); ABSOLUTE NEUTROPHILS 4.3 thou/uL (1.6-8.1); BASOPHILS 1.1 %; HEMATOCRIT 24.2 % (42.0-52.0); LYMPHOCYTES 27.6 %; MCH 30.1 pg (26.0-34.0); MCHC 33.3 g/dL (28.0-37.0); MCV 90.4 fL (80.0-100.0); MONOCYTES 14.3 %; MPV 9.5 fl. (7.2-11.1); NUCLEATED RBCS 0 /100WBC; PLATELET COUNT* 85 thou/uL (150-400); RBC 2.68 mil/uL (4.50-6.00); RDW-CV 18.9 % (10.5-14.5); WBC 8.8 thou/uL (4.0-11.0)
--- NOTE | 2019-08-18 15:06 | NUR ---
Pt known to this CM from previous hospital stay. Spoke with [facility] via phone. Pt is total care and [facility] provides all of Pt's care. Pt is current with [facility] for a nurse and aid. Pt has a power wc for mobility, sit to stand and hospital bed. SO drives a wc van so is able to transport Pt. Pt has an ostomy and ferrera. Hx of [facility]. Goal is home at pr. Following.
[2019-08-18 16:00] VITALS: BP 118/46
--- NOTE | 2019-08-18 16:32 | NUR ---
ORDERS RECEIVED. AFTER SPEAKING WITH PATIENT'S , PATIENT'S IS FULLY DEPENDENT AT HOME REQUIRING A MECHANICAL LIFTING DEVICE FOR TRANSFERS AND TOTAL ASSIST FOR ALL OTHER NEEDS. NO P.T. IS RECOMMENDED PATIENT IS AT HIS BASE-LINE MOBILITY STATUS. THANK-YOU FOR THIS REFERRAL. BOLA NEGRETE, MPT
[2019-08-18 19:30] VITALS: BP 109/45
--- NOTE | 2019-08-18 19:43 | NUR ---
PT. ALERT, UNABLE TO ASSESS ORIENTATION NONVERBAL, SIGNS OF PAIN NOT OBSERVED AND CONFIRMED BY WHO WAS AT BEDSIDE MOST OF THE DAY. IVF INFUSING WITHOUT COMPLICATIONS. PT. PLACED ON WOUND VAC, MODERATE AMOUNT OF SEROUSANGUINOUS DRAINAGE NOTED. PT. ON COLOSTOMY AND HAD SMAL BM OF DARKISH STOOLS PER TEA, INTERNET MARKETING CONSULTANT. PT HAS SPLINT ON LEFT HAND TO SUPPORT CONTRATURE AND PIV. PT. TURNED Q2 SIDE TO SIDE TO OFFLOAD WEIGHT ON S4 COCCYX WOUND. DRESSING CDI AND SUCTIONING ADEQUATELY. ADEQUATE URINE OUT PER NOLASCO, TUBE PATENT. HOURLY ROUNDING PERFORMED. CALL LIGHT AND PERSONAL BELONGINGS PLACED WITHIN REACH. NPO AFTER MN FOR EGD TOMORROW.
[2019-08-19] VITALS: BP 107/48
[2019-08-19 04:00] VITALS: BP 98/38
[2019-08-19 05:10] LABS: CALCIUM 8.2 mg/dL (8.5-10.1); POTASSIUM 3.9 mmol/L (3.5-5.1)
[2019-08-19 05:19] LABS: ABSOLUTE BASOPHILS 0.1 thou/uL (0.0-0.2); ABSOLUTE EOSINOPHILS 0.7 thou/uL (0.0-0.7); ABSOLUTE LYMPHOCYTES 2.9 thou/uL (0.8-5.3); ABSOLUTE MONOCYTES 1.2 thou/uL (0.0-1.2); ABSOLUTE NEUTROPHILS 4.2 thou/uL (1.6-8.1); EOSINOPHILS 7.9 %; HEMOGLOBIN 7.1 gm/dL (14.0-18.0); LYMPHOCYTES 31.8 %; MCH 30.6 pg (26.0-34.0); MCHC 33.7 g/dL (28.0-37.0); MCV 90.6 fL (80.0-100.0); MONOCYTES 13.4 %; MPV 10.6 fl. (7.2-11.1); NUCLEATED RBCS 0 /100WBC; PLATELET COUNT* 62 thou/uL (150-400); POLYS 45.9 %; RBC 2.32 mil/uL (4.50-6.00); RDW-CV 18.8 % (10.5-14.5); WBC 9.2 thou/uL (4.0-11.0)
--- NOTE | 2019-08-19 06:41 | NUR ---
VSS. NO ACUTE CHANGES THROUGHOUT SHIFT. SEE CHARTING FOR MORE INFO.
[2019-08-19 08:00] VITALS: BP 121/46
[2019-08-19 11:56] VITALS: BP 118/36
--- NOTE | 2019-08-19 14:10 | NUR ---
Per , Pt to have an EGD today.
--- NOTE | 2019-08-19 19:04 | NUR ---
PT VSS, STABLE ON TELE, NO INDICATION OF PAIN. WAS OFF FLOOR FOR EGD, IVF RESUMED. ADVANCED DIET, SPOUSE AT BEDSIDE FEEDING. HOURLY ROUNDING PERFORMED. PT. TRANSFERED TO A LOW AIRLOSS MATTRESS. WOUND VAC ON COCCYX, NO LEAKS DETECTED. COLOSTOMY PRESENT ON LUQ, VENTILATED FOR GAS. CALL LIGHT PLACED WITHIN REACH. PT. IN BED, WITH SPOUSE, IN NO APPARENT DISTRESS AT SHIFT CHANGE.,
[2019-08-19 20:49] VITALS: BP 115/48
[2019-08-20] VITALS: BP 112/52
[2019-08-20 04:00] VITALS: BP 125/40
[2019-08-20 05:50] LABS: ABSOLUTE BASOPHILS 0.1 thou/uL (0.0-0.2); ABSOLUTE EOSINOPHILS 0.6 thou/uL (0.0-0.7); ABSOLUTE LYMPHOCYTES 2.2 thou/uL (0.8-5.3); ABSOLUTE MONOCYTES 1.8 thou/uL (0.0-1.2); ABSOLUTE NEUTROPHILS 7.8 thou/uL (1.6-8.1); BASOPHILS 0.4 %; EOSINOPHILS 5.1 %; LYMPHOCYTES 17.7 %; MCH 30.1 pg (26.0-34.0); MCHC 33.8 g/dL (28.0-37.0); MCV 88.8 fL (80.0-100.0); MONOCYTES 14.4 %; MPV 9.7 fl. (7.2-11.1); NUCLEATED RBCS 0 /100WBC; PLATELET COUNT* 66 thou/uL (150-400); POLYS 62.4 %; RBC 2.07 mil/uL (4.50-6.00); RDW-CV 17.8 % (10.5-14.5); WBC 12.5 thou/uL (4.0-11.0)
[2019-08-20 06:04] LABS: CALCIUM 8.2 mg/dL (8.5-10.1); CREATININE 0.9 mg/dL (0.6-1.3); HEMATOCRIT 18.4 % (42.0-52.0); HEMOGLOBIN 6.2 gm/dL (14.0-18.0); POTASSIUM 3.6 mmol/L (3.5-5.1)
[2019-08-20 08:00] VITALS: BP 141/65
--- NOTE | 2019-08-20 08:12 | NUR ---
PT IS ABLE TO COMMUNICATE HIS NEEDS TO STAFF WITH MAJOR DIFFICULTY; HIS BASELINE IS NON-VERBAL COMMUNICATION, HE CAN SHAKE HIS HEAD YES OR NO AT TIMES. HE DID NOT APPEAR TO BE HAVING PAIN DURING FIELD MACHINIST; HE DID NOT SEEM TO MAKE AN ATTEMPT TO ANSWER THE QUESTION ABOUT PAIN WHEN ASKED. NOLASCO IS PATENT UP TO THIS TIME. COLOSTOMY IS ALSO PATENT UP TO THIS TIME. WOUND VAC PATENT OVERNIGHT. CONTACT ISOLATION MAINTAINED.
--- NOTE | 2019-08-20 08:43 | NUR ---
WOUND NURSE: PATIENT SEEN THIS MORNING TO CHANGE WOUND VAC DRESSING PER PROTOCAL AND WITHOUT COMPLICATING FACTORS. SEE INTERVENTIONS FOR SPECIFICS. PATIENT POSITIONED FROM THE RIGHT TO THE LEFT SIDE FOLLOWING COMPLETION OF DRESSING CHANGE. PATIENT IS NOT TEACHEABLE DUE TO OLD TBI.
[2019-08-20 11:30] VITALS: BP 114/45; BP 126/47; BP 147/65; BP 157/66
[2019-08-20 16:00] VITALS: BP 120/37
[2019-08-20 16:18] LABS: HEMATOCRIT 23.8 % (42.0-52.0)
[2019-08-21] VITALS: BP 108/40
[2019-08-21 04:42] LABS: HEMOGLOBIN 7.5 gm/dL (14.0-18.0); MCH 30.3 pg (26.0-34.0); MCHC 34.1 g/dL (28.0-37.0); MCV 88.6 fL (80.0-100.0); NUCLEATED RBCS 0 /100WBC; PLATELET COUNT* 91 thou/uL (150-400); RBC 2.49 mil/uL (4.50-6.00); RDW-CV 16.5 % (10.5-14.5); WBC 14.9 thou/uL (4.0-11.0)
[2019-08-21 04:55] LABS: CALCIUM 8.1 mg/dL (8.5-10.1); CREATININE 1.1 mg/dL (0.6-1.3); POTASSIUM 3.6 mmol/L (3.5-5.1)
[2019-08-21 05:26] LABS: ABSOLUTE EOSINOPHILS 0.3 thou/uL (0.0-0.7); ABSOLUTE LYMPHOCYTES 3.9 thou/uL (0.8-5.3); ABSOLUTE MONOCYTES 0.7 thou/uL (0.0-1.2); PLATELET ESTIMATE ADEQUATE
[2019-08-21 08:00] VITALS: BP 122/50
--- NOTE | 2019-08-21 11:08 | PATH ---
[facility] [address] [place] [address] PATHOLOGY RPT PROCEDURE Name: DENIS WILKINS Room: [address] IN M.R.#: [id number] Admission: 08/17/19 Date of : 42 Discharge: Report #: [id number] Path Case #: [id number] [facility] Accession Number: [id number] . 01 Material submitted: . stomach - GASTRIC POLYP . 01 Clinician provided ICD-10: A41.9 N17.0 . 02 Diagnosis: Gastric polyp: - Hyperplastic gastric polyp with erosion and prominent acute and chronic inflammation, negative for Helicobacter pylori organisms, granulomas and dysplasia/adenomatous change. (DEBORAH/db; 08/20/2019) . Special stain: H. pylori immuno LBQ 08/21/2019 1029 Local . 02 Electronically signed: . Cruzito Pompa MD, Pathologist NPI- [id number] . 01 Gross description: . The specimen is received in formalin, labeled "Denis Wilkins, gastric polyp" and consists of a polypoid segment of pink-taveras tissue measuring 1.0 x 0.7 x 0.6 cm. The margin is inked. It is trisected and entirely submitted in A1. ([facility]; 08/19/2019) JFQ/JFQ 08/19/2019 2213 Local . 02 Pathologist provided ICD-10: K31.7, K29.00, K29.50 . 02 CPT . 563099, V00431 Specimen Comment: A courtesy copy of this report has been sent to [phone], [phone] Specimen Comment: [phone], Specimen Comment: Report sent to ,DR KUO / DR HANSON Performed at: [address] [id number] MD Adin Corcoran MD Phone: [phone] Performed at: 02 [place] [address] PATHOLOGY RPT PROCEDURE Name: DENIS WILKINS Room: [address] IN [facility]#: [id number] Admission: 08/17/19 Date of : 42 Discharge: Report #: [id number] Path Case #: [id number] [address] [place] [address] [place], [place] [id number] MD Cruzito Pompa MD Phone: [phone]
--- NOTE | 2019-08-21 11:46 | CON ---
[address] [address] CONSULTATION Name: DENIS MONDRAGON Room: [address] IN M.R.#: [id number] Admission: 08/17/19 Attend Phys: Erika Coburn MD Discharge: Date of : 42 Report #: [id number] THIS REPORT FOR: //name// cc: Ezekiel Arevalo MD, David L. MD ~ THIS REPORT FOR: //name// CC: Ezekiel Coburn DATE OF SERVICE: 08/20/2019 INFECTIOUS DISEASE CONSULTATION ATTENDING PHYSICIAN: Dr. Coburn. REASON FOR EVALUATION: Complicated urinary tract infection. The patient with profound neurological deficits, chronic indwelling bladder catheter, who now apparently has a complicated UTI due to a combination of multiple resistant organisms. HISTORY OF PRESENT ILLNESS: Chart reviewed, patient examined. This is a 79-year-old gentleman known to myself. I see him periodically. He has profound neurological deficits. He is essentially nonverbal. He is completely bedbound. This is all stemming from brain injury several years ago. He has got a chronic indwelling catheter. He has got frequent urinary tract infections. In addition, this is ongoing, decubitus ulcers, presented to the Emergency Room on 08/17/2019 with progressive weakness, decreased appetite and noted to have dark stools, which turned to be heme positive. He has been undergoing evaluation. Initially, urinalysis did show marked pyuria. Urine culture with growth of Pseudomonas aeruginosa, drainage from sacral wound, had polymicrobial growth including Klebsiella pneumoniae, which was an extended spectrum beta lactamase producing strain as well as Pseudomonas aeruginosa, had been on combination therapy with vancomycin and cefepime, latter was switched to piperacillin, tazobactam. In terms of evaluation of the heme-positive stools, he did undergo EGD, which showed pedunculated polyp with bleeding in the stomach, antrum as well as a polyp in the cardia, normal duodenum, attempt to refeed; however, he has had difficulty swallowing, speech evaluation is pending. ALLERGIES: None known. MEDICATIONS: Include now Zosyn, vancomycin, enoxaparin, atorvastatin, ascorbic acid, losartan, ranitidine, levothyroxine, cholecalciferol, pantoprazole, amlodipine, p.r.n. analgesics and antiemetics. PAST MEDICAL HISTORY: As described above, brain injury in 2014 [place] [address] CONSULTATION Name: DENIS MONDRAGON Room: [address] IN [facility]#: [id number] Admission: 08/17/19 Attend Phys: Erika Coburn MD Discharge: Date of : 42 Report #: [id number] sequelae, essentially nonverbal, bedbound, recurrent decubitus ulcers, history of recurrent urinary tract infections as well. There is history in a distant past of bladder cancer. SOCIAL HISTORY: Not pertinent to nonsmoker, alcohol in the distant past. FAMILY HISTORY: Noncontributory. REVIEW OF SYSTEMS: Not obtained due to his nonverbal state. PHYSICAL EXAMINATION: GENERAL: Eyes are open. It is not clear that he is tracking, appears chronically ill. VITAL SIGNS: Temperature 99.5 with a T-max of 100.4 over the last 24 hours, pulse 91, respirations 24, blood pressure 125/40. SKIN: Warm, dry, no rashes. HEENT: Some resistance and decreased range of motion about the neck. LUNGS: He has got mild tachypnea. Lungs are diminished overall. HEART: Regular. He does have a fairly prominent systolic murmur. ABDOMEN: Somewhat firm, distended. He has an ostomy in place. I do not appreciate any overt peritoneal signs. GENITOURINARY/RECTAL: Deferred. LABORATORY DATA: Drainage culture with a combination of Klebsiella pneumoniae as well as pseudomonas. The former is quite resistance, although susceptible to cefoxitin, amikacin, carbapenems and Zosyn. Urine culture with growth of Pseudomonas, which was remarkable for an intermediate susceptibility to gentamicin, otherwise susceptible to the remainder of the panel. Electrolytes: Sodium 143, potassium 3.6, chloride 110, bicarbonate 24, anion gap of 9, BUN and creatinine 14 and 0.9. CBC: White count of 12.5, H and H 6.2 and 18.4, platelets of 66. Path pending. Blood cultures are sterile thus far. Urinalysis showed greater than 25 white cells, greater than 30 bacteria. ASSESSMENT: Complicated urinary tract infection due to resistant gram-negative, specifically Pseudomonas as well as wound culture with gram-negative as well. We will continue the piperacillin and tazobactam as a reasonable option to try to preserve the ____ broad-spectrum meropenem in this setting. He does clinically note that there is not ability to swallow at this point, it is problematic given his situation. Speech will work with him. Continue to monitor expectantly. Certainly at risk for nosocomial related infectious complications as well as other complications. Continue wound care as prescribed. <ELECTRONICALLY SIGNED> By: Travis Copeland MD 08/21/19 1146 1335 2202Joyu Copeland MD /nt
[2019-08-21 12:00] VITALS: BP 106/36
--- NOTE | 2019-08-21 12:49 | NUR ---
Per , anticipate dc today or tomorrow pending ID antibiotic rec
[2019-08-21 16:00] VITALS: BP 116/53
--- NOTE | 2019-08-21 22:49 | NUR ---
ASSUMED CARE OF PT AT 1900. PT IS ALERT BUT NONVERBAL. PT IS A Q2 TURN. VSS. PERRLA. NO SIGNS OR SYMPTOMS OF PAIN. PT HAS A NOLASCO IN PLACE. PT IS IN SINUS RYTHM ON THE TELEMETRY. PT IS RESTING COMORTABLY IN BED. RESPIRATIONS ARE EVEN AND NONLABORED. WILL CONTINUE TO MONITOR PT.
[2019-08-22] VITALS (7 sets, daily range): BP systolic 113–184; BP diastolic 42–72
[2019-08-22 06:11] LABS: ABSOLUTE EOSINOPHILS 0.8 thou/uL (0.0-0.7); ABSOLUTE LYMPHOCYTES 2.5 thou/uL (0.8-5.3); ABSOLUTE MONOCYTES 1.4 thou/uL (0.0-1.2); ABSOLUTE NEUTROPHILS 7.5 thou/uL (1.6-8.1); BASOPHILS 0.2 %; EOSINOPHILS 6.3 %; LYMPHOCYTES 20.2 %; MCH 30.4 pg (26.0-34.0); MCHC 34.4 g/dL (28.0-37.0); MCV 88.6 fL (80.0-100.0); MONOCYTES 11.5 %; MPV 10.3 fl. (7.2-11.1); NUCLEATED RBCS 0 /100WBC; PLATELET COUNT* 119 thou/uL (150-400); POLYS 61.8 %; RBC 2.25 mil/uL (4.50-6.00); RDW-CV 17.3 % (10.5-14.5); WBC 12.2 thou/uL (4.0-11.0)
[2019-08-22 06:21] LABS: HEMATOCRIT 19.9 % (42.0-52.0); HEMOGLOBIN 6.8 gm/dL (14.0-18.0)
[2019-08-22 06:37] LABS: CALCIUM 7.7 mg/dL (8.5-10.1); POTASSIUM 3.4 mmol/L (3.5-5.1)
--- NOTE | 2019-08-22 13:56 | NUR ---
WOUND NURSE: PATIENT SEEN FOR WOUND VAC DRESSING CHANGE -- SEE INTERVENTION. EARLY GRANULATION TISSUE IN WOUND BED ALONG WITH EXPOSED BONE IN THE DEEPEST PART OF THE WOUND. MODERATE AMOUNT OF SEROUSANGUINOUS DRAINAGE IN THE CANNISTER. INSIGNIFICANT CHANGE IN WOUND CHARACTERISTICS SINCE LAST DRESSING CHANGE 2 DAYS AGO. PATIENT WAS POSITIONED FROM HIS LEFT TO HIS RIGHT SIDE FOLLOWING DRESSING CHANGE. PATIENT REMAINS NONTEACHEABLE.
--- NOTE | 2019-08-22 15:05 | NUR ---
ASSUMED PT CARE REPORT RECEIVED. PT IS ALERT AND AWAKE. UNABLE TO ASSESS ORIENTATION BECAUSE PT IS NON-VERBAL. PT WSA REPOSITIONED. PT NEEDS BLLOD TRANSFUSION WHICH STARTED AT 08:00. VS HAS BEEN STABLE DURING BLOOD TRANSFUSION TIME. TEMP WAS 99.4 BEFORE TRANSFUSION AND 99.6 AFTER TRANSFUSION. NO FURTHER COMPLAINT FROM PT. AND NO ABNORMALITY WAS OBSERVED. IV ANTIBIOTIC HANGED AFTER BLOOD PRODUCT WAS FINISHED. WOUND VAC IN PLACE. NOLASCO IN PLACE. PT WAS SEEN BY THE WOUND CARE NURSE FOR DRESSING CHANGE THIS SHIFT. MEDICATION GIVEN CRUSHED IN APPLE SAUCE AT BREAKFAST TIME. PT WAS FED BREAKFAST. VSS. COLOSTOMY BAG IN PLACE. DARK GREEN STOOL OUTPUT. ISOLATION IN PLACE. HEMOGLOBIN WAS 8.6 AFTER BLOOD TRANSFUSION. CALL LIGHT AT REACH, AT BEDSIDE. SCOTTIE CONTINUE TO MONITOR PT.
--- NOTE | 2019-08-22 16:04 | NUR ---
Per SO, plan dc home once medically stable, SO states that ID told her likely dc to home on Sunday. [facility]. If Pt dc over the weekend, fax facesheet, H&P and orders to [phone]. SO has ivis friedman.
--- NOTE | 2019-08-22 17:53 | NUR ---
HGB BACK UP TO 8.6
[2019-08-23] VITALS: BP 129/47
[2019-08-23 04:00] VITALS: BP 130/60
--- NOTE | 2019-08-23 05:54 | NUR ---
Pt had low-grade fever of 99.5 and 99.7 at 2000 and 0000 respectively. 650 mg tylenol was administered twice. After second administration on reassessment temperature had decreased to 98.2. Pt is aox1, running SR on telemetry, respirations are even and unlabored on room air. Expiratory wheezes can be heard on auscultation. Pt is medically stable at this time.
[2019-08-23 08:00] VITALS: BP 125/47
[2019-08-23 08:02] LABS: ABSOLUTE BASOPHILS 0.1 thou/uL (0.0-0.2); ABSOLUTE EOSINOPHILS 0.8 thou/uL (0.0-0.7); ABSOLUTE LYMPHOCYTES 2.4 thou/uL (0.8-5.3); ABSOLUTE MONOCYTES 1.2 thou/uL (0.0-1.2); ABSOLUTE NEUTROPHILS 6.3 thou/uL (1.6-8.1); BASOPHILS 0.8 %; EOSINOPHILS 7.2 %; HEMATOCRIT 24.5 % (42.0-52.0); HEMOGLOBIN 8.3 gm/dL (14.0-18.0); LYMPHOCYTES 22.3 %; MCH 30.3 pg (26.0-34.0); MCV 88.9 fL (80.0-100.0); MONOCYTES 11.2 %; MPV 8.7 fl. (7.2-11.1); NUCLEATED RBCS 0 /100WBC; PLATELET COUNT* 161 thou/uL (150-400); POLYS 58.5 %; RBC 2.75 mil/uL (4.50-6.00); RDW-CV 18.1 % (10.5-14.5); WBC 10.8 thou/uL (4.0-11.0)
[2019-08-23 08:25] LABS: CALCIUM 7.7 mg/dL (8.5-10.1); POTASSIUM 3.7 mmol/L (3.5-5.1)
[2019-08-23 12:00] VITALS: BP 138/62
[2019-08-23 16:00] VITALS: BP 158/63
[2019-08-23 20:00] VITALS: BP 131/54
[2019-08-24] VITALS: BP 137/81
[2019-08-24 04:00] VITALS: BP 140/45
--- NOTE | 2019-08-24 06:43 | NUR ---
Pt had low-grade fever of 99.9 at 2000. 650 mg tylenol po was administered. On reassessment temperature was 98.8. Pt has had a moderate amount of oral secretions and has required multiple suctions this shift. Pt is aox1, running 1st degree AV block w/ PVCs on telemetry. Pt is on room air, but has audible expiratory wheezes. Pt is medically stable at this time.
[2019-08-24 08:00] VITALS: BP 131/56
[2019-08-24 14:17] VITALS: BP 131/51
[2019-08-24 16:00] VITALS: BP 110/62
[2019-08-24 19:30] VITALS: BP 129/54
[2019-08-25 00:29] VITALS: BP 134/34
[2019-08-25 05:39] VITALS: BP 104/44; BP 150/60
[2019-08-25 08:00] VITALS: BP 138/59
--- NOTE | 2019-08-25 09:01 | NUR ---
WOUND NURSE: TEX SEEN FOR FOLLOW UP WOUND CARE FOLLOWS: REMOVED WOUND VAC DRESSING, CLEANSED WITH SOAP AND WATER, RINSD WITH WATER, THEN PATTED DRY. IRRIGATED WOUND USING NORMAL SALINE. APPLIED SKIN PREP TO INTACT PERIWOUND TISSUE. THEN APPLIED WOUND VAC DRESSING PER PROTOCAL USING SKIN PREP, GRANUFOAM, TRANSPARENT DRAPE, AND TRAC PAD. BRIDGED GRANUFOAM WITH TRAC PAD TO ANTERIOR THIGH. VACULTA SETTINGS: 125MMHG CONTIINUOUS NEG PRESSURE, INTENSITY HIGH. PATIENT IS CONFUSED AND NON-VERBAL. PATIENT HAS [facility] HERE FOR DISCHARGE AND PLAN TO SWITCH TO THIS WHEN ACTUALLY DISCHARGES. WOUND PRESENTS FOLLOWS: 3.3 X 1.5 X 1.2 CM WITH 1.4 CM UNDERMINING FROM 9 TO 5 O'CLOCK. WOUND BED WITH NEARLY 100% RED GRANULATION TISSUE AND SCANT AMOUNT OF EXPOSED BONE IN CENTERMOST PART OF WOUND. THERE IS NO PERIWOUND REDNESS, WARMTH, INDURATION. THERE IS NO ODOR ASSOCIATED WITH THE WOUND.
[2019-08-25 09:13] VITALS: BP 104/44
--- NOTE | 2019-08-25 09:27 | NUR ---
CM spoke with ID, Pt will need home ivabx at co, CM faxed referral to [facility] to check the cost of zosyn, awaiting call back with cost. [facility] p:[phone] f:[phone]
[2019-08-25 12:20] VITALS: BP 104/44
--- NOTE | 2019-08-25 13:12 | NUR ---
ASSUMED PT CARE AT 0730, PT RESTING IN BED AND NON-VERBAL. PT HAS COCCYX WOUND THAT WAS BEING CHANGED BY WOUND CARE NURSETYLER. COLOSTOMY TO L ABD NOTED TO BE FULL AND CHANGED BY THIS RN AND WOUND CARE NURSE TODAY. PT IS BEING TURNED Q2H DURING THIS SHIFT AND GOAL IS TO HAVE PICC LINE PLACED SO PT CAN CONTINUE TO HAVE IV ABX AT HOME. PT'S CONTACTED AND SHE STATES SHE IS COMFORTABLE W/ DOING THIS. AM ASSESSMENT CHARTED, MEDS PER MAR, HOURLY ROUNDING OBSERVED, CALL LIGHT W/IN REACH, FALL PRECAUTIONS IN PLACE, WILL CONTINUE POC.
[2019-08-25 15:41] VITALS: BP 104/44
[2019-08-25] MEDS ORDERED: ZOSYN 3.373.375 GM/1 IV ×2 (16:13)
--- NOTE | 2019-08-25 17:53 | NUR ---
DC ORDERS RECEIVED. DC INSTRUCTIONS, CARE NOTES, SCRIPTS AND F/U APPTS GIVEN TO PT'S AND PT, PT IS NON-VERBAL SO PT'S COMMUNICATES UNDERSTANDING OF DC TEACHING. IV AND WEIGHT CONTROL LECTURER REMOVED BUT PT SENT HOME W/ JONN MIDLINE FOR IV ZOSYN TO BE ADMINSTERED AT HOME W/ HOME HEALTH OR . PT SENT BY OWN PERSONAL WC W/ NURSING STAFF AND TO 'S PERSONAL VEHICLE AT APPROX 1735.
--- NOTE | 2019-09-07 08:28 | CON ---
[address] [address] CONSULTATION Name: GIANCARLODENIS Salomon Room: [address] IN M.R.#: [id number] Admission: 08/17/19 Attend Phys: Erika Coburn MD Discharge: 08/25/19 Date of : 42 Report #: [id number] THIS REPORT FOR: //name// cc: Ezekiel Arevalo MD, David L. MD ~ THIS REPORT FOR: //name// CC: Ezekiel Coburn DATE OF SERVICE: 08/18/2019 HISTORY OF PRESENT ILLNESS: This is a pleasant 79-year-old gentleman who was brought in by his significant other for black-colored stools. The patient has a past medical history significant for traumatic brain injury and is nonverbal at baseline. He also has a sacral decubitus ulcer, which is stage 4 with surrounding cellulitis. The patient's significant other reports that he was placed on Zyvox for antimicrobial therapy and a few days into the course, she noted dark colored stools. When the stools persisted for 2 days, she contacted his primary care doctor, Dr. Arevalo, who recommended hospitalization. The patient cannot precisely describe any symptoms since he is nonverbal. No overt symptoms of hematemesis or hematochezia. PAST MEDICAL HISTORY: Traumatic brain injury, decubitus ulcer stage 4, hypertension, right carotid endarterectomy, and bladder cancer. PAST SURGICAL HISTORY: Right toe amputation. The patient had a colostomy placed to divert feces from the sacral decubitus ulcer. FAMILY HISTORY: Not relevant. SOCIAL HISTORY: The patient has no prior history of recreational drug use or smoking and remote history of alcohol use. REVIEW OF SYSTEMS: A comprehensive 10-point review of systems is negative because we are unable to obtain because of the patient's mental status. PHYSICAL EXAMINATION: VITAL SIGNS: Temperature 37.6, pulse rate 81, respirations 16, and blood pressure 118/46. GENERAL: The patient is alert, awake, oriented x0, nonverbal, does not respond, cannot follow commands. HEENT: Pupils are equal and round. Mucous membranes are moist. There is no congestion. LUNGS: Clear to auscultation bilaterally. CARDIOVASCULAR: Rate and rhythm regular, S1, [place] [address] CONSULTATION Name: DENIS MONDRAGON Room: [address] [place] [facility].#: [id number] Admission: 08/17/19 Attend Phys: Erika Coburn MD Discharge: 08/25/19 Date of : 42 Report #: [id number] ABDOMEN: Soft. There is no distention, guarding or rigidity. EXTREMITIES: No edema. SKIN: Warm and dry. No icterus. LABORATORY DATA: Hemoglobin 8.0, hematocrit 24.2, WBC count 8.8, and platelet count 88. Sodium 145, potassium 5.1, chloride 108, bicarbonate 26, BUN 48, creatinine 1.5, total bilirubin 0.3, AST 44, ALT 50, and alkaline phosphatase 108. IMAGING: CT abdomen and pelvis, mild basilar atelectasis, lower left quadrant colostomy and mucous fistula, peristomal herniation contains large amount of retained stool consistent with constipation ____. ASSESSMENT AND PLAN: A pleasant 79-year-old gentleman with past medical history of traumatic brain injury, nonverbal at baseline, who is presenting for evaluation of melena. 1. Melena. We will proceed with EGD for further evaluation. Given his mental status, consent should be obtained from this DPOA. Okay to resume diet for now. Keep him n.p.o. after midnight. 2. Constipation. The patient appears to have chronic constipation on the CT scan, I would recommend starting him on daily MiraLax once the EGD is complete. Thank you for this consultation. <ELECTRONICALLY SIGNED> By: Tate Kapadia MD 09/07/19 0828 1834 [id number] Kapadia MD /nt
== END 2019-08-25 17:37 | disposition home health service (06) | DRG 871 ==
LOC: M.ERS 13:08 → M.TBA-ER 15:14 → M.2W 15:14
PROVIDERS: Family Medicine; Internal Medicine; ADMIT Internal Medicine; ATTEND Internal Medicine
DX: A41.89 Other specified sepsis (principal); L89.154 Pressure ulcer of sacral region, stage 4; N17.0 Acute kidney failure with tubular necrosis; G93.41 Metabolic encephalopathy; G82.50 Quadriplegia, unspecified; E43 Unspecified severe protein-calorie malnutrition; T83.510A Infection and inflammatory reaction due to cystostomy catheter, initial encounter; K92.1 Melena; N39.0 Urinary tract infection, site not specified; Z68.1 Body mass index [BMI] 19.9 or less, adult; Z16.12 Extended spectrum beta lactamase (ESBL) resistance; I95.9 Hypotension, unspecified; B96.5 Pseudomonas (aeruginosa) (mallei) (pseudomallei) as the cause of diseases classified elsewhere; Y83.8 Other surgical procedures as the cause of abnormal reaction of the patient, or of later complication, without mention of misadventure at the time of the procedure; K31.7 Polyp of stomach and duodenum; D50.0 Iron deficiency anemia secondary to blood loss (chronic); E78.5 Hyperlipidemia, unspecified; I10 Essential (primary) hypertension; Y92.89 Other specified places as the place of occurrence of the external cause; Z87.820 Personal history of traumatic brain injury; Z85.51 Personal history of malignant neoplasm of bladder; Z89.421 Acquired absence of other right toe(s); Z79.899 Other long term (current) drug therapy; Z87.891 Personal history of nicotine dependence

== ENCOUNTER → 2019-09-02 | Outpatient (CLI) | payer BC ==
[~2019-09-02] MED LIST changes: +NORVASC 2.5 MG2.5 M1 PO; +ZOSYN 3.373.375 GM/1 IV; +ZYVOX600 MG PO
[2019-09-02 14:08] LABS: ABSOLUTE BASOPHILS 0.1 thou/uL (0.0-0.2); ABSOLUTE EOSINOPHILS 0.8 thou/uL (0.0-0.7); ABSOLUTE LYMPHOCYTES 2.1 thou/uL (0.8-5.3); ABSOLUTE MONOCYTES 0.9 thou/uL (0.0-1.2); ABSOLUTE NEUTROPHILS 7.1 thou/uL (1.6-8.1); BASOPHILS 0.9 %; EOSINOPHILS 7.6 %; HEMATOCRIT 37.3 % (42.0-52.0); HEMOGLOBIN 12.3 gm/dL (14.0-18.0); LYMPHOCYTES 19.1 %; MCH 30.8 pg (26.0-34.0); MCV 93.5 fL (80.0-100.0); MONOCYTES 8.5 %; MPV 7.8 fl. (7.2-11.1); NUCLEATED RBCS 0 /100WBC; PLATELET COUNT* 412 thou/uL (150-400); POLYS 63.9 %; RBC 3.99 mil/uL (4.50-6.00); RDW-CV 19.2 % (10.5-14.5); WBC 11.1 thou/uL (4.0-11.0)
[2019-09-02 14:26] LABS: CALCIUM 9.4 mg/dL (8.5-10.1); CREATININE 1.1 mg/dL (0.6-1.3); POTASSIUM 4.2 mmol/L (3.5-5.1)
[2019-09-02 14:31] LABS: ALBUMIN 3.6 g/dL (3.4-5.0); TOTAL BILIRUBIN 0.4 mg/dL (<0.1-1.0); TOTAL PROTEIN 7.1 g/dL (6.4-8.2)
[2019-09-02 15:19] LABS: ESR (SEDRATE) 66 mm/hr (0-20)
== END ==
LOC: M.WC 08-26 13:30
PROVIDERS: ATTEND Emergency Medicine Undersea and Hyperbaric Medicine
DX: L89.154 Pressure ulcer of sacral region, stage 4 (principal); I10 Essential (primary) hypertension; Z87.820 Personal history of traumatic brain injury; Z85.51 Personal history of malignant neoplasm of bladder

== ENCOUNTER → 2019-09-09 | Outpatient (CLI) | payer BC ==
[2019-09-09 13:48] LABS: HEMATOCRIT 37.9 % (42.0-52.0); HEMOGLOBIN 12.7 gm/dL (14.0-18.0); MCH 31.1 pg (26.0-34.0); MCHC 33.5 g/dL (28.0-37.0); MCV 92.8 fL (80.0-100.0); MPV 8.1 fl. (7.2-11.1); RBC 4.08 mil/uL (4.50-6.00); RDW-CV 17.8 % (10.5-14.5); WBC 9.5 thou/uL (4.0-11.0)
[2019-09-09 14:17] LABS: CREATININE 0.9 mg/dL (0.6-1.3); POTASSIUM 4.5 mmol/L (3.5-5.1)
[2019-09-09 14:22] LABS: ALBUMIN 3.5 g/dL (3.4-5.0); CALCIUM 9.2 mg/dL (8.5-10.1); TOTAL BILIRUBIN 0.2 mg/dL (<0.1-1.0); TOTAL PROTEIN 7.3 g/dL (6.4-8.2)
== END ==
LOC: M.WC 04:05
PROVIDERS: ATTEND Emergency Medicine Undersea and Hyperbaric Medicine
DX: L89.154 Pressure ulcer of sacral region, stage 4 (principal); I10 Essential (primary) hypertension; Z87.820 Personal history of traumatic brain injury; Z85.51 Personal history of malignant neoplasm of bladder

== ENCOUNTER → 2019-10-07 | Outpatient (CLI) | payer BC | LOC: M.WC 02:23 | PROVIDERS: ATTEND Emergency Medicine Undersea and Hyperbaric Medicine | DX: L89.154 Pressure ulcer of sacral region, stage 4 (principal); I10 Essential (primary) hypertension; Z87.820 Personal history of traumatic brain injury; Z85.51 Personal history of malignant neoplasm of bladder ==

== ENCOUNTER → 2019-10-28 | Outpatient (CLI) | payer BC | LOC: M.WC 10-21 13:00 | PROVIDERS: ATTEND Emergency Medicine Undersea and Hyperbaric Medicine | DX: L89.154 Pressure ulcer of sacral region, stage 4 (principal); I10 Essential (primary) hypertension; Z87.820 Personal history of traumatic brain injury; Z85.51 Personal history of malignant neoplasm of bladder ==

== ENCOUNTER → 2019-11-11 | Outpatient (CLI) | payer BC | LOC: M.WC 03:55 | PROVIDERS: ATTEND Emergency Medicine Undersea and Hyperbaric Medicine | DX: L89.154 Pressure ulcer of sacral region, stage 4 (principal); I10 Essential (primary) hypertension; Z87.820 Personal history of traumatic brain injury; Z85.51 Personal history of malignant neoplasm of bladder ==

== ENCOUNTER 2019-11-19 20:49 | Inpatient (IN) | payer BC ==
[~2019-11-19] VITALS: Ht 172.7 cm; Wt 90.7 kg
[2019-11-19 21:04] VITALS: BP 84/37
[2019-11-19 22:37] LABS: HEMATOCRIT 35.5 % (42.0-52.0); HEMOGLOBIN 11.6 gm/dL (14.0-18.0); MCH 28.2 pg (26.0-34.0); MCHC 32.8 g/dL (28.0-37.0); MCV 86.1 fL (80.0-100.0); MPV 9.3 fl. (7.2-11.1); NUCLEATED RBCS 0 /100WBC; PLATELET COUNT* 238 thou/uL (150-400); RBC 4.13 mil/uL (4.50-6.00); RDW-CV 16.7 % (10.5-14.5); WBC 27.2 thou/uL (4.0-11.0)
[2019-11-19 22:43] LABS: CALCIUM 10.2 mg/dL (8.5-10.1); CREATININE 2.2 mg/dL (0.6-1.3); POTASSIUM 4.9 mmol/L (3.5-5.1)
[2019-11-19 22:45] LABS: PROTIME 10.6 Seconds (9.20-11.50)
[2019-11-19 22:54] LABS: ALBUMIN 2.6 g/dL (3.4-5.0); MAGNESIUM 2.6 mg/dL (1.8-2.4); TOTAL BILIRUBIN 0.3 mg/dL (<0.1-1.0); TOTAL PROTEIN 7.4 g/dL (6.4-8.2)
[2019-11-19 23:11] LABS: ABSOLUTE EOSINOPHILS 0.3 thou/uL (0.0-0.7); ABSOLUTE LYMPHOCYTES 3.5 thou/uL (0.8-5.3); ABSOLUTE MONOCYTES 1.9 thou/uL (0.0-1.2); ABSOLUTE NEUTROPHILS 21.5 thou/uL (1.6-8.1); PLATELET ESTIMATE ADEQUATE
[2019-11-19 23:27] LABS: URINE BILIRUBIN NEGATIVE (Negative); URINE BLOOD 3+ (Negative); URINE COLOR YELLOW; URINE GLUCOSE-RANDOM NEGATIVE (Negative); URINE KETONES NEGATIVE (Negative); URINE NITRITE-REFLEX NEGATIVE (Negative); URINE PROTEIN 3+ (Negative); URINE SPECIFIC GRAVITY 1.025 (1.005-1.030); URINE UROBILINOGEN 0.2 E.U./dl (0.2-1.0)
[2019-11-19 23:32] LABS: URINE CLARITY CLOUDY; URINE LEUKOCYTES-REFLEX 3+ (Negative)
[2019-11-19 23:38] LABS: BACTERIA-REFLEX >30 Many /HPF (None Seen); MUCUS 4-6 Moderate strn/LPF (None Seen); SQUAMOUS 0-3 Few /LPF (0-3); URINE WBC-REFLEX >25 Many /HPF (0-5); WBC CLUMPS Moderate (None Seen)
[2019-11-19 23:39] LABS: CELLULAR CASTS 0-3 Few /LPF (None Seen); COARSE GRANULAR CASTS 0-3 Few /LPF (None Seen); CRYSTALS None Seen /LPF (None Seen); FINE GRANULAR CASTS 0-3 Few /LPF (None Seen)
[2019-11-20 03:33] VITALS: BP 105/37
--- NOTE | 2019-11-20 05:26 | NUR ---
RECEIVED REPORT AND ASSUMED CARE OF PT AT 0345. FULL ASSESSMENT COMPLETED CHARTED. BED LOCKED AND IN LOW POSITION, CALL LIGHT AND PERSONAL ITEMS IN REACH. NO ACUTE CHANGES THIS SHIFT.
[2019-11-20 08:00] VITALS: BP 77/52
[2019-11-20 09:00] VITALS: BP 70/40
[2019-11-20 10:00] VITALS: BP 92/37
[2019-11-20 11:31] LABS: MAGNESIUM 2.4 mg/dL (1.8-2.4); PHOSPHORUS* 4.8 mg/dL (2.5-4.9)
--- NOTE | 2019-11-20 11:54 | EKG ---
[place] [address] ELECTROCARDIOGRAM REPORT Name: DENIS MONDRAGON Room: [address] ADM IN .R.#: [id number] Admission: 11/20/19 Attend Phys: Cain Tamayo, Discharge: Date of : 42 Date of Service: 11/19/19 2226 Report #: [id number] THIS REPORT FOR: //name// [facility] ED Test Date: 2019-11-19 Test Time: 22:26:31 Pat Name: DENIS MONDRAGNO Department: Room: [facility] Gender: M Medical Cash Poster: ANY : 1940 Requested By: Roma Chau Order Number: [id number] MD: Dc Ware Measurements Intervals [place] Rate: 76 P: -55 WA: 194 QRS: -14 QRSD: 79 T: 106 QT: 349 QTc: 393 Interpretive Statements Sinus or ectopic atrial rhythm Abnormal T, consider ischemia, lateral leads Compared to ECG 08/17/2019 13:21:33 Myocardial infarct finding no longer present T-wave abnormality still present Possible ischemia still present Electronically Signed On 11-20-2019 11:54:24 CDT by Dc Ware [email or web address] <ELECTRONICALLY SIGNED> By: Dc Ware MD, FAC 11/20/19 1154 2226 2226 Dc Ware MD, [facility] /EPI
--- NOTE | 2019-11-20 12:19 | NUR ---
ASSUMED CARE OF PATIENT THIS AM AT 0730. PATIENT IS NON RESPONSIVE VERBALLY. HIS BP WAS VERY LOW THIS AM. DR BURTON NOTIFIED. 500 ML FLUID BOLUS GIVEN. HIS BP WAS RETAKEN AND HIS BP WAS STILL LOW. 2ND IV FLUID BOLUS GIVEN. PATIENT'S BP CONTINUES LOW. DR BURTON NOTIFIED. TELE SHOWS SR WITH 1DAVB. WILL CONTINUE TO MONITOR.
--- NOTE | 2019-11-20 15:28 | 2DMMODE ---
[place] [address] 2 D/M-MODE ECHOCARDIOGRAM Name: GIANCARLOJUVENTINOE Salomon Room: [address] IN .R.#: [id number] Admission: 11/20/19 Attend Phys: Cain Tamayo, Discharge: Date of : 42 Date of Service: 11/20/19 1527 Report #: [id number] THIS REPORT FOR: cc: Ezekiel Arevalo MD, David L. MD [place], Michael J. MD [facility] ~ APPROVED REPORT Study performed: 11/20/2019 11:52:43 EXAM: Comprehensive 2D, Doppler, and color-flow Echocardiogram Patient Location: In-Patient Room #: 226 Status: routine BSA: 1.95 HR: 75 bpm BP: 105/37 mmHg Rhythm: NSR Other Information Study Quality: Good Indications Aortic Valve Disease 2D Dimensions IVSd: 11.72 (7-11mm) LVOT Diam: 16.70 (18-24mm) LVDd: 39.37 mm PWd: 13.50 (7-11mm) LVDs: 22.22 (25-40mm) Aortic Root: 22.30 mm Volumes Left Atrial Volume (Systole) LA ESV Index: 17.20 mL/m2 Aortic Valve AoV Peak Nate.: 4.22 m/s AO Peak Gr.: 71.08 mmHg LVOT Max P.26 mmHg AO Mean Gr.: 44.40 mmHg LVOT Mean P.48 mmHg LVOT Max V: 1.03 m/s AO V2 VTI: 84.38 cm LVOT Mean V: 0.74 m/s HENRIETTA (VTI): 0.63 cm2 LVOT V1 VTI: 24.21 [place] [address] 2 D/M-MODE ECHOCARDIOGRAM Name: DENIS MONDRAGON Room: [address] IN .R.#: [id number] Admission: 11/20/19 Attend Phys: Cain Tamayo, Discharge: Date of : 42 Date of Service: 11/20/19 1527 Report #: [id number] Mitral Valve MV Mean Gr.: 3.48 mmHg E/A Ratio: 0.74 MV Decel. Time: 275.20 ms MV E Max Nate.: 0.97 m/s MV PHT: 79.81 ms MVA (PHT): 2.76 cm2 TDI E/Lateral E': 12.13 E/Medial E': 12.13 Medial E' Nate.: 0.08 m/s Lateral E' Nate.: 0.08 m/s Left Ventricle The left ventricle is normal size. There is normal LV segmental wall motion. There is normal left ventricular wall thickness. Left ventricular systolic function is normal. LVEF is 60-65%. Grade I - abnormal relaxation pattern. Right Ventricle The right ventricle is normal size. The right ventricular systolic function is normal. Atria The left atrium size is normal. The right atrium size is normal. Aortic Valve The Aortic valve is sclerotic. No aortic regurgitation is present. Severe aortic stenosis. Mitral Valve There is mitral annular calcification. There is no mitral valve regurgitation noted. No evidence of mitral valve stenosis. Tricuspid Valve The tricuspid valve is normal in structure. Trace tricuspid regurgitation. Pulmonic Valve The pulmonary valve is normal in structure. There is no pulmonic valvular regurgitation. Great Vessels The aortic root is normal in size. IVC is normal in size and collapses >50% [place] [address] 2 D/M-MODE ECHOCARDIOGRAM Name: DENIS MONDRAGON Room: [address] IN [facility]#: [id number] Admission: 11/20/19 Attend Phys: Cain Tamayo, Discharge: Date of : 42 Date of Service: 11/20/19 1527 Report #: [id number] Pericardium There is no pericardial effusion. <Conclusion> The left ventricle is normal size. There is normal left ventricular wall thickness. Left ventricular systolic function is normal. LVEF is 60-65%. Grade I - abnormal relaxation pattern. The Aortic valve is sclerotic. Severe aortic stenosis. There is mitral annular calcification. Trace tricuspid regurgitation. IVC is normal in size and collapses >50% with inspiration. <ELECTRONICALLY SIGNED> By: Scooter Guaman MD, FACC 11/20/19 1527 1527 1527 Scooter Guaman MD, FACC /INF
--- NOTE | 2019-11-20 15:41 | NUR ---
WOUND NURSE: PATIENT SEEN TO ADDRESS SACROCOCCYGEAL STAGE 4 PRESSURE INJURY AND SUSPECTED DEEP TISSUE INJURIES ON LEFT ISCHIUM, RIGHT HIP, RIGHT THIGH. SACROCOCCYGEAL WOUND MEASURES 5.0 X 3.5 X 2.5 CM AND HAS 3.0 CM UNDERMINING FROM 7 TO 5 O'CLOCK. THERE IS MODERATE AMOUNT OF SEROUSANGUINOUS DRAINAGE. THERE IS NO ODOR. WOUND BED WTIH EXPOSED BONE AND DARK RED NONGRANULATING TISSUE. CLEANSED WITH SOAP AND WATER, RINSED, THEN PATTED DRY. APPLIED DUODERM TO PERIWOUND EXCORIATED TISSUE, THEN WOUND VAC DRESSING USING GRANUFOAM, TRAC PAD, AND TRANSPARENT DRAPE PER PROTOCAL AND SET AT 150MMHG CONTINUOUS NEG PRESSURE AND INTENSITY HIGH. PATIENT WITH LARGE AREA OF SUSPECTED DEEP TISSUE INJURY ON RIGHT POSTERIOR THIGH MEASUREING 8.0 X 12.0 CM. THIS IS PURPLE AND NONBLANCHEABLE. RIGHT HIP MEASURES 2.5 X 3.5 CM AND LEFT ISCHIUM MEASURES 2.5 X 3.0 CM. PLAN TO TREAT WITH VENELEX WHEN AVAILABLE FROM PHARMACY. PATIENT WAS ADMITTED WITH THESE WOUNDS AND HAD BEEN SEEN IN WOUND CARE CENTER PRIOR TO HOSPITALIZATION. SUSPECTED DEEP TISSUE INJURIES ARE NOT OPEN OR DRAIING. PATIENT IS NOT TEACHABLE AND FAMILY NOT HERE WHEN ASSESSED.
[2019-11-20 17:23] LABS: CALCIUM 9.1 mg/dL (8.5-10.1); CREATININE 1.4 mg/dL (0.6-1.3); POTASSIUM 4.8 mmol/L (3.5-5.1)
[2019-11-20 17:46] VITALS: BP 81/31
[2019-11-20 19:20] VITALS: BP 83/35
[2019-11-21] VITALS: BP 85/32
[2019-11-21 04:00] VITALS: BP 100/35
[2019-11-21 08:00] VITALS: BP 113/43; BP 98/59
[2019-11-21 12:11] VITALS: BP 102/33
--- NOTE | 2019-11-21 12:44 | NUR ---
CM spoke with Pt's SO, Evelina, via phone. Pt is total care, Evelina provides all of Pt's cares. Pt has a power wc, hospital bed and sit to stand at home, SO has a wc for transport. Hx of [facility]. Hx of [facility]. SO phoned CM yesterday regarding palliative care and requested that CM contact [facility], CM faxed referral and requested that they contact SO to discuss palliative option. Goal is home. Following.
--- NOTE | 2019-11-21 13:15 | NUR ---
WOUND NURSE: FOLLOWED UP WITH PATIENT AND VERIFIED THAT WOUND VAC DRESSING IS INTACT AND FUNCTIONING PROPERLY. PATIENT HAD NOT RECEIVED LOW AIRLOSS MATTRESS, SO CALLED NURSING SEARCH MARKETING COORDINATOR AND SHE IS CONTACTING SHERYL REGARDEING THIS. PATIENT IS TBI AND NONTEACHEABLE.
[2019-11-21 16:09] VITALS: BP 95/44
--- NOTE | 2019-11-21 18:29 | NUR ---
PT COLOSTOMY EMPTIED, IT WAS WELL FORMED, HARD TO GET OUT OF BAG
[2019-11-21 20:19] VITALS: BP 123/41
[2019-11-22] VITALS: BP 108/46
[2019-11-22 04:07] VITALS: BP 100/50
[2019-11-22 08:15] VITALS: BP 130/32
--- NOTE | 2019-11-22 08:25 | NUR ---
PT IS ABLE TO COMMUNICATE HIS NEEDS TO STAFF VERY INFREQUENTLY; HE IS MOSTLY NON-VERBAL BUT CAN MAKE SOME SLIGHT JESTURES THAT INDICATE WHAT HE MAY WANT. HE HAS NOT APPEARED TO BE IN PAIN DURING PRESSURE DISPATCHER AND SLEPT QUITE A BIT. WOUND VAC IS INTACT OF 0700 TODAY. COLOSTOMY AND NOLASCO ARE BOTH PATENT OF 0700 TODAY. CONTACT ISOLATION MAINTAINED. HE HAS BEEN NPO UP TO 0700 TODAY.
[2019-11-22 11:36] LABS: ABSOLUTE BASOPHILS 0.1 thou/uL (0.0-0.2); ABSOLUTE EOSINOPHILS 0.7 thou/uL (0.0-0.7); ABSOLUTE LYMPHOCYTES 1.6 thou/uL (0.8-5.3); ABSOLUTE MONOCYTES 0.7 thou/uL (0.0-1.2); ABSOLUTE NEUTROPHILS 4.9 thou/uL (1.6-8.1); BASOPHILS 0.9 %; EOSINOPHILS 8.3 %; HEMATOCRIT 28.5 % (42.0-52.0); HEMOGLOBIN 9.7 gm/dL (14.0-18.0); LYMPHOCYTES 20.4 %; MCH 28.9 pg (26.0-34.0); MCHC 34.1 g/dL (28.0-37.0); MCV 84.9 fL (80.0-100.0); MONOCYTES 8.8 %; MPV 8.6 fl. (7.2-11.1); NUCLEATED RBCS 0 /100WBC; PLATELET COUNT* 194 thou/uL (150-400); POLYS 61.6 %; RBC 3.36 mil/uL (4.50-6.00)
[2019-11-22 11:45] LABS: CALCIUM 8.4 mg/dL (8.5-10.1); POTASSIUM 3.8 mmol/L (3.5-5.1)
[2019-11-22 11:50] LABS: TOTAL BILIRUBIN 0.3 mg/dL (<0.1-1.0); TOTAL PROTEIN 6.1 g/dL (6.4-8.2)
[2019-11-22 12:30] VITALS: BP 92/27
[2019-11-22 15:58] VITALS: BP 95/23
--- NOTE | 2019-11-22 19:47 | NUR ---
I ASSUMED CARE OF THE PATIENT AT 0700. HE IS AWAKE, BUT ALERT AND ORIENTED TO ZERO AND NON-VERBAL. LEFT ARM IS CONTRACTED AND RIGHT ARM HAS A PICC, SO BLOOD PRESSURES ARE BEING DONE ON LOWER EXTREMITIES. HE IS BEING SEEN BY PT/OT. HE IS REPOSITIONED EVERY 2 HOURS. COLOSTOMY BAG EXPLODED AND WAS CHANGED ABOUT 1700, INCLUDING A BED BATH AND LINEN CHANGE. FLUIDS WERE STARTED AT 70/HR AND MAG CITRATE WAS GIVEN. ISOLATION WAS MAINTAINED. WOUNDVAC IS IN PLACE AND WORKING PROPERLY. CAREGIVER/GIRLFRIEND CAME TO SHAVE THE PATIENT AND FEED HIM. [facility]. PILLS CRUSHED IN APPLESAUCE OR PUDDING. NOLASCO OUTPUT IS GOOD. WILL CONTINUE TO MONITOR.
[2019-11-22 20:00] VITALS: BP 109/50
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
[2019-11-23 00:20] VITALS: BP 98/50
[2019-11-23 04:35] VITALS: BP 91/52
[2019-11-23 06:13] LABS: CALCIUM 8.1 mg/dL (8.5-10.1); POTASSIUM 3.8 mmol/L (3.5-5.1)
[2019-11-23 06:15] LABS: ABSOLUTE BASOPHILS 0.1 thou/uL (0.0-0.2); ABSOLUTE EOSINOPHILS 0.6 thou/uL (0.0-0.7); ABSOLUTE LYMPHOCYTES 1.6 thou/uL (0.8-5.3); ABSOLUTE MONOCYTES 0.7 thou/uL (0.0-1.2); ABSOLUTE NEUTROPHILS 4.8 thou/uL (1.6-8.1); BASOPHILS 1.2 %; EOSINOPHILS 7.4 %; HEMATOCRIT 27.5 % (42.0-52.0); HEMOGLOBIN 9.4 gm/dL (14.0-18.0); LYMPHOCYTES 20.1 %; MCH 28.6 pg (26.0-34.0); MCHC 34.1 g/dL (28.0-37.0); MCV 83.9 fL (80.0-100.0); MONOCYTES 9.5 %; MPV 8.9 fl. (7.2-11.1); NUCLEATED RBCS 0 /100WBC; PLATELET COUNT* 182 thou/uL (150-400); POLYS 61.8 %; RBC 3.27 mil/uL (4.50-6.00); RDW-CV 15.7 % (10.5-14.5); WBC 7.8 thou/uL (4.0-11.0)
[2019-11-23 08:15] VITALS: BP 112/68
[2019-11-23 12:35] VITALS: BP 117/52
[2019-11-23 15:51] VITALS: BP 125/54
--- NOTE | 2019-11-23 16:31 | NUR ---
Wound vac has alarmed several times this shift. Dressing dry/intact. No obstruction of tubing, clamps open. At 1430 I spoke with Ildefonso Alcantar who is resident for surgical consultants. Dressing removed, black sponge removed wound cleansed, aqua cell packing and dressing applied. This done by Maria E FOSTER/charge nurse.
--- NOTE | 2019-11-23 16:34 | NUR ---
Pt remains total care. Will open his eyes when his name is called. Able to swallow crushed meds which were mixed in applesauce. Pt unable to safely swallow his lunch and coughed frequently. Pt npo with message sent to hospitalist. Swallow evaluation ordered by Maria E FOSTER/charge.
--- NOTE | 2019-11-23 17:45 | NUR ---
CARING FOR PT [id number]. PT NON VERBAL, EYES NOT NOT FOLLOWING. LUNG SOUNDS RALES AND RHONCI WITH MOIST NON-PRODUCTIVE COUGH. SUCTION NEEDED. VERIFIED WITH ART PREPARATOR AND THAT PT NEEDS SUCTIONING BEFORE ANY MEALS AND THEN HAS NO PROBLEMS WITH SWALLOWING. DIET OF MECHANICAL CHOPPED REORDERED. TELEMETRY ON SHOWING SR.
[2019-11-23 20:00] VITALS: BP 104/43
[2019-11-24] VITALS: BP 123/52
[2019-11-24 04:00] VITALS: BP 99/49
[2019-11-24 06:05] LABS: ABSOLUTE BASOPHILS 0.1 thou/uL (0.0-0.2); ABSOLUTE EOSINOPHILS 0.6 thou/uL (0.0-0.7); ABSOLUTE LYMPHOCYTES 1.3 thou/uL (0.8-5.3); ABSOLUTE MONOCYTES 0.8 thou/uL (0.0-1.2); ABSOLUTE NEUTROPHILS 4.7 thou/uL (1.6-8.1); BASOPHILS 1.2 %; EOSINOPHILS 8.6 %; HEMATOCRIT 27.4 % (42.0-52.0); HEMOGLOBIN 9.3 gm/dL (14.0-18.0); LYMPHOCYTES 16.8 %; MCH 28.5 pg (26.0-34.0); MCHC 34.1 g/dL (28.0-37.0); MCV 83.7 fL (80.0-100.0); MONOCYTES 10.5 %; MPV 8.3 fl. (7.2-11.1); NUCLEATED RBCS 0 /100WBC; PLATELET COUNT* 170 thou/uL (150-400); POLYS 62.9 %; RBC 3.27 mil/uL (4.50-6.00); RDW-CV 15.9 % (10.5-14.5); WBC 7.5 thou/uL (4.0-11.0)
[2019-11-24 06:23] LABS: CREATININE 0.9 mg/dL (0.6-1.3); POTASSIUM 3.8 mmol/L (3.5-5.1); TOTAL BILIRUBIN 0.2 mg/dL (<0.1-1.0); TOTAL PROTEIN 5.8 g/dL (6.4-8.2)
[2019-11-24 08:00] VITALS: BP 114/51
[2019-11-24 12:00] VITALS: BP 153/61
--- NOTE | 2019-11-24 14:56 | NUR ---
CM INFORMED DURING PRIME ROUNDING OF THE NEED TO SEND REFERRAL TO LTAC FOR PT. PT HAS WOUND CARE NEEDS AND IV ABT'S. CM CONACTED PT'S DPOA EDEN AND SHE INFORMS THAT THE PT HAD BEEN TO LT[facility] AT [facility] IN THE PAST. EDEN WOULD LIKE TO SPEAK TO PHYSICIAN PRIOR TO MAKING ANY DECISION ABOUT LTAC. CM AWAITING RETURN CALL FROM EDEN TO DISCUSS FURTHER. CM WILL REMAIN AVAILABLE TO ASSIST AND FOLLOW NEEDED.
[2019-11-24 16:00] VITALS: BP 100/61
--- NOTE | 2019-11-24 16:41 | NUR ---
WOUND NURSE: WOUND VAC DRESSING REAPPLIED PER PROTOCAL -- SEE INTERVENTION FOR DETAILS.
--- NOTE | 2019-11-24 17:05 | NUR ---
ASSUMED PT CARE AT 0730, PT AWAKE BUT NONVERBAL AND UNABLE TO ANSWER QUESTIONS IN ANY WAY. PT BEING TURNED Q2H TO PREVENT FURTHER SKIN BREAKDOWN, ALREDY HAS WOUNDS PER CHART. 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 PT IN ROOM THIS AFTERNOON AND UPDATED ON POC. NOLASCO IN PLACE FOR RTN, CHRONIC FOR PT, PENILE TEAR FROM NOLASCO NOTED. PT GOAL IS TO REMAIN FREE FROM FURTHER SKIN BREAKDOWN AND KEEP AIRWAY CLEAR. SUCTION IN ROOM AND USED ONCE TODAY AFTER EATING LUNCH. AM ASSESSMENT CHARTED, MEDS PER MAR, HOURLY ROUNDING OBSERVED, FALL PRECAUTIONS IN PLACE, CALL LIGHT W/IN REACH.
[2019-11-24 20:00] VITALS: BP 103/51
[2019-11-25] VITALS: BP 121/62
[2019-11-25 04:00] VITALS: BP 118/59
[2019-11-25 08:00] VITALS: BP 110/51
--- NOTE | 2019-11-25 10:20 | NUR ---
CM INFORMED BY THE PHYSICIAN THAT THE PT'S DPOA REQUEST REFERRAL BE SENT TO [facility] CM SPOKE TO ELIJAH WITH [facility] [address] TO INFORM OF THE REFERRAL AND FAXED PT'S CLINICAL INFO. CM WILL NEED TO DISCUSS WITH PHYSICIAN WHAT ABT WILL BE NEEDED AT D/C. CM AWAITING A RETURN CALL TO DISCUSS ABILTIY TO ACCEPT PT.
--- NOTE | 2019-11-25 11:32 | NUR ---
REPORT GIVEN TO KRISTIN MATTHEWS
[2019-11-25 11:43] VITALS: BP 116/52
[2019-11-25 16:39] VITALS: BP 88/45
[2019-11-25 20:00] VITALS: BP 107/44
[2019-11-26] VITALS: BP 115/52; BP 94/54
[2019-11-26 05:24] LABS: HEMATOCRIT 27.5 % (42.0-52.0); HEMOGLOBIN 9.6 gm/dL (14.0-18.0); MCH 28.8 pg (26.0-34.0); MCHC 34.9 g/dL (28.0-37.0); MCV 82.5 fL (80.0-100.0); NUCLEATED RBCS 0 /100WBC; PLATELET COUNT* 184 thou/uL (150-400); RBC 3.33 mil/uL (4.50-6.00); RDW-CV 15.9 % (10.5-14.5); WBC 6.6 thou/uL (4.0-11.0)
[2019-11-26 05:44] LABS: ALBUMIN 2.1 g/dL (3.4-5.0); CALCIUM 8.2 mg/dL (8.5-10.1); CREATININE 0.9 mg/dL (0.6-1.3); POTASSIUM 3.8 mmol/L (3.5-5.1); TOTAL BILIRUBIN 0.2 mg/dL (<0.1-1.0); TOTAL PROTEIN 5.9 g/dL (6.4-8.2)
[2019-11-26 08:00] VITALS: BP 130/56
[2019-11-26 08:00] LABS: ABSOLUTE BASOPHILS 0.1 thou/uL (0.0-0.2); ABSOLUTE EOSINOPHILS 0.6 thou/uL (0.0-0.7); ABSOLUTE LYMPHOCYTES 2.5 thou/uL (0.8-5.3); ABSOLUTE MONOCYTES 0.4 thou/uL (0.0-1.2); ATYPICAL LYMPHS 2 %; PLATELET ESTIMATE ADEQUATE
--- NOTE | 2019-11-26 10:22 | NUR ---
WOUND NURSE: PATIENT SEEN TODAY FOR FOLLOW UP DRESSING CHANGE TO SACRUM POST DEBRIDEMENT BY PHYSICIAN, DR. JAIME. POST DEBRIDEMENT MEASUREMENTS OF SACRUM ARE 4.0 X 3.0 X 2.5 WITH 1.6 CM UNDERMINING FROM 3 TO 5 O'CLOCK. WOUND BED WITH RED, EARLY GRANULATION TISSUE AND SMAL AMOUNT OF EXPOSED MUSCLE AND BONE. MODERATE AMOUNT OF SEROUSANGUINOUS DRAIANGE IN CANNISTER, SMALL AMOUNT OF SANGUINOUS DRAINAGE POST DEBRIDEMENT. PHYSICIAN CAUTERIZED THE SUPERIOR EDGE OF THE WOUND WITH SILVER NITRATE POST DEBRIDEMENT. WOUND WAS CLEANSED WITH SOAP AND WATER, RINSED, THEN PATTED DRY. APPLIED WOUND VAC DRESSING PER PROTOCAL AND BRIDGED TO THE ANTERIOR THIGH. PLACED EXUDERM LP TO THE PERIWOUND TISSUE FOR PROTECTION AND PROMOTE HEALING FROM EXCORIATION. RIGHT POSTERIOR THIGH WAS ALSO DEBRIDED USING SCALPEL BY DR. YENI DO. THIS WAS CLEANSED ABOVE AND APPLIED VENELEX AND PROTECTED WITH OPTIFOAM GENTLE DRESSING. ABOVE PROCEDURES WERE TOLERATED WELL. RIGHT POSTERIOR THIGH MEASURED 5.0 X 5.5 X 0.1 CM. PRESENTS SUPERFICIAL RUPTURED BLISTER WITH BLANCHEABLE PINK TISSUE EXPOSED ON MOST OF THE WOUND BED, BUT CONTINUES TO HAVE AREAS OF PURPLISH RED NONBLANCHEABLE TISSUE PRESENT. THIS PATIENT REMAINS ON LOW AIRLOSS MATTRESS AND NONTEACHEABLE D/T NONCOMMUNICATIVE FROM OLD TBI.
[2019-11-26 13:04] VITALS: BP 131/32
--- NOTE | 2019-11-26 15:47 | NUR ---
CM SPOKE TO ELIJAH WITH ADMISSIONS WITH [facility] TO F/U ON INSURANCE AUTH FOR PT. ELIJAH INFORMS THAT 'INSURANCE AUTH IS STILL PENDING AT THIS TIME'. CM TO F/U WITH ELIJAH TOMORROW. CM WILL REMAIN AVAILABLE TO ASSIST AND FOLLOW NEEDED.
--- NOTE | 2019-11-26 15:49 | NUR ---
CM SPOKE TO ELIJAH WITH [facility]. ELIJAH INFORMS THAT 'INSURANCE AUTH FOR THE PT REMAINS PENDING AT THIS TIME'. CM TO F/U WITH ELIJAH TOMORROW. CM WILL REMAIN AVAILABLE TO ASSIST AND FOLLOW NEEDED.
[2019-11-26 16:01] VITALS: BP 104/40
[2019-11-26 20:00] VITALS: BP 135/66
[2019-11-27 00:22] VITALS: BP 107/47
[2019-11-27 04:43] VITALS: BP 125/55
[2019-11-27 08:30] VITALS: BP 110/48
--- NOTE | 2019-11-27 10:11 | NUR ---
lukasz schaffer w/keisha at [facility] re: transfer. per keisha "we're at capacity."
[2019-11-27 11:30] VITALS: BP 110/45
--- NOTE | 2019-11-27 11:30 | NUR ---
CM SPOKE TO ELIJAH WITH [facility] ADMISSIONS TO DISCUSS ABILIY ACCEPT HE PT TODAY. ELIJAH INFORMS THAT 'AT THIS TIME THE FACILITY DOES NOT HAVE BED AVAILABILITY. WE HAVE DISCHARGES PENDING, BUT ARE UNSURE IF WE WILL HAVE A BED TODAY'. CM CALLED OTHER LOCAL LTAC'S ([facility], [facility], AND [facility]) TO DISCUSS BED AVAILABLITY AND ALL WERE AT CAPACITY. CM WILL CONTINUE TO FOLLOW TO ASSIST DISCHARGE PLANNING AND TRANSFER TO LTAC.
[2019-11-27 16:37] VITALS: BP 113/43
--- NOTE | 2019-11-27 19:02 | NUR ---
pt remains in contact isolation. pt opens his eyes and makes contact with nursing staff. pt continues to recieve antibiotic therapy via picc line. pt has had good appetite and eats 50% of each meal. pt requires total assist with all aspects of care. wound vac has functioned without difficulty. ferrera and colostomy remain intact. wound care nurse requests picture be taken of pt left heel. this task has not been completed this shift. will discuss with clinical project manager rn assuming care as ask him/her to complete this task. pt at bedside at time of this note
[2019-11-27 19:50] VITALS: BP 110/51
[2019-11-28] VITALS (7 sets, daily range): BP systolic 102–135; BP diastolic 44–62
[2019-11-28 07:02] LABS: ABSOLUTE BASOPHILS 0.1 thou/uL (0.0-0.2); ABSOLUTE EOSINOPHILS 0.7 thou/uL (0.0-0.7); ABSOLUTE MONOCYTES 0.6 thou/uL (0.0-1.2); ABSOLUTE NEUTROPHILS 3.1 thou/uL (1.6-8.1); BASOPHILS 1.2 %; HEMATOCRIT 27.9 % (42.0-52.0); HEMOGLOBIN 9.6 gm/dL (14.0-18.0); LYMPHOCYTES 30.8 %; MCH 28.7 pg (26.0-34.0); MCHC 34.3 g/dL (28.0-37.0); MCV 83.6 fL (80.0-100.0); MONOCYTES 9.2 %; MPV 7.7 fl. (7.2-11.1); NUCLEATED RBCS 0 /100WBC; PLATELET COUNT* 179 thou/uL (150-400); POLYS 47.8 %; RBC 3.33 mil/uL (4.50-6.00); WBC 6.5 thou/uL (4.0-11.0)
[2019-11-28 07:17] LABS: ALBUMIN 2.2 g/dL (3.4-5.0); CALCIUM 8.4 mg/dL (8.5-10.1); CREATININE 0.9 mg/dL (0.6-1.3); POTASSIUM 4.2 mmol/L (3.5-5.1); TOTAL BILIRUBIN 0.2 mg/dL (<0.1-1.0); TOTAL PROTEIN 5.8 g/dL (6.4-8.2)
--- NOTE | 2019-11-28 08:00 | NUR ---
AM ASSESSMENT COMPLETE, DEFER TO COMPUTER CHARTING. RESIDENTIAL DOOR INSTALLER TRACKING SR WITH 1ST DEGREE AVB. ALERT, NON VERBAL - SHOWING NO SIGN OF DISTRESS. WOUND CARE NURSE INTO SEE PATIENT FOR WOUND CARE. PLANS FOR POSSIBLE DISCHARGE TODAY. COLOSTOMY INTACT. HOB ELEVATED. WILL MONITOR.
--- NOTE | 2019-11-28 09:31 | NUR ---
WOUND NURSE; PATIENT SEEN TODAY FOR FOLLOW UP ASSESSMENT AND WOUND VAC DRESSING CHANGE. SEE SPECIFICS UNDER INTERVENTION. SACRUM PRESENTS WITH MORE RED, GRANULATION TISSUE AND NO BONE VISUALIZED AT THIS TIME. PERIWOUND IS INTACT AND SEROUSANGUINOUS DRAINAGE NOTED. THERE IS 1.6 CM UNDERMINING FROM 3 TO 5 O'CLOCK. RIGHT THIGH SDTI PRESENTS A SHALLOW EROSION WITH PINK BLANCHEABLER TISSUE IN 80 TO 90% OF THE WOUND BED AND 10 TO 20% PURPLISH-RED NONBLANCHEABLE TISSUE IN THE REMAINING WOUND BED. DRESSING WAS CHANGED TO RIGHT THIGH AND SACRAL WOUND DRESSINGS REMOVED AND REAPPLIED. PICTURES WERE TAKEN OF SACRUM, RIGHT THIGH, RIGHT HIP. RIGHT HIP IS RESOLVED WITH INTACT SCAR COVERING THE SITE.
--- NOTE | 2019-11-28 14:42 | NUR ---
HARINI CONTINUES TO ASSIST WITH PT TRANSFER TO LTAC AT [facility]. HARINI SPOKE TO ELIJAH WITH ADMISSION AT [facility] AND HE INFORMS THAT AT THIS TIME 'THERE ARE STILL NO BEDS AVAILABLE. THE ANTICIPATED DISCHARGES DID NOT HAPPEN. IF THEY HAPPEN OVER THE WEEKEND I WILL CONTACT HARINI'. HARINI PROVIDED ELIJAH WITH THE CONTACT INFO FOR THE CM ON-CALL THIS WEEKEND WELL THE PHONE NUMBER FOR HE NURSES STATION IN THE EVENT THAT A BED BECOMES AVAILABLE. CM WILL REMAIN AVAILABLE TO ASSIST AND FOLLOW NEEDED. PENDING SALE TO [facility] (ELIJAH) PHONE: [phone]
--- NOTE | 2019-11-28 15:43 | NUR ---
cm f/u w/the following ltac re: bed availability: [facility], no beds and there is a slim chance they will have beds next week/[facility] - no beds/[facility] - left for [facility], gary. [facility] - no answer in intake dept.
--- NOTE | 2019-11-28 16:52 | NUR ---
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 REMAINS IN ISOLATION. ASSIST GIVEN WITH MEALS - FEEDER, TOLEARING DIET. WOUND VAC AND COLOSTOMY INTACT. AWAKE MOST OF SHIFT, REMAINS NON VERBAL - NO GRIMACING OR SIGNS OF DISCOMFORT. HOB ELEVATED - HEELS ELEVATED OFF MATTRESS WITH PILLOW. AT BEDSIDE VISITING. ASSESSMENT REMAINS UNCHANGED AT THIS TIME. WILL CONTINUE WITH PLAN OF CARE.
--- NOTE | 2019-11-28 16:53 | NUR ---
I have reviewed the documentation by KATIANA MOORE from 11/28/19 to 11/28/19 and I concur with it. CARLOS JARVIS
--- NOTE | 2019-11-29 00:13 | NUR ---
INITAL ASSESMENT COMPLETED AT 194. PT'S AT BEDSIDE ASSISTING WITH CARE AT THAT TIME. ORAL CARE AND SUCTIONING DONE. HS MEDS GIVEN PER EMAR. PT TURNED Q 2 HRS. BED ALARM ON, FREQUENT VISUAL CHECKS DONE.
[2019-11-29 04:06] VITALS: BP 142/57
[2019-11-29 06:07] LABS: HEMATOCRIT 26.7 % (42.0-52.0); HEMOGLOBIN 9.1 gm/dL (14.0-18.0); MCH 28.6 pg (26.0-34.0); MCHC 34.2 g/dL (28.0-37.0); MCV 83.6 fL (80.0-100.0); MPV 7.2 fl. (7.2-11.1); NUCLEATED RBCS 0 /100WBC; PLATELET COUNT* 169 thou/uL (150-400); RBC 3.19 mil/uL (4.50-6.00); RDW-CV 16.2 % (10.5-14.5); WBC 5.9 thou/uL (4.0-11.0)
[2019-11-29 06:25] LABS: CREATININE 0.9 mg/dL (0.6-1.3); POTASSIUM 4.2 mmol/L (3.5-5.1)
[2019-11-29 07:22] LABS: ABSOLUTE BASOPHILS 0.1 thou/uL (0.0-0.2); ABSOLUTE EOSINOPHILS 0.5 thou/uL (0.0-0.7); ABSOLUTE LYMPHOCYTES 2.2 thou/uL (0.8-5.3); ABSOLUTE MONOCYTES 0.6 thou/uL (0.0-1.2); ABSOLUTE NEUTROPHILS 2.5 thou/uL (1.6-8.1); METAMYELOCYTES 1 %
[2019-11-29 07:23] LABS: PLATELET ESTIMATE ADEQUATE
[2019-11-29 08:00] VITALS: BP 119/54
[2019-11-29 12:42] VITALS: BP 125/58
[2019-11-29 17:24] VITALS: BP 110/58
--- NOTE | 2019-11-29 19:15 | NUR ---
ASSUMED CARE OF PT APPROX 0730. REASSESMENT COMPLETED CHARTED. MEDICATIONS GIVEN CHARTED. PT IS BEDBOUND AND NON VERBAL. SAFTEY PRECAUTIONS UTILIZED, HOULRY ROUNDING.
[2019-11-29 20:20] VITALS: BP 130/51
[2019-11-29 23:27] VITALS: BP 104/48
[2019-11-30 04:21] VITALS: BP 110/50
--- NOTE | 2019-11-30 05:52 | NUR ---
PT CARE ASSUMED AT 1930. SAT MAINTAINED IN RA. PT IS NON-VERBAL. WOUND VAC IN PLACE. CALL LIGHT WITHIN REACH AND BED IN LOW POSITION. HOURLY ROUNDING DONE FOR PT SAFETY.
[2019-11-30 08:00] VITALS: BP 121/56
[2019-11-30 11:50] VITALS: BP 112/60
--- NOTE | 2019-11-30 15:53 | NUR ---
ASSUMED CARE OF PT APPROX 0730. REASSESMENT COMPLETED CHARTED. MEDICATIONS GIVEN CHARTED. PT SUCTIONED DIRECTED, TOLEREATED WELL. HOURLY ROUNDING, SAFTEY PRECAUTIONS UTILIZED.
[2019-11-30 16:05] VITALS: BP 109/58
[2019-11-30 19:30] VITALS: BP 12/59; BP 123/59
[2019-12-01] VITALS: BP 123/59
[2019-12-01 04:27] VITALS: BP 126/63
--- NOTE | 2019-12-01 04:52 | NUR ---
PT RESTED WELL THROUGHOUT HOURLY ROUNDING SUCTIONED ORAL SECRECTIONS FREQ . CARDIAC RHYTHM SHOWS NSR. COLOSTOMY WITH BROWN FORMED STOOL NOTED AND CLER YELLOW URINE NOTED IN NOLASCO BAG. WILL CONITINUE WITH CURRENT PLAN OF CARE AND REPORT CHANGES.
[2019-12-01 07:30] VITALS: BP 121/45
[2019-12-01] MEDS ORDERED: LINEZOLID600 MG PO (09:03)
[2019-12-01] MEDS ORDERED: FLORASTOR250 MG PO (09:03)
[2019-12-01] MEDS ORDERED: ERTAPENEM1 GM IV (09:03)
--- NOTE | 2019-12-01 09:56 | NUR ---
WOUND NURSE: PATIENT SEEN FOR FOLLOW UP CARE TO SACRAL PRESSURE INJURY: MEASURES 4.5 X 2.5 X 1.5 CM AND WITH UNDERMINING FROM 9 TO 5 O'CLOCK MEASURING 1.5 CM. APPROXIMATELY 90% RED, GRANULATION TISSUE AND 10% BEIGE COLORED FIBROTIC TISSUE AND ONE PALPABLE SPLINTER OF BONE NOTED. THERE IS A MODERATE AMOUNT OF SEROUSANGUINOUS DRAINAGE PRESENT. PERIWOUND TISSUE IS INTACT. CLEANSED WITH SOAP & WATER, RINSED, THEN PATTED DRY. APPLIED EXUDERM LP TO PERIWOUND FOR PROTECTION. THEN APPLIED WOUND VAC DRESSING PER PROTOCAL. SETTINGS 150MMHG CONTINUOUS NEG PRESSURE, INTENSITY HIGH. RIGHT ISCHIUM WOUND NOW MEASURES 3.5 X 2.5 X 0.1 CM. FULL THICKNESS TISSUE LOSS AND WITH RED AND PINK NONGRANULATING TISSUE NOTED. WOUND EDGES WITH PINK NEW SCAR TISSUE NOTED. SMALL AMOUNT OF SERUSANGUINOUS DRAINAGE NOTED. CLEANSED WITH SOAP AND WATER, RINSED WITH WATER, PATTED DRY. APPLIED SKIN PREP TO PERIWOUND, THEN APPLIED AQUACEL AG TO WOUND, THEN SECURED IN PLACE WITH TRANSPARENT DRESSING. PATIENT IS NOT TEACHEABLE AND CG IS NOT HERE.
[2019-12-01 11:48] VITALS: BP 144/62
--- NOTE | 2019-12-01 13:40 | NUR ---
ALERT TO PERSON ONLY. NON-VERBAL. UNABLE TO MOVE SELF IN BED. LUNGS CLEAR, HEART TONES REGULAR. +BS X 4 QUADS. COLOSTOMY LEFT LOWER QUAD. SMALL AMOUNT FORMED STOOL IN BAG. PEDAL PULSES PRESENT. CALF SCD'S ON. INDWELLING NOLASCO CATH INTACT AND PATENT CLEAR YELLOW URINE. PICC LINE RIGHT UPPER ARM INTACT AND PATENT WITH 3 PIG TAILS ALL FLUSHED. 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 WOUND TO RIGHT BUTTOCK AND COCCYI CHANGED BY WOUND NURSE TODAY. WOUND VAC ON. PATIENT SUCTIONED X 1 TODAY DID NOT GET ANY SECRETIONS. LEFT ARM CONTRACTURED AND WASH CLOTH PUT IN LEFT HAND. NO C/O. WILL CONTINUE TO MONITOR. SR WITH 1 DEGREE AV BLOCK.
--- NOTE | 2019-12-01 14:04 | NUR ---
PT DISCHARGED VIA [facility] TO [facility] AT THIS TIME.
--- NOTE | 2019-12-01 14:13 | NUR ---
CM CONTINUES TO ATTEMPT TO SECURE LTAC TX TO [facility] FOR PT. REI WITH [facility] INFORMS THAT 'AT THIS TIME THERE AT NO BEDS AVAILABLE. ANTICIPATED D/C'S FELL THROUGH'. CM FAXED UPDATED CLINICAL INFO TO [facility] TO ASSIST IN KEEPING INSURANCE AUTH UP-TO-DATE. CM ALSO CALLED ADMISSIONS WITH [facility] 'NO BED AVAILABLE AT THIS TIME'. [facility] TO ASSESS BED AVAILABILITY. [facility] ADMISSIONS RETURNS CALL AND INFORMS THAT THEY ARE WILLING TO REVIEW THE ADMISSION AND RETURN CALL. CM WILL REMAIN AVAILABLE TO ASSIST AND FOLLOW NEEDED.
--- NOTE | 2019-12-01 14:53 | NUR ---
REPORT GIVEN TO KASIA
[2019-12-01 16:00] VITALS: BP 128/59
--- NOTE | 2019-12-01 18:13 | NUR ---
ASSUMED PT CARE AT 1630, PT NONVERBAL AND QUADRIPLEGIC. PT BEING TURNED Q2H AND HAS WOUND VAC IN PLACE FOR COCCYX AND BUTTOCK WOUNDS. PT'S CHOSE TO FEED HIM DINNER THIS AFTERNOON, HIS GOAL IS TO REMAIN FREE FROM FURTHER SKIN BREAKDOWN AND REMAIN FREE FROM ASPIRATION. THIS RN AGREES W/ LAST RN'S ASSESSMENT OF PT, MEDS PER MAY, HOURLY ROUNDING OBSERVED, FALL PRECAUTIONS IN PLACE, CALL LIGHT W/IN REACH, PT IN ISO FOR VRE AND MRSA.
[2019-12-01 20:30] VITALS: BP 98/44
[2019-12-02] VITALS: BP 125/50
[2019-12-02 04:00] VITALS: BP 126/60
--- NOTE | 2019-12-02 04:40 | NUR ---
PT QUADRIPLEGIC, NONVERBAL. PILLS CRUSHED AND GIVEN WITH APPLE SAUCE. WOUND VAC IN PLACE. DRESSING INTACT. COLOSTOMY BAG EMPTIED. PT REPOSITIONED EVERY 2HRS. ISOLATION FOR MRSA, VRE. NOLASCO IN PLACE. WILL CONTINUE TO MONITOR.
[2019-12-02 08:00] VITALS: BP 117/62
--- NOTE | 2019-12-02 16:37 | NUR ---
CM CONTINUES TO SECURE LTAC PLACEMENT FOR PT. CM CALLED TO F/U WITH [facility] 'NO BEDS AVAILABLE, BUT ANTICIPATE D/C'S TOMORROW. CM CALLED TO ASSESS BED AVIALABLILITY AT [facility] 'NO BED AVAILABLE'. [facility] 'NO BEDS AVAILABLE UNITL THE END OF THE WEEK'. [facility] 'ONLY BED AVIALBLE, GIVEN TO YOUR OTHER PT'. BED AVAILABLITY CONTINUES TO BE THE ONLY BARRIER FOR THIS PATIENT. CM WILL REMAIN AVAILABLE TO ASSIST AND FOLLOW NEEDED.
[2019-12-02 17:03] VITALS: BP 105/63
[2019-12-02 19:45] VITALS: BP 103/53
[2019-12-03 04:49] VITALS: BP 99/43
--- NOTE | 2019-12-03 05:00 | NUR ---
PT SLEPT MOST OF SHIFT. ASSESSMENT DOCUMENTED. MEDS GIVEN PER E-MAR. PICC PATENT. TYLENOL GIVEN FOR DISCOMFORT, PT WAS HOLDING HIS HEAD AND GRUNTING. PT REPOSITIONED THROUGH NIGHT. WOUND VAC IN PLACE.
[2019-12-03 07:55] VITALS: BP 115/48
--- NOTE | 2019-12-03 09:52 | NUR ---
ASSUMED CARE OF PT THIS AM AROUND 714- MS STATUS IN PLACE ORDERED- UPON ASSESSMENT PT NOTED TO BE RESTING IN BED EYES CLOSED- KPT NON-VERBAL, BUT DOES OPEN EYES AND FOLLOW SOME DIRECTION-COLOSTOMY NOTED WITH FORMED/SOFT BROWN STOOL- NOLASCO IN PLACE D/D CLEAR YELLOW URINE- Q2 HOUR TURNS IN PLACE INDICATED R/T QUADDRPLEGIC- - FEEDED WITH MEALS, FAIR PO INTAKE NOTED THIS AM WITH BREAKFAST- ABD SOFT/ROUND/NON-TENDER, BS X4 QUADS- TRACE EDEMA NOTED TO BLE WITH SCD'S IN PLACE INDICATED- WN HERE TO CHANGE WV TO SACRAL WOUND THIS AM AND DRESSING TO RIGHT BUTTOCKS INDICATED WITH PCTURES OBTAINED AND PLACED ON CHART FOR VIEWING- RUE PICC NOTED C/D/I AND SL- IV ABT GIVEN THIS AM PRESCRIBED- PT EXPRESSES CONCERN FR PT HAVING PAIN LAST HS- IBUPROHNE ORDERED THIS AM GIVEN PRESCRIBED- CALL LIGHT AND PERSONAL BELONGINGS WITH IN REACH- HOURLY ROUNDS IN PLACE R/T SAFETY/NEEDS- ALL NEEDS MET AT THIS TIME-WCTM
[2019-12-03 10:16] LABS: HEMOGLOBIN 11.1 gm/dL (14.0-18.0); MCH 28.1 pg (26.0-34.0); MCHC 33.6 g/dL (28.0-37.0); MCV 83.6 fL (80.0-100.0); MPV 7.3 fl. (7.2-11.1); RBC 3.94 mil/uL (4.50-6.00); RDW-CV 16.5 % (10.5-14.5); WBC 5.9 thou/uL (4.0-11.0)
[2019-12-03 10:30] LABS: CALCIUM 9.3 mg/dL (8.5-10.1); CREATININE 1.1 mg/dL (0.6-1.3); MAGNESIUM 2.2 mg/dL (1.8-2.4); POTASSIUM 4.6 mmol/L (3.5-5.1)
--- NOTE | 2019-12-03 14:53 | NUR ---
WOUND NURSE: PATIENT SEEN THIS AM FOR DRESSING CHANGE TO SACRUM AND LEFT THIGH WOUND. SACRAL STAGE 4 PRESSURE INJURY MEASURES 4.0 X 3.0 X 1.5 CM AND 1.5 CM UNDERMINING FROM 12 TO 5 O'CLOCK. WOUND BED WITH RED GRANULATION TISSUE COVERING >90% OF THE WOUND AND OFF WHITE COLORED FIBROUS TISSUE AND ONE SPLINTER OF BONE IN THE REMAINING WOUND BED. THERE IS SEROUSANGUINOUS DRAINAGE NOTED IN MODERATE AMOUNT. PERIWOUND TISSUE IS UNREMARKABLE. WOUND VAC DRESSING WAS APPLIED PER PROTOCAL SEE INTERVENTION. RT POSTERIOR THIGH WOUND BANDAGE WAS ALSO CHANGED PRESCRIBED. MEASURES 2. 5 X 2.5 X 0.1 CM. RESTAGED THIS WOUND TO STAGE 3 BASED ON IT'S CURRENT CHARACTERISTICS. PHOTOGRAPHS WERE TAKEN OF BOTH WOUNDS.
[2019-12-03 20:00] VITALS: BP 114/54
[2019-12-04 00:30] VITALS: BP 127/63
--- NOTE | 2019-12-04 04:25 | NUR ---
ASSUMED PT CARE AT 1915. NURSING ASSESSMENT COMPLETED AT START OF SHIFT. PT M/S STATUS. Q2H REPOSITIONING COMPLETED. NEGATIVE SEPSIS SCREEING THIS SHIFT. HOURLY ROUNDING COMPLETED. ALL NEEDS MET. NO S/S OF PAIN OBSERVED.
[2019-12-04 08:00] VITALS: BP 122/80
[2019-12-04 12:00] VITALS: BP 108/42
--- NOTE | 2019-12-04 15:07 | NUR ---
CM INFORMED BY THE HOSPITALIST THAT THE PT'S SPOUSE IS REQUESTING THAT THE PT D/C HOME WITH HH AND IV ABT'S. HOSPITALIST PLANS TO D/C THE PT TOMORROW. CM SPOKE TO THE PT TO DISCUSS THIS AND SHE CONFIRMS THE ABOVE INFO. PT INFORMS THAT SHE HAS GIVEN THE PT IV ABT'S IN THE PAST WITH [facility] AND HAS [facility] TAKEN CARE OF HIM AND HIS WOUND CARE WITH [facility] ASSISTANCE. CM SPOKE TO INTAKE WITH [facility] TO INFORM THAT THE PT WILL D/C HOME TOMORROW WITH WOUND VAC AND IV ABTS. [facility] IN AGREEMENT AND CONFIRM ABILITY TO ACCEPT THE PT AT D/C PENDING D/C ORDERS INCLUDING HH, WOUND CARE, AND IV ABTS. CM ALSO SENT A REFERRAL TO [facility] TO INFORM OF THE REFERRAL AND PT'S D/C TOMORROW. [facility] RETURNED CALL AND INFORMS THAT THE CO-PAY FOR IV ABT'S IS $5 PER/WK AND ALL SUPPLIES ARE COVERED AT NO COST. CM FAXED ALL CLINICAL INFO TO [facility] AND [facility]. CM TO FAX PT'S D/C ORDERS AND ABT ORDERS TO [facility] AND [facility] WHEN AVAILABLE. CM WILL REMAIN AVAILABLE TO ASSIST AND FOLLOW NEEDED. [facility] PHONE: [phone] FAX: [phone] [facility] PHONE: [phone] FAX: [phone]
[2019-12-04 16:00] VITALS: BP 117/56
[2019-12-04 20:00] VITALS: BP 119/70
[2019-12-05] VITALS: BP 115/52
[2019-12-05 07:45] VITALS: BP 115/47
[2019-12-05 10:06] VITALS: BP 115/52
[2019-12-05 10:10] VITALS: BP 115/52
--- NOTE | 2019-12-05 11:00 | NUR ---
PT.TO BE DISCHARGED TODAY WITH HOME HEALTH AND IV ANTIBIOTIC DAILY. SPOKE WITH [facility]IER/FIONA. SHE WAS AWARE PT.TO BE DISCHARGED TODAY. FAXED DISCHARGE SUMMARY TO HER [phone]. THEY WILL RESUME SERVICE. SHE WAS AWARE PT.TO HAVE IVAB LATER TODAY 5-6PM. [facility] PROVIDING IV ERTAPENEM. CALLED IN PRESCRIPTION FOR DRUG WRITTEN TO MARLENA MENDEZ [phone]. SHE SAID IT WOULD BE DELIVERED TO PTS HOME NO LATER THAN 4 PM. S.O. REFUSING TO WAIT TO RECEIVE FIRST DOSE OF ERTAPENEM. KRISTIN VALLE SAID HE HAS HAD IT BEFORE. FAXED DISCHARGE SUMMARY TO [facility] [phone]. 1700-S.O. REFUSING TO GIVE PT PO ZYVOX BECAUSE SHE KNOWS IT CAUSED A GI BLEED BEFORE WHEN HE TOOK IT. SHE WANTED TO SEE HOW MUCH IV WOULD COST. HARINI CHECKED WITH [facility]. SHE RAN DRUG AND IT WOULD BE $5 FOR PRESCRIPTION. [facility] STATED THEY DID NOT HAVE IT IN STOCK AND DID NOT KNOW WHEN THEY WOULD HAVE IT. [facility].O. NOTIFIED . SHE TOLD ME THE NEXT TIME PT.HAD TO BE IN HOSPITAL SHE WAS NOT COMING BACK HERE. SHE WOULD TAKE HIM TO [facility]. THEY HAVE HAD A BAD EXPERIENCE ALL THE WAY AROUND. SHE ASKED IF ANY OTHER INFUSION CO. WOULD HAVE ZYVOX IN STOCK. HARINI CALLED [facility] AND SPOKE WITH MAX/PHARMACIST. HE SAID THEY COULD NOT BILL ALONG WITH ANOTHER INFUSION CO. [facility] INFORMED. TOLD HER RECOMMENDED ORAL ZYVOX BUT IT WAS HER CHOICE. SHE WAS AWARE PT.WAS MRSA POSITIVE.
[2019-12-05 12:08] VITALS: BP 115/52
--- NOTE | 2019-12-05 12:55 | NUR ---
PATIENT DISCHARGED TO HOME WITH HOME HEALTH. DISCHARGE PAPERS REVIEWED AND SIGNED WITH SPOUSE. PATIENT DRESSED AND MOVED TO ELECTRIC WHEELCHAIR. SPOUSE HAD CONCERNS OVER PO ZYVOX AND DID NOT WANT TO BE DISCHARGED ON ORAL ZYVOX.DR ABDULLAHI NOTIFIED AND DID RECOMMEND PATIENT CONTINUE ZYVOX. PATIENT SPOUSE REQUESTED IT BE CHANGED TO IV DUE TO PREVIOUS GI BLEED SHE ATTRIBUTED TO ORAL ZYVOX. ORDER RECEIVED TO CHANGE TO IV. CM CHECKING WITH INSURANCE. PATIENT SPOUSE DID NOT WANT TO WAIT FOR CM AND STATED CM COULD CALL HER AT HOME WITH INFORMATION. IV ERTAPENEM SET UP FOR HOME TO BE ADMINISTERED TODAY, NOT GIVEN AT HOSPITAL, ONCE A DAY ORDER. PICC LINE TO RIGHT ARM IN PLACE. PATIENT TAKEN BY ELECTRIC WHEELCHAIR TO EXIT. LEFT WITH SPOUSE.
--- NOTE | 2019-12-05 13:22 | NUR ---
WOUND NURSE: PATIENT RECEIVED DRESSING CHANGE TO RIGHT POSTERIOR THIGH AND SACRAL PRESSURE INJURY. SEE NURSING INVERVENTION PERTAINING TO DRESSING CHANGES. PATIENT ALSO WITH RSORBING BULLA ON THE LEFT HEEL BEING PROTECTED WITH HEELMEDIX OFF LOADING BOOT. A PICTURE WAS TAKEN OF THE HEEL. NO DRESSING REQUIRED AT THIS TIME. PATIENT TO BE DISCHARGED TO HOME TODAY WITH FOLLOW UP IN WOUND CARE CENTER NEXT WEEK.
== END 2019-12-05 12:55 | disposition home health service (06) | DRG 853 ==
LOC: M.ERS 20:49 → M.2W 11-20 01:09 → M.TBA-ER 11-20 01:09 → M.2W 11-20 03:45 → M.3W 12-05 07:01
PROVIDERS: Emergency Medicine; Internal Medicine; ADMIT Internal Medicine; ATTEND Internal Medicine
PROC: 02HV33Z Insertion of Infusion Device into Superior Vena Cava, Percutaneous Approach (ICD-10-PCS; principal; 2019-11-21)
PROC: B548ZZA Ultrasonography of Superior Vena Cava, Guidance (ICD-10-PCS; principal; 2019-11-21)
PROC: B5181ZA Fluoroscopy of Superior Vena Cava using Low Osmolar Contrast, Guidance (ICD-10-PCS; principal; 2019-11-21)
PROC: 0QB10ZZ Excision of Sacrum, Open Approach (ICD-10-PCS; 2019-11-26)
PROC: 0JBL0ZZ Excision of Right Upper Leg Subcutaneous Tissue and Fascia, Open Approach (ICD-10-PCS; 2019-11-26)
DX: A41.9 Sepsis, unspecified organism (principal); N17.0 Acute kidney failure with tubular necrosis; G93.41 Metabolic encephalopathy; E43 Unspecified severe protein-calorie malnutrition; L89.154 Pressure ulcer of sacral region, stage 4; R53.2 Functional quadriplegia; N30.01 Acute cystitis with hematuria; I10 Essential (primary) hypertension; K43.9 Ventral hernia without obstruction or gangrene; I35.0 Nonrheumatic aortic (valve) stenosis; E86.0 Dehydration; R13.10 Dysphagia, unspecified; I73.9 Peripheral vascular disease, unspecified; E03.9 Hypothyroidism, unspecified; E78.5 Hyperlipidemia, unspecified; K59.00 Constipation, unspecified; L89.212 Pressure ulcer of right hip, stage 2; K43.5 Parastomal hernia without obstruction or gangrene; Z87.820 Personal history of traumatic brain injury; Z85.51 Personal history of malignant neoplasm of bladder; Z20.828 Contact with and (suspected) exposure to other viral communicable diseases; Z89.421 Acquired absence of other right toe(s); Z83.6 Family history of other diseases of the respiratory system; Z86.14 Personal history of Methicillin resistant Staphylococcus aureus infection; Z82.49 Family history of ischemic heart disease and other diseases of the circulatory system; Z83.3 Family history of diabetes mellitus; Z93.3 Colostomy status; Z79.899 Other long term (current) drug therapy

== ENCOUNTER → 2019-12-16 | Outpatient (CLI) | payer BC ==
[~2019-12-16] MED LIST changes: +ERTAPENEM1 GM IV; +FLORASTOR250 MG PO
[2019-12-16 14:31] LABS: HEMATOCRIT 33.4 % (42.0-52.0); HEMOGLOBIN 10.6 gm/dL (14.0-18.0); MCH 26.4 pg (26.0-34.0); MCHC 31.7 g/dL (28.0-37.0); MCV 83.5 fL (80.0-100.0); MPV 7.7 fl. (7.2-11.1); NUCLEATED RBCS 0 /100WBC; PLATELET COUNT* 412 thou/uL (150-400); RDW-CV 17.2 % (10.5-14.5); WBC 12.6 thou/uL (4.0-11.0)
[2019-12-16 14:53] LABS: ALBUMIN 3.3 g/dL (3.4-5.0); CALCIUM 9.6 mg/dL (8.5-10.1); POTASSIUM 4.8 mmol/L (3.5-5.1); TOTAL BILIRUBIN 0.3 mg/dL (<0.1-1.0); TOTAL PROTEIN 8.2 g/dL (6.4-8.2)
[2019-12-16 14:55] LABS: ABSOLUTE EOSINOPHILS 1.8 thou/uL (0.0-0.7); ABSOLUTE LYMPHOCYTES 2.4 thou/uL (0.8-5.3); ABSOLUTE MONOCYTES 0.9 thou/uL (0.0-1.2); ABSOLUTE NEUTROPHILS 7.6 thou/uL (1.6-8.1); PLATELET ESTIMATE ADEQUATE
[2019-12-16 15:39] LABS: ESR (SEDRATE) 94 mm/hr (0-20)
== END ==
LOC: M.LAB 13:59
PROVIDERS: ATTEND Internal Medicine
DX: L89.154 Pressure ulcer of sacral region, stage 4 (principal); N17.0 Acute kidney failure with tubular necrosis; R53.2 Functional quadriplegia; A41.9 Sepsis, unspecified organism; N30.91 Cystitis, unspecified with hematuria

== ENCOUNTER → 2019-12-16 | Outpatient (CLI) | payer BC | LOC: M.WC 05:28 | PROVIDERS: ATTEND Emergency Medicine Undersea and Hyperbaric Medicine | DX: L89.154 Pressure ulcer of sacral region, stage 4 (principal); I10 Essential (primary) hypertension; Z85.51 Personal history of malignant neoplasm of bladder; Z87.820 Personal history of traumatic brain injury ==

== ENCOUNTER → 2019-12-30 | Outpatient (CLI) | payer BC | LOC: M.WC 00:36 | PROVIDERS: ATTEND Emergency Medicine Undersea and Hyperbaric Medicine | DX: L89.154 Pressure ulcer of sacral region, stage 4 (principal); I10 Essential (primary) hypertension; Z87.820 Personal history of traumatic brain injury; Z85.51 Personal history of malignant neoplasm of bladder ==

== ENCOUNTER → 2020-01-13 | Outpatient (CLI) | payer BC | LOC: M.WC 09:55 | PROVIDERS: ATTEND Emergency Medicine Undersea and Hyperbaric Medicine | DX: L89.154 Pressure ulcer of sacral region, stage 4 (principal); I10 Essential (primary) hypertension; Z87.820 Personal history of traumatic brain injury; Z85.51 Personal history of malignant neoplasm of bladder ==